=== PATIENT | female | born 1960 | race Caucasian/White ===

== ENCOUNTER 2017-08-06 12:02 | Inpatient (IN) | payer OTHER ==
[2017-08-06] MEDS ORDERED: NA CHLORIDE 0.9% 1,000 ML ONE ×3 (12:37→21:25)
[2017-08-06 13:06] LABS: Absolute Lymphocytes (CBC) 0.8 K/uL (0.7-4.9); Absolute Monocytes 1.2 K/uL (0.1-1.3); Absolute Neutrophil 11.9 K/uL (1.8-8.0); Basophils % 0.1 % (0-1.3); Eosinophils % 0.7 % (0-4.4); Hematocrit 43.9 % (36.0-45.0); MCH 29.6 pg (27.0-35.0); MPV 8.7 fL (7.6-11.3); Monocytes % 8.5 % (3.3-12.3); RBC Red Blood Cell Count 4.93 M/uL (3.86-4.86)
[2017-08-06] MEDS ORDERED: FENTANYL CITR 100 MCG/2 ML ONE ×2 (13:09→19:45)
[2017-08-06 13:11] LABS: Bilirubin Direct 0.2 mg/dL (0-0.2); Bilirubin Total 1.2 mg/dL (0.3-1.2); Protein, Total 7.7 g/dL (6.0-8.3)
[2017-08-06 13:18] LABS: Arterial Blood Carboxyhemoglob 3.9 % (0-1.5); Blood Gas Oxyhemoglobin 79.3 % (94-97); Blood O2 Saturation 83.4 % (92-98.5)
--- NOTE | 2017-08-06 13:26 | RAD REPORT ---
EXAM DESCRIPTION: CT - Stone Protocol - 08/06/2017 12:45 pm CLINICAL HISTORY: Abdominal pain, left flank pain COMPARISON: None. TECHNIQUE: Axial 5 mm thick images were obtained without oral or IV contrast. The ohith-tb-buux span s the entirety of the system partially obscuring uppermost abdomen and lung bases. All CT scans are performed using dose optimization technique as appropriate and may include automated exposure control or mA/KV adjustment according to patient size. FINDINGS: Moderate severity hydronephrosis of the left pelvis and calices noted secondary to a 15 mm UPJ calculus. An additional 6 millimeter calcification is present in the lower pole on the left. Lef t kidney is enlarged and edematous relative to the right. No right-sided hydronephrosis or calculi. N o suspicious renal masses. Isodense masses and pyelonephritis are not excluded on a stone protocol CT scan. Small incidental left adrenal adenoma present. Contracted urinary bladder shows no bladder jennifer culi. Uterus and ovaries show no suspicious findings. Imaged portions of the liver, spleen and pancreas show no suspicious findings on non-contrast imaging . No gallbladder or biliary tree abnormality identified. No stomach or small bowel abnormality identified. There is a large amount of stool filling the colon from cecum to splenic flexure. No active colon process suspected. No hernia, mass or bulky lymphadenopathy noted. No free air, free fluid or inflammatory stranding. No acute or destructive bone process. Degenerative changes are present. Patient has relatively dense calcifications of the infrarenal aorta. No aneurysm. IMPRESSION: At least moderate severity hydronephrosis of the left pelvis and calices secondary to a 15 millimeter UPJ calculus. Left kidney is enlarged and edematous relative to the right. There is a nonobstructing 6 mm calcifica tion in the lower pole. Large amount of stool in the colon from cecum to splenic flexure. No active or acute GI process suspe cted. Isodense masses and pyelonephritis are not excluded on stone protocol technique.
[2017-08-06 13:29] LABS: Urine Blood 2+ (NEG); Urine Glucose 2+ (NEG); Urine Protein 1+ (NEG); Urine Specific Gravity 1.015 (1.005-1.030)
--- NOTE | 2017-08-06 15:53 | ER ---
Nurse's Notes [facility] Name: Melonie Boyd Age: 56 yrs Sex: Female : 1960 Arrival Date: 08/06/2017 Time: 12:05 Bed 19 Private MD: Diagnosis: Hydronephrosis with renal and ureteral calculous obstruction Presentation: 08/06 12:09 Presenting complaint: Patient states: I have pain across my lower back and on my left la1 flank, last BM on Tuesday and vomited a couple days ago. Transition of care: patient was not received from another setting of care. Onset of symptoms was August 06, 2017. Initial Sepsis Screen: Does the patient meet any 2 criteria? HR > 90 bpm. No. Patient's initial sepsis screen is negative. Does the patient have a suspected source of infection? No. Patient's initial sepsis screen is negative. Care prior to arrival: None. 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 N/A - ao Historical: - Allergies: 12:08 all abx except doxycycline; la1 12:08 Codeine; la1 - Home Meds: 19:17 Victoza 2-Maury 0.6 mg/0.1 mL (18 mg/3 mL) subcutaneous pnij 0.2 mL once daily [Active]; ao Farxiga 5 mg oral tab 1 tab once daily [Active]; digoxin 250 mcg Oral tab 1 tab once daily [Active]; digoxin 125 mcg Oral tab 1 tab once daily [Active]; losartan 25 mg oral tab 1 tab once daily [Active]; metformin 1,000 mg Oral tr24 1 tab once daily [Active]; glimepiride 4 mg Oral tab 1 tab once daily [Active]; - PMHx: 12:08 Diabetes - NIDDM; la1 - PSHx: 12:08 None; la1 - Immunization history:: Adult Immunizations up to date. - Social history:: Smoking status: Patient uses tobacco products, smokes one-half pack cigarettes per day. Screenin:38 Abuse screen: Denies threats or abuse. Denies injuries from another. Nutritional ch screening: No deficits noted. Tuberculosis screening: No symptoms or risk factors identified. Fall Risk None identified. Assessment: 12:38 General: Appears in no apparent distress. comfortable, Behavior is cooperative, appropriate for age, quiet. Pain: Complains of pain in posterior aspect of left lateral abdomen, anterior aspect of left lateral abdomen, right lower quadrant and left lower quadrant Pain currently is 9 out of 10 on a pain scale. Pain began gradually, 2-3 days ago. Neuro: No deficits noted. Respiratory: Airway is patent Respiratory effort is even, unlabored, Breath sounds are clear bilaterally. GI: Bowel sounds present X 4 quads. Abdomen is tender to palpation X 4 quads. pt abdomen is slightly firm. Reports bloating, constipation, nausea, vomiting. : No signs and/or symptoms were reported regarding the genitourinary system. Derm: Skin is jaundiced. Derm: mildly. Musculoskeletal: No signs and/or symptoms reported regarding the musculoskeletal system. 12:40 Reassessment: Patient appears in no apparent distress at this time. pt transported to ct. 14:02 Reassessment: Patient appears in no apparent distress at this time. Patient and/or rb1 family updated on plan of care and expected duration. Pain level reassessed. Patient is alert, oriented x 3, equal unlabored respirations, skin warm/dry/pink. 14:56 Reassessment: Patient appears in no apparent distress at this time. Patient and/or ch family updated on plan of care and expected duration. Pain level reassessed. Patient is alert, oriented x 3, equal unlabored respirations, skin warm/dry/pink. General: Appears in no apparent distress. comfortable, Behavior is calm, cooperative, appropriate for age. 15:16 Reassessment: Dr. Loaiza notified of pt status. awaiting erp reassessment. 17:25 Reassessment: Patient appears in no apparent distress at this time. Patient and/or ch family updated on plan of care and expected duration. Pain level reassessed. Patient is alert, oriented x 3, equal unlabored respirations, skin warm/dry/pink. Patient states feeling better. Patient states symptoms have improved. 18:21 Reassessment: Patient appears in no apparent distress at this time. Patient and/or ch family updated on plan of care and expected duration. Pain level reassessed. Patient is alert, oriented x 3, equal unlabored respirations, skin warm/dry/pink. pt sleeping in room, responds to verbal stimuli Patient states feeling better. Patient states symptoms have improved. 19:15 General: Appears in no apparent distress. comfortable, Behavior is calm, cooperative, ao appropriate for age. Pain: Complains of pain in left low back. Neuro: Level of Consciousness is awake, alert, obeys commands, Oriented to person, place, time, situation, Appropriate for age Moves all extremities. Speech is normal, Facial symmetry appears normal. Cardiovascular: Patient's skin is warm and dry. Respiratory: Airway is patent Respiratory effort is even, unlabored, Respiratory pattern is regular, symmetrical. GI: Abdomen is non-distended. : Reports pain in left flank(s). EENT: No signs and/or symptoms were reported regarding the EENT system. Derm: Skin is jaundiced. Musculoskeletal: No signs and/or symptoms reported regarding the musculoskeletal system. 19:25 Reassessment: Received a phone order from Dr Weber to give patient Reglan 10 MG IVP one ao time. Medication was order and administered. See MAR for administration. 19:30 Reassessment: Patient was taking to OR by OR nurse. Printed labs and other results for ao OR nurse. Patient has been put into a hospital gown. Report given to OR nurse. Patient to be going to her assigned room after surgery. Vital Signs: 12:08 BP 116 / 53; Pulse 120; Resp 24; Temp 99.0(TE); Pulse Ox 100% on R/A; Weight 58.97 kg; la1 Height 5 ft. 9 in. (175.26 cm); 13:25 BP 125 / 61; Pulse 94; Resp 15; Temp 99.5; Pulse Ox 99% on R/A; Pain 8/10; ch 15:17 BP 120 / 64; Pulse 88; Resp 16; Temp 98.9; Pulse Ox 99% on R/A; Pain 4/10; ch 17:25 BP 114 / 78; Pulse 96; Resp 13; Pulse Ox 99% on R/A; Pain 0/10; ch 18:21 BP 126 / 62; Pulse 110; Resp 12; Temp 99.8; Pulse Ox 99% on R/A; Pain 3/10; ch 19:20 BP 120 / 65; Pulse 105; Resp 14; Pulse Ox 97% on R/A; Pain 0/10; ao 12:08 Body Mass Index 19.20 (58.97 kg, 175.26 cm) la1 ED Course: 12:05 Patient arrived in ED. sb2 12:08 Arm band placed on right wrist. la1 12:10 Triage completed. la1 12:10 Yas Sawrtz, RN is Primary Nurse. ch 12:11 Grzegorz Loaiza MD is Attending Physician. gs 12:38 No apparent distress. Resting quietly. ch 12:38 Patient has correct armband on for positive identification. Placed in gown. Bed in low ch position. Call light in reach. Side rails up X 1. Adult w/ patient. Pulse ox on. NIBP on. Warm blanket given. 12:38 No provider procedures requiring assistance completed. Inserted saline lock: 18 gauge ch in right forearm, using aseptic technique. Blood collected. 12:43 CT completed. Patient tolerated procedure well. Patient moved back from CT. bq 12:45 CT Stone Protocol In Process Unspecified. EDMS 15:51 Hina Ace MD is Hospitalizing Provider. gs 16:04 Hospitalizing Provider role handed off by Hina Ace MD gs 16:04 Bello Love MD is Hospitalizing Provider. gs 18:21 Patient admitted, IV remains in place. ch Administered Medications: 12:59 Drug: NS 0.9% 1000 ml Route: IV; Rate: 1 bolus; Site: right forearm; ch 15:14 Follow up: IV Status: Completed infusion; IV Intake: 1000ml ch 14:01 Drug: fentaNYL (PF) 50 mcg Route: IVP; Site: right forearm; rb1 15:14 Follow up: Response: No adverse reaction; Marked relief of symptoms ch 16:45 Drug: Gentamicin 2 mg/kg Route: IVPB; Infused Over: 30 mins; Site: right forearm; ch 17:26 Drug: Gentamicin 117 mg Route: IVPB; Infused Over: 30 mins; Site: right forearm; ch 18:21 Follow up: IV Status: Completed infusion; IV Intake: 100ml ch 19:27 Drug: Reglan 10 mg Route: IVP; Site: right forearm; ao 19:30 Follow up: Response: Patient moved to OR ao Point of Care Testing: Blood Glucose: 19:10 Blood Glucose: 101 mg/dL; ch Ranges: Intake: 15:14 IV: 1000ml; Total: 1000ml. ch 18:21 IV: 100ml; Total: 1100ml. ch Outcome: 15:52 Decision to Hospitalize by Provider. gs 19:11 Condition: stable ao 19:31 Admitted to OR accompanied by nurse, via stretcher, with chart, Other bedside report ao given to OR Nurse. Patient to go to her room after surgery 19:31 Instructed on the need for admit. 19:35 Patient left the ED. ao Signatures: Dispatcher [employer] EDMS Yas Swartz, RN RN Katie Chapman Lee, RN RN la1 Dionne Willis RN RN [facility] Alvarado Sow RN RN ao Starr, Gregory, MD MD [place] sb2 Corrections: (The following items were deleted from the chart) 12:11 12:08 BP 116 / 53; Pulse 120bpm; Resp 19bpm; Pulse Ox 100% RA; Temp 99.0F Temporal; la1 58.97 kg; Height 5 ft. 9 in.; BMI: 19.2; la1 12:11 12:09 Acuity: ABRAHAM 3 la1 la1
--- NOTE | 2017-08-06 15:53 | EDPHYS ---
Physician Documentation [facility] Name: Melonie Byod Age: 56 yrs Sex: Female : 1960 Arrival Date: 08/06/2017 Time: 12:05 Bed 19 Private MD: ED Physician Grzegorz Loaiza HPI: 08/06 15:47 This 56 yrs old Female presents to ER via Ambulatory with complaints of gs Abdominal Pain, Back Pain. 15:47 The patient complains of pain in the left low back and left mid back. The pain radiates gs to the left upper quadrant and left lower quadrant. Onset: The symptoms/episode began/occurred 3 day(s) ago, and became worse and became persistent. Modifying factors: The symptoms are alleviated by nothing. the symptoms are aggravated by nothing. Associated signs and symptoms: Pertinent positives: vomiting. Severity of pain: At its worst the pain was severe in the emergency department the pain is unchanged. The patient has experienced similar episodes in the past, a few times. 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 - ao Historical: - Allergies: 12:08 all abx except doxycycline; la1 12:08 Codeine; la1 - Home Meds: 19:17 Victoza 2-Maury 0.6 mg/0.1 mL (18 mg/3 mL) subcutaneous pnij 0.2 mL once daily [Active]; ao Farxiga 5 mg oral tab 1 tab once daily [Active]; digoxin 250 mcg Oral tab 1 tab once daily [Active]; digoxin 125 mcg Oral tab 1 tab once daily [Active]; losartan 25 mg oral tab 1 tab once daily [Active]; metformin 1,000 mg Oral tr24 1 tab once daily [Active]; glimepiride 4 mg Oral tab 1 tab once daily [Active]; - PMHx: 12:08 Diabetes - NIDDM; la1 - PSHx: 12:08 None; la1 - Immunization history:: Adult Immunizations up to date. - Social history:: Smoking status: Patient uses tobacco products, smokes one-half pack cigarettes per day. ROS: 15:47 All other systems are negative. gs Exam: 15:47 Head/Face: Normocephalic, atraumatic. Eyes: Pupils equal round and reactive to light, gs extra-ocular motions intact. Lids and lashes normal. Conjunctiva and sclera are non-icteric and not injected. Cornea within normal limits. Periorbital areas with no swelling, redness, or edema. ENT: Nares patent. No nasal discharge, no septal abnormalities noted. Tympanic membranes are normal and external auditory canals are clear. Oropharynx with no redness, swelling, or masses, exudates, or evidence of obstruction, uvula midline. Mucous membranes moist. Neck: Trachea midline, no thyromegaly or masses palpated, and no cervical lymphadenopathy. Supple, full range of motion without nuchal rigidity, or vertebral point tenderness. No Meningismus. Chest/axilla: Normal chest wall appearance and motion. Nontender with no deformity. No lesions are appreciated. Cardiovascular: Regular rate and rhythm with a normal S1 and S2. No gallops, murmurs, or rubs. Normal PMI, no JVD. No pulse deficits. Respiratory: Lungs have equal breath sounds bilaterally, clear to auscultation and percussion. No rales, rhonchi or wheezes noted. No increased work of breathing, no retractions or nasal flaring. Abdomen/GI: Soft, non-tender, with normal bowel sounds. No distension or tympany. No guarding or rebound. No evidence of tenderness throughout. 15:47 Skin: Warm, dry with normal turgor. Normal color with no rashes, no lesions, and no evidence of cellulitis. MS/ Extremity: Pulses equal, no cyanosis. Neurovascular intact. Full, normal range of motion. Neuro: Awake and alert, GCS 15, oriented to person, place, time, and situation. Cranial nerves II-XII grossly intact. Motor strength 5/5 in all extremities. Sensory grossly intact. Cerebellar exam normal. Normal gait. 15:47 Constitutional: The patient appears alert, awake, in obvious distress, severely distressed. 15:47 Back: CVA tenderness, that is moderate, is noted on the left. Vital Signs: 12:08 BP 116 / 53; Pulse 120; Resp 24; Temp 99.0(TE); Pulse Ox 100% on R/A; Weight 58.97 kg; la1 Height 5 ft. 9 in. (175.26 cm); 13:25 BP 125 / 61; Pulse 94; Resp 15; Temp 99.5; Pulse Ox 99% on R/A; Pain 8/10; ch 15:17 BP 120 / 64; Pulse 88; Resp 16; Temp 98.9; Pulse Ox 99% on R/A; Pain 4/10; ch 17:25 BP 114 / 78; Pulse 96; Resp 13; Pulse Ox 99% on R/A; Pain 0/10; ch 18:21 BP 126 / 62; Pulse 110; Resp 12; Temp 99.8; Pulse Ox 99% on R/A; Pain 3/10; ch 19:20 BP 120 / 65; Pulse 105; Resp 14; Pulse Ox 97% on R/A; Pain 0/10; ao 12:08 Body Mass Index 19.20 (58.97 kg, 175.26 cm) la1 MDM: 12:25 Patient medically screened. gs 15:47 Differential diagnosis: nephrolithiasis, pyelonephritis, UTI, pancreatitis. Data gs reviewed: vital signs, nurses notes. Response to treatment: and as a result, I will admit patient. Physician consultation: Nazia Weber MD and will see patient in inpatient room. 08/06 12:25 Order name: Basic Metabolic Panel; Complete Time: 13:19 08/06 12:25 Order name: CBC with Diff; Complete Time: 13:19 08/06 12:25 Order name: Hepatic Function; Complete Time: 13:19 08/06 12:25 Order name: Lipase; Complete Time: 13:19 08/06 12:25 Order name: Blood Culture* 08/06 12:25 Order name: Urine Culture 08/06 12:25 Order name: Lactate; Complete Time: 13:59 08/06 12:25 Order name: CT Stone Protocol; Complete Time: 13:59 08/06 12:25 Order name: ABG; Complete Time: 13:59 08/06 12:28 Order name: Urine Dipstick--Ancillary (enter results); Complete Time: 13:59 ag 08/06 12:28 Order name: Urine --Ancillary (enter results); Complete Time: 13:59 ag 08/06 13:20 Order name: Urine Microscopic Only 08/06 19:15 Order name: Glucose, Ancillary Testing EDMS 08/06 12:25 Order name: IV Saline Lock; Complete Time: 12:40 08/06 12:25 Order name: Labs collected and sent; Complete Time: 15:14 08/06 15:53 Order name: NPO; Complete Time: 15:57 08/06 19:09 Order name: Fingerstick Glucose; Complete Time: 19:09 Administered Medications: 12:59 Drug: NS 0.9% 1000 ml Route: IV; Rate: 1 bolus; Site: right forearm; ch 15:14 Follow up: IV Status: Completed infusion; IV Intake: 1000ml ch 14:01 Drug: fentaNYL (PF) 50 mcg Route: IVP; Site: right forearm; rb1 15:14 Follow up: Response: No adverse reaction; Marked relief of symptoms ch 16:45 Drug: Gentamicin 2 mg/kg Route: IVPB; Infused Over: 30 mins; Site: right forearm; ch 17:26 Drug: Gentamicin 117 mg Route: IVPB; Infused Over: 30 mins; Site: right forearm; ch 18:21 Follow up: IV Status: Completed infusion; IV Intake: 100ml ch 19:27 Drug: Reglan 10 mg Route: IVP; Site: right forearm; ao 19:30 Follow up: Response: Patient moved to OR ao Point of Care Testing: Blood Glucose: 19:10 Blood Glucose: 101 mg/dL; ch Ranges: Critical Glucose Levels:Adult <50 mg/dl or >400 mg/dl <40 mg/dl or >180 mg/dl Disposition: 08/06/17 15:52 Hospitalization ordered by Bello Love for Inpatient Admission. Preliminary diagnosis is Hydronephrosis with renal and ureteral calculous obstruction. - Bed requested for Telemetry/MedSurg (Inpatient). - Status is Inpatient Admission. ao - Condition is Stable. - Problem is new. - Symptoms have improved. UTI on Admission? Yes Signatures: Dispatcher [employer] EDMS Yas Swartz RN RN ch Solis, Maria ms Attema, Lee RN RN la1 Dionne Willis RN RN rb1 Alvarado Sow RN RN ao Grzegorz Loaiza MD MD Corrections: (The following items were deleted from the chart) 16:04 15:52 Hospitalization Ordered by Hina Ace MD for Inpatient Admission. Preliminary gs diagnosis is Hydronephrosis with renal and ureteral calculous obstruction. Bed requested for Telemetry/MedSurg (Inpatient). Status is Inpatient Admission. Condition is Stable. Problem is new. Symptoms have improved. UTI on Admission? Yes. gs 18:33 16:04 08/06/2017 15:52 Hospitalization Ordered by Bello Love MD for Inpatient ms Admission. Preliminary diagnosis is Hydronephrosis with renal and ureteral calculous obstruction. Bed requested for Telemetry/MedSurg (Inpatient). Status is Inpatient Admission. Condition is Stable. Problem is new. Symptoms have improved. UTI on Admission? Yes. 19:35 18:33 08/06/2017 15:52 Hospitalization Ordered by Bello Love MD for Inpatient ao Admission. Preliminary diagnosis is Hydronephrosis with renal and ureteral calculous obstruction. Bed requested for Telemetry/MedSurg (Inpatient). Status is Inpatient Admission. Condition is Stable. Problem is new. Symptoms have improved. UTI on Admission? Yes. ms
[2017-08-06] MEDS ORDERED: Gentamicin Inj 120 MG in NA CHLORIDE 0.9% 100 ML IVPB ONE (16:00)
[2017-08-06] MEDS ORDERED: ACETAMINOPHEN 500 MG TAB PO PRN (17:37)
[2017-08-06] MEDS ORDERED: FENTANYL CITR 100 MCG/2 ML IV PRN (17:38)
[2017-08-06] MEDS ORDERED: NA CHLORIDE 0.9% 1,000 ML IV SCH ×2 (18:00→22:00)
[2017-08-06] MEDS ORDERED: METOCLOPRAMIDE 10 MG/2mL INJ ONE (19:27)
[2017-08-06] MEDS ORDERED: PROPOFOL 200 MG/20 ML VIAL IV ONE (19:45)
[2017-08-06] MEDS ORDERED: GENTAMICIN 80 MG/100 ML BAG 80 MG/100 ML BAG IV ONE (20:16)
[2017-08-06] MEDS ORDERED: KETOROLAC 30 MG/ML INJ ONE (20:31)
[2017-08-06] MEDS ORDERED: ONDANSETRON HCL 40 MG/20 ML VIAL ONE (20:31)
[2017-08-06] MEDS ORDERED: DEXAMETHASONE 10 MG/ML VIAL ONE (20:32)
--- NOTE | 2017-08-06 21:08 | CON ---
History Of Present Illness: This is a pleasant 56-year-old female, history of diabetes, began having pain a few days ago and became worse today with nausea and vomiting. So, [facility] She has been having some fevers also. CT scan revealed a moderate severe hydronephrosi s in the left pelvis and calices secondary to a 15 mm stone at the UPJ and also an additional [address] one seen in the lower pole of the left kidney. There are no stones on the right kidney. She got ele e hydration in the ER, felt a lot better. We made her n.p.o. for about 8 hours and decided to do a c ystoscopy and left double-J stent placement. All the risks and benefits were reviewed with her and s he wishes to proceed. Her heart rate was over 90 when she arrives and blood pressure was low, meetin g criteria for sepsis. She was not septic when I saw her. She was pretty stable. Allergies: SHE HAS MULTIPLE ALLERGIES. SHE SAID TO P.O. ANTIBIOTICS EXCEPT DOXYCYCLINE. SHE SAID S HE IS ALLERGIC TO CODEINE, BUT NOT HYDROCODONE. Home Medications: Victoza subcutaneous 0.2 mL once daily, Farxiga 5 mg daily, digoxin 250 mcg daily and also digoxin 125 daily, losartan 25 mg daily, metformin 1000 mg daily, glimepiride 4 mg daily. Past Medical History: Ojb-lyewnxi-yhaoitmag diabetes mellitus. Past Surgical History: None. Immunizations: Up-to-date. Physical Examination: Vital Signs: BP 120/65, pulse 105, respirations 14, pulse ox 97%. Pain was much better after receiv ing pain medication. Laboratory Data: The patient's laboratory reveal hematology, white count 14.1, H and H are 14 and 43 , platelets 233. ABG done showing pH 7.44, CO2 of 36, PO2 of 45, base excess 24. Hemoglobin 79 and inspired O2 21%. Chemistry shows sodium 132, potassium 4.0, chloride 99, carbon dioxide 21, BUN 22, creatinine 0.83, GFR 71, glucose 161. LFTs, calcium all normal. Lipase normal. Urine study showed pH 6.0, blood 2+, nitrite negative. Assessment And Plan: A 15-mm stone left ureteropelvic junction causing fevers and pain. The patient does need to be drained. She is diabetic. She does need a stent tonight, I do not want to wait unt il tomorrow. She has been n.p.o. for 8 hours. We also gave her Reglan half hour before surgery. Jenna rich is ready to proceed for cystoscopy and stent placement. She knows all the risks and benefits and w ishes to proceed. ROSENDO/JUSTICE Voice ID: [id number] Report ID: [id number]
--- NOTE | 2017-08-06 21:26 | RAD REPORT ---
EXAM DESCRIPTION: RAD - Urethrocystogrphy Retrograde - 08/06/2017 9:14 pm FINDINGS: Abdominal fluoroscopy performed. Multiple portable fluoroscopic images were obtained durin g placement of a left ureteral stent. No suspicious or unexpected finding.
[2017-08-06] MEDS ORDERED: GLUCAGON 1 MG/VIAL IM PRN (21:34)
[2017-08-06] MEDS ORDERED: D50W 25 GM/50 ML SYRINGE IV PRN (21:34)
--- NOTE | 2017-08-06 22:14 | OP ---
Surgeon: Nazia Weber MD Anesthesiologist: Dr. Ley. Preoperative Diagnosis: Left ureteropelvic junction stone with obstruction, rule out sepsis. Postoperative Diagnoses: 1.Left ureteropelvic junction stone with obstruction, rule out sepsis. 2.Pyonephrosis, pus from the left renal pelvis impacted stone. Procedures Performed: Cystoscopy, left retrograde pyelogram, insertion of double-J stent, 6 x 30 cm, Archer placement, string left attached to the meatus. Complex procedure secondary to pyonephrosis an d impacted stone. We had switched the guidewire to a glidewire and then switched back to a guidewire to place the stent. Anesthesia: General. Estimated Blood Loss: Minimal. Replacement: See record. Path Specimen: None. Drains Placed: Stent and Archer. Indications: A 56-year-old diabetic lady, came in with flank pain, fevers, and stone. Procedure In Detail: She was taken to the operative room after all the general information, alternat j carlos, and risks were given. She was placed in a supine lithotomy position. She was prepped and drap ed. After anesthesia was administered, the bladder was scoped with 70-degree lens. No lesions were found. Both orifices found in their normal anatomical position. We noticed that there was some pus coming from the left orifice after placing the guidewire inside. Retrograde was done gently, only a few cc to get the contrast to go toward the stone, seemed like it was blocked there. We then placed the guidewire up to the stone and also the ureteral catheter and tried to manipulate the regular Bent son past the stone, it would not pass. We tried a tiny amount of contrast to get by the stone, which went. We then used a glidewire to pass the stone after manipulation. The glidewire went by the sto ne, then we passed the ureteral catheter over the guidewire, switched to a regular Bentson wire. Aft er we placed the ureteral catheter in the pelvis, we aspirated a couple of cc of pus and sent that of f for culture and then we placed a few cc of contrast in the pelvis just to outline the pelvis taking care not to pressurize the pelvis to avoid sepsis. The Bentson guidewire was then placed and we willie nida a 30 cm x 6-Bengali stent that coiled in the renal pelvis and also in the bladder once the wire wa s removed. The patient tolerated the procedure well and went to recovery room in stable condition. ROSENDO/JUSTICE Voice ID: [id number] Report ID: [id number]
[2017-08-06] MEDS: CIPROFLOXACIN 400mg IV 400 MG/200 ML BAG IV SCH (22:50)
[2017-08-06] MEDS: NA CHLORIDE 0.9% 1,000 ML IV SCH (23:42)
[2017-08-07] MEDS ORDERED: GENTAMICIN 80 MG/100 ML BAG 80 MG/100 ML BAG IV SCH (04:00)
[2017-08-07] MEDS: NA CHLORIDE 0.9% 1,000 ML IV SCH (05:45)
[2017-08-07] MEDS ORDERED: TAMSULOSIN 0.4 MG SR CAP PO SCH (09:00)
[2017-08-07] MEDS: CIPROFLOXACIN 400mg IV 400 MG/200 ML BAG IV SCH ×2 (09:12→19:06)
[2017-08-07] MEDS: INSULIN -REGULAR HUMAN 50 UNIT/0.5 ML ML SQ SCH ×3 (09:13→18:04)
[2017-08-07 11:50] LABS: Absolute Lymphocytes (CBC) 0.9 K/uL (0.7-4.9); Absolute Monocytes 0.6 K/uL (0.1-1.3); Absolute Neutrophil 8.1 K/uL (1.8-8.0); Basophils % 0.1 % (0-1.3); Hematocrit 40.1 % (36.0-45.0); Lymphocytes % 9.3 % (15.3-44.8); MCH 29.1 pg (27.0-35.0); Monocytes % 6.1 % (3.3-12.3); RBC Red Blood Cell Count 4.45 M/uL (3.86-4.86)
[2017-08-07 12:05] LABS: Potassium 4.3 mEq/L (3.6-5.0)
--- NOTE | 2017-08-07 13:39 | PN ---
Subjective: The patient is feeling well, looks good objective. Objective: White count [place] down [place] 14,000 [place] 42696. Cultures are still pending. She responded wel l to Cipro. Chemistry shows glucose 316, to say that is high for her normal, when she walks at home is less than 200. She wants to get out and started walking again, get back to work. Sodium was 131, chloride 100, carbon dioxide 23, BUN 30, creatinine 0.68, GFR 88, estimated. Follow up glucose was 253. Assessment: Status post kidney stone, stent placement, pyelonephrosis. Archer was placed last night. Plan: Discontinue Archer. Discharge the patient home. On Cipro for 14 days. Follow up after that f or a more definitive therapy for her kidney stone. ROSENDO/MODL Voice ID: [id number] Report ID: [id number]
--- NOTE | 2017-08-07 15:35 | P.SSS ---
Patient History Date of Service: 08/07/17 Reason for admission: BACK PAIN, NAUSE AND VOMITING History of Present Illness: MS. LARKIN IS A DIABETIC WITH GOOD CONTROL COMES WITH BACK PAIN, NAUSEA , VOMITING FOR 3 DAYS. SHE THOUGHT IT WAS INDIGESTION. TOOK ADVIL , GOT BETTER AND THEN GOT WORSE. SHE HAS HAD RENAL STONE REMOVAL BY DR SOLANO LAST NIGHT. SHE IS A LOT BETTER . 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 I GAVE HER CIPRO ORALLY. SHE HAS REACTIONS TO MANY ABX. SHE HAS HAD NO ISSUES ON THIS ONE SO FAR. SHE KNOWS ABOUT INTERACTION WITH DIGOXIN. SHE IS STABLE TO GO HOME. WILL FU ON CULTURE. Allergies ampicillin Allergy (Verified 08/07/17 02:23) Itching cephalexin [From Keflex] Allergy (Verified 08/07/17 02:23) Itching codeine Allergy (Unverified 08/06/17 19:40) Unknown Penicillins Allergy (Verified 08/07/17 02:23) Itching Home Medications: Dapagliflozin Propanediol [Farxiga] 5 mg PO [id number] 08/06/17 Digoxin [Lanoxin*] 125 mcg PO [id number] 08/06/17 Digoxin [Lanoxin*] 250 mcg PO [id number] 08/06/17 Glimepiride 4 mg PO BEDTIME 08/06/17 Liraglutide [Victoza 2-Maury] 1.2 mg SQ [id number] 08/06/17 Losartan Potassium 25 mg PO [id number] 08/06/17 Metformin HCl 1,000 mg PO BID 08/06/17 - Past Medical/Surgical History Has patient received pneumonia vaccine in the past: Yes Diabetic: Yes -: Diabetes -: Arrythmia -: Tendon repair left upper arm - Family History Father History Unknown: Yes -: Lung disease, Cancer Mother -: Heart disease, Hypertension, Diabetes, Other (see notes) Notes: thyroid problems - Social History Smoking Status: Current every day smoker Alcohol use: No CD- Drugs: No Caffeine use: No Place of Residence: Home Review of Systems 10-point ROS is otherwise unremarkable Physical Examination - Vital Signs Temperature: 97 F Blood Pressure: 121/55 Pulse: 64 Respirations: 18 Pulse Ox (%): 100 - Physical Exam General: Alert, In no apparent distress HEENT: Atraumatic, PERRLA, Mucous membr. moist/pink, EOMI, Sclerae nonicteric Neck: Supple, 2+ carotid pulse no bruit, No LAD, Without JVD or thyroid abnormality Respiratory: Clear to auscultation bilaterally, Normal air movement Cardiovascular: Regular rate/rhythm, Normal S1 S2 Gastrointestinal: Normal bowel sounds, No tenderness Musculoskeletal: No tenderness Integumentary: No rashes Neurological: Normal gait, Normal speech, Normal strength at 5/5 x4 extr, Normal tone, Normal affect Lymphatics: No axilla or inguinal lymphadenopathy - Diagnosis (Problem(s)) (1) Acute pyelonephritis Current Visit: Yes Status: Acute Plan: ABOVE IV AND THEN ORAL CIPRO FU WITH DR SOLANO. (2) Hydronephrosis with renal and ureteral calculous obstruction Current Visit: Yes Status: Acute Plan: ABOVE. Treatment Summary: ABOVE, SHE IS DOING A LOT BETER. - Disposition Disposition: ROUTINE DISCHARGE Condition: FAIR Patient Discharge Instructions: VISIT DR. SOLANO IN CLINIC COMING WEEK. I WILL SEE YOU NEXT WEEK. CIPRO ORALLY BID IS THE ABX FOR YOU. YOU ARE ALLERGIC TO MANY ABX. CIPRO CAN INTERACT WITH DIGOXIN SO YOU MAY TAKE LESSER DOSE OF DIGOXIN. WE HAVE NO OTHER GOOD CHOICE FOR ABX. Diet: ADA Activity: Ad erlin
== END 2017-08-07 20:55 | disposition home or self-care (01) | DRG 694 ==
LOC: ER 12:02 → ERHOLD 15:56 → 2ND 21:26
PROVIDERS: ADMIT Internal Medicine; ATTEND Internal Medicine
PROC: 0WHR8YZ Insertion of Other Device into Genitourinary Tract, Via Natural or Artificial Opening Endoscopic (ICD-10-PCS; 2017-08-06)
PROC: BT1FZZZ Fluoroscopy of Left Kidney, Ureter and Bladder (ICD-10-PCS; principal; 2017-08-06 20:00)
DX: N13.2 Hydronephrosis with renal and ureteral calculous obstruction (principal); N13.6 Pyonephrosis; E11.9 Type 2 diabetes mellitus without complications; F17.210 Nicotine dependence, cigarettes, uncomplicated; Z88.0 Allergy status to penicillin
CPT/HCPCS: 36415; 51610; 74176; 74450; 76377; 80048; 80076; 81003; 81025; 82805; 82962; 83605; 83690; 85025; 87040; 87086; 87088; 87205; 96361; 96365; 96366; 96375; 99285; J0744; J1100; J1580; J2405; J2765; J3010; J7030; Q9967

== ENCOUNTER 2017-08-30 09:11 | Day surgery (SDC) | payer OTHER ==
[2017-08-30 08:40] LABS: Absolute Lymphocytes (CBC) 2.4 K/uL (0.7-4.9); Absolute Monocytes 0.6 K/uL (0.1-1.3); Absolute Neutrophil 3.7 K/uL (1.8-8.0); Basophils % 0.8 % (0-1.3); Eosinophils % 3.2 % (0-4.4); Hematocrit 43.8 % (36.0-45.0); Lymphocytes % 35.1 % (15.3-44.8); MCH 29.6 pg (27.0-35.0); MCV 87.6 fL (80-100); MPV 8.5 fL (7.6-11.3)
[2017-08-30 08:52] LABS: Bicarbonate 29 mEq/L (21-31); Glucose Level 172 mg/dL (65-120); Protime INR 0.88; Sodium Level 141 mEq/L (135-145)
[2017-08-30 08:56] LABS: BUN Blood Urea Nitrogen 18 mg/dL (6-20); Uric Acid 2.9 mg/dL (2.6-8.0)
--- NOTE | 2017-08-30 09:26 | RAD REPORT ---
EXAM DESCRIPTION: Daisy Calix (2 Views)08/30/2017 9:00 am CLINICAL HISTORY: Abdominal pain/preop COMPARISON: 2008 FINDINGS: The lungs appear clear of acute infiltrate. The heart is normal size IMPRESSION: No acute abnormalities displayed
[2017-08-30] MEDS ORDERED: GENTAMICIN 100 MG/100 ML BAG 100 MG/100 ML BAG IV ONE (09:28)
[2017-08-30] MEDS ORDERED: Ringers Lactate 0 ML IV ONE (09:28)
[2017-08-30] MEDS ORDERED: NA CHLORIDE 0.9% 1,000 ML ONE (09:34)
--- NOTE | 2017-08-30 09:52 | RAD REPORT ---
EXAM DESCRIPTION: RAD - Abdomen 1 View (KUB) - 08/30/2017 9:00 am CLINICAL HISTORY: ICD N 20.0 FINDINGS: The bowel gas pattern is unremarkable. A large amount of stool is present throughout the c olon. 15 millimeter left renal calculus is unchanged in appearance and position from the August 23, 2017 exam
[2017-08-30 10:29] LABS: Urine Appearance CLEAR; Urine Bilirubin NEGATIVE (NEG); Urine Color YELLOW; Urine Glucose 1+ (NEG); Urine Specific Gravity 1.025 (1.005-1.030)
[2017-08-30 10:30] LABS: Urine Blood TRACE (NEG); Urine Microscopic Reflex ORDER UMIC; Urine Protein TRACE (NEG); Urine Urobilinogen 0.2 mg/dL (0.2-1.0)
[2017-08-30 10:31] LABS: Urine Bacteria <20 /HPF (<20); Urine RBC <5 /HPF (NONE SEEN)
[2017-08-30 10:32] LABS: Calcium Oxalate Crystals- Ur FEW (NONE SEEN); Urine Culture Reflex Order REFLEXED
[2017-08-30] MEDS ORDERED: MIDAZOLAM HCL 2 MG/2 ML INJ ONE (10:56)
[2017-08-30] MEDS ORDERED: PROPOFOL 200 MG/20 ML VIAL IV ONE (10:56)
[2017-08-30] MEDS ORDERED: LIDOCAINE 2% MPF 5 ML VIAL ONE (10:57)
[2017-08-30] MEDS ORDERED: FENTANYL CITR 100 MCG/2 ML ONE (10:57)
--- NOTE | 2017-08-30 14:42 | EKG ---
Test Date: 2017-08-30 Test Time: 08:14:27 Form Setter Helper: JESSI MEASUREMENT RESULTS: Intervals: Rate: 67 CT: 184 QRSD: 74 QT: 376 QTc: 397 [place]: P: 58 CT: 184 QRS: 65 T: 40 INTERPRETIVE STATEMENTS: Normal sinus rhythm with sinus arrhythmia ST abnormality, possible digitalis effect Abnormal ECG Compared to ECG 06/25/2008 08:44:21 ST (T wave) deviation now present Electronically Signed On 08-30-17 14:40:06 CDT by Josh Lora
== END 2017-08-30 13:40 | disposition home or self-care (01) ==
LOC: OR 09:11
PROVIDERS: ATTEND Urology
PROC: 0TF4XZZ Fragmentation in Left Kidney Pelvis, External Approach (ICD-10-PCS; principal; 2017-08-30 11:00)
DX: N20.0 Calculus of kidney (principal); E11.9 Type 2 diabetes mellitus without complications; I49.9 Cardiac arrhythmia, unspecified; F17.210 Nicotine dependence, cigarettes, uncomplicated; Z88.0 Allergy status to penicillin; Z88.6 Allergy status to analgesic agent
CPT/HCPCS: 36415; 50590; 71046; 74018; 80048; 81003; 81015; 82962; 84100; 84550; 85025; 85610; 85730; 87086; 87088; 93005; J1580; J2250; J3010; J7030

== ENCOUNTER 2019-01-03 06:25 | Day surgery (SDC) | payer OTHER ==
--- NOTE | 2019-01-02 10:37 | RAD REPORT ---
EXAM DESCRIPTION: RAD - Chest Pa And Lat (2 Views) - 01/02/2019 10:23 am CLINICAL HISTORY: preop Chest pain. COMPARISON: Abdomen 1 View (KUB) dated 09/07/2017; Abdomen 1 View (KUB) dated 08/30/2017; Chest Pa And Lat (2 Views) dated 08/30/2017; Abdomen 1 View (KUB) dated 08/23/2017 FINDINGS: The lungs are emphysematous but clear. The heart is upper limit of normal in size. No disp laced fractures. IMPRESSION: COPD.
[2019-01-02 11:19] LABS: Absolute Lymphocytes (CBC) 2.4 K/uL (0.7-4.9); Basophils % 0.8 % (0-1.3); Lymphocytes % 33.9 % (15.3-44.8); RBC Red Blood Cell Count 4.61 M/uL (3.86-4.86)
[2019-01-02 11:26] LABS: BUN Blood Urea Nitrogen 20 mg/dL (7-18); Bicarbonate 32 mmol/L (21-32); Glucose Level 119 mg/dL (74-106); Potassium 3.7 mmol/L (3.5-5.1); Sodium Level 140 mmol/L (136-145)
--- NOTE | 2019-01-02 12:11 | EKG ---
Test Date: 2019-01-02 Test Time: 09:55:11 Flying Teacher: JESSI MEASUREMENT RESULTS: Intervals: Rate: 75 WI: 182 QRSD: 78 QT: 354 QTc: 395 [place]: P: 66 WI: 182 QRS: 70 T: 53 INTERPRETIVE STATEMENTS: Normal sinus rhythm Possible Left atrial enlargement Nonspecific ST and T wave abnormality Abnormal ECG Compared to ECG 08/30/2017 08:14:27 Sinus arrhythmia no longer present ST (T wave) deviation still present Electronically Signed On 01-02-19 12:10:09 CDT by Josh Lora
[2019-01-03] MEDS ORDERED: NA CHLORIDE 0.9% 1,000 ML ONE (06:49)
[2019-01-03] MEDS ORDERED: CIPROFLOXACIN 400mg IV 400 MG/200 ML BAG IV ONE (06:49)
[2019-01-03] MEDS ORDERED: FENTANYL CITR 100 MCG/2 ML ONE ×2 (06:55→12:25)
[2019-01-03] MEDS ORDERED: PROPOFOL 200 MG/20 ML VIAL IV ONE ×2 (06:55→12:25)
[2019-01-03] MEDS ORDERED: ROCURONIUM 50 MG/5 ML VIAL IV ONE ×2 (06:55→12:29)
[2019-01-03] MEDS ORDERED: LIDOCAINE 2% MPF 5 ML VIAL ONE ×2 (06:55→12:25)
[2019-01-03] MEDS ORDERED: MIDAZOLAM HCL 2 MG/2 ML INJ ONE ×2 (06:56→12:25)
[2019-01-03] MEDS ORDERED: ONDANSETRON 4 MG/2 ML VIAL ONE ×2 (06:56→12:28)
[2019-01-03] MEDS ORDERED: BUPIVACAINE 0.5% PF 10 ML VIAL ONE (07:12)
[2019-01-03] MEDS ORDERED: LIDOCAINE JELLY 2%- 5 ML TUBE ONE (07:42)
[2019-01-03] MEDS ORDERED: BSS OPTHALMIC SOL 15 ML BOT OPTH ONE (07:48)
[2019-01-03] MEDS ORDERED: EPHEDRINE SULF 50 MG/ML VIAL ONE (08:01)
--- NOTE | 2019-01-03 08:43 | P.BOP ---
Preoperative diagnosis: right eyelid subQ mass, right upper arm tender subQ masses with ulceration Primary procedure: 1. Excisional biopsy of right eyelid subQ mass 2x1cm Secondary procedure: 2. Excisional biopsy of right prox upper arm tender subQ mass 1x1cm Other procedure(s): 3. Excisional biopsy of right mid-distal upper arm tender subQ mass 1x1cm Foreman/Project Manager: with frozen Estimated blood loss: <5cc Specimen: masses x 3 Findings: keratosis, solar elastosis . Final diagnosis pending Anesthesia: General Complications: None Transferred to: Recovery Room Condition: Good
[2019-01-03 10:33] VITALS: BP 121/68; TEMP 97.5; O2SAT 97
--- NOTE | 2019-01-03 20:39 | OP ---
Surgeon: Ruy Ruvalcaba MD Diagnoses: Right periorbital eyelid subcutaneous mass and 2 masses from the right upper arm. Procedure: Excisional biopsy of frozen section of the 2 right arm masses and the eyelid mass. Disposition: Home. Activity: As tolerated. No heavy lifting. Followup: Follow up in my office in 1 week. Call for appointment [phone]. Keep area dry for 48 ho urs, then may shower. Keep Steri-Strips intact. In the area of the eye, avoid direct sunlight. May use Neosporin ointment over the area. WERNER/JUSTICE Voice ID: [id number] Report ID: [id number]
--- NOTE | 2019-01-03 20:39 | OP ---
Date of Procedure: 01/03/2019 Surgeon: Ruy Ruvalcaba MD Preoperative Diagnoses: 1.Right eyelid subcutaneous enlarging mass. 2.Right upper arm tender subcutaneous masses. 3.Right upper arm tender subcutaneous mass, mid distal, with ulceration. Procedure: 1.Excisional biopsy of right eyelid subcutaneous tender mass, 2 x 1 cm. 2.Excisional biopsy of right proximal arm subcutaneous tender mass, 1 x 1 cm. 3.Excisional biopsy of right mid distal upper arm tender subcutaneous mass with ulceration, 1 x 1 cm . The last 2 are with frozen section. Anesthesia: General plus local. Findings: This is the case of a female who comes with 3 problems. On eyelid, a subcutaneous mass th at is enlarging fast, she wants that excised. She has history of cysts in the past with infection an d she does not want that on her eyelid, especially when her skin has discomfort under the groin. She also have 2 more masses and those are subcutaneous masses in the right upper arm. She noticed some scales present all over the skin, all over those subcutaneous masses and also some ulceration too. S he wants them excised during the same anesthesia. Those 2, we are going to sent for frozen section. Indication: This is a case of a female who comes to us with above diagnosis. Fully explained the be nefits, alternatives, and risks of excisional biopsy of these 3 masses, which include, but not limite d to infection, bleeding, damage to adjacent structures, anesthesia complication, eschar, tenderness, ME, and even . She also understands this may not relieve any symptoms. She might need more th an one surgical intervention. She understood, signed a consent. Three areas were marked by and t he patient in the holding room. Description Of Procedure: Patient was brought to the operating room, placed in supine position. Ane sthesia was done without complication. Each area was prepped and draped in a sterile fashion. Speci al attention was placed to the area of the eye to avoid any abrasion. We covered the eye for protect ion. The eyelid was then exposed. We proceeded to withhold the skin in that area with the subcutane ous tissues and then proceeded to remove the mass with the help of a knife. The area was irrigated. Hemostasis was obtained. Then, the area was closed with 6-0 plain gut sutures. Hemostasis was obta ined before closure. Then, we proceeded to go to the right arm region. Those were the ones that hav e ulcerations and scales suspicious for cancer. So, we proceeded to do each one individually at the same technique, which consisted of wedge incision of the skin all the way down to subcutaneous tissue not only to include the subcutaneous mass, but also the skin covering that area because of the ulcer ation and the scales. We sent the specimen to the pathologist, each 1 comes back as keratosis, but n o clear evidence of a cancer at this moment, although final pathology will give us a better idea. Ea ch area was irrigated and closed with 3-0 chromic in a subcuticular fashion with a Steri-Strip on top . Sponge counts and instrument counts were correct. Patient tolerated the procedure well. Patient was sent to Recovery in stable condition. WERNER/JUSTICE Voice ID: [id number] Report ID: [id number]
--- NOTE | 2019-01-04 08:55 | DS ---
Date of Discharge: 01/03/2019 Diagnoses: Right periorbital eyelid subcutaneous mass and 2 masses from the right upper arm. Procedure: Excisional biopsy of frozen section of the 2 right arm masses and the eyelid mass. Disposition: Home. Activity: As tolerated. No heavy lifting. Followup: Follow up in my office in 1 week. Call for appointment [phone]. Keep area dry for 48 ho urs, then may shower. Keep Steri-Strips intact. In the area of the eye, avoid direct sunlight. May use Neosporin ointment over the area. WERNER/JUSTICE Voice ID: [id number] Report ID: [id number]
== END 2019-01-03 10:20 | disposition home or self-care (01) ==
LOC: OR 06:25
PROVIDERS: ATTEND Surgery
PROC: 0JBD0ZZ Excision of Right Upper Arm Subcutaneous Tissue and Fascia, Open Approach (ICD-10-PCS; 2019-01-03)
PROC: 0JBD0ZZ Excision of Right Upper Arm Subcutaneous Tissue and Fascia, Open Approach (ICD-10-PCS; 2019-01-03)
PROC: 0JB10ZZ Excision of Face Subcutaneous Tissue and Fascia, Open Approach (ICD-10-PCS; principal; 2019-01-03 07:30)
DX: L72.0 Epidermal cyst (principal); R22.31 Localized swelling, mass and lump, right upper limb; L98.499 Non-pressure chronic ulcer of skin of other sites with unspecified severity; L57.8 Other skin changes due to chronic exposure to nonionizing radiation; E11.9 Type 2 diabetes mellitus without complications; F17.210 Nicotine dependence, cigarettes, uncomplicated; Z88.0 Allergy status to penicillin; Z88.6 Allergy status to analgesic agent; Z88.3 Allergy status to other anti-infective agents; Z91.048 Other nonmedicinal substance allergy status; Z80.1 Family history of malignant neoplasm of trachea, bronchus and lung; Z83.3 Family history of diabetes mellitus; Z82.49 Family history of ischemic heart disease and other diseases of the circulatory system
CPT/HCPCS: 93005; 85025; 80048; 36415 ×2; 80162; 82962 ×2; 88331; 88304; 88305; 71046; 11442; 11401 ×2; J2704; J2250; J3010; J7030; J2405; J0744

== ENCOUNTER 2019-04-15 17:50 | Emergency (ER) | payer OTHER ==
[2019-04-15] MEDS ORDERED: NA CHLORIDE 0.9% 1,000 ML ONE (19:45)
[2019-04-15 20:33] LABS: BUN Blood Urea Nitrogen 14 mg/dL (7-18); Bicarbonate 31 mmol/L (21-32); Glucose Level 168 mg/dL (74-106); Potassium 3.6 mmol/L (3.5-5.1); Sodium Level 139 mmol/L (136-145)
--- NOTE | 2019-04-15 20:36 | EDPHYS ---
Physician Documentation [facility] Name: Melonie Boyd Age: 58 yrs Sex: Female : 1960 Arrival Date: 04/15/2019 Time: 17:52 Bed 28 Private MD: Bello Love V ED Physician Keon Zapata HPI: 04/15 19:45 This 58 yrs old Female presents to ER via Ambulatory with complaints of High rn Blood Sugar - 280. 19:45 The patient or guardian reports hyperglycemia. Onset: The symptoms/episode rn began/occurred 1 week(s) ago. Current symptoms: In the emergency department the patient's symptoms are unchanged from the initial presentation. The patient has not experienced similar symptoms in the past. The patient has been recently seen by a physician:. Reports recently started on insulin, taken off glimepride unless needed, is supposed to increase 2 units daily up to 20, currently taking 14. Reports glucose has been high 200s, no 300s, reports fatigue and increased urination. NO syncope. No vomiting/abd pain. Is used to stricter control and is stressing about it. Sees endocrine for this.. Historical: - Allergies: 18:51 all abx except doxycycline; rv 18:51 Codeine; rv - PMHx: 18:51 Diabetes - NIDDM; Atrial Fib; Kidney stones; rv - PSHx: 18:51 None; rv - Immunization history:: Adult Immunizations up to date. - Coronavirus screen:: The patient has NOT traveled to [place], [place], or [place] in the past 14 days. Proceed with normal triage process as indicated. The patient has NOT had contact with known/suspected case of Coronavirus? Proceed with normal triage procedures. - Social history:: Smoking status: Patient reports the use of cigarette tobacco products, smokes one pack cigarettes per day. - Family history:: not pertinent. - Ebola Screening: : No symptoms or risks identified at this time. - Hospitalizations: : No recent hospitalization is reported. ROS: 19:45 Constitutional: Negative for fever, chills, and weight loss, Eyes: Negative for injury, rn pain, redness, and discharge, Neck: Negative for injury, pain, and swelling, Cardiovascular: Negative for chest pain, palpitations, and edema, Respiratory: Negative for shortness of breath, cough, wheezing, and pleuritic chest pain, Abdomen/GI: Negative for abdominal pain, nausea, vomiting, diarrhea, and constipation, MS/Extremity: Negative for injury and deformity, Skin: Negative for injury, rash, and discoloration, Neuro: Negative for headache, numbness, tingling, and seizure. Exam: 19:45 Constitutional: This is a well developed, well nourished patient who is awake, alert, rn and in no acute distress. Head/Face: Normocephalic, atraumatic. Eyes: Pupils equal round and reactive to light, extra-ocular motions intact. Lids and lashes normal. Conjunctiva and sclera are non-icteric and not injected. Cornea within normal limits. Periorbital areas with no swelling, redness, or edema. ENT: MMM Cardiovascular: Regular rate and rhythm. No pulse deficits. Respiratory: No increased work of breathing, no retractions or nasal flaring. Abdomen/GI: soft, non-tender MS/ Extremity: Pulses equal, no cyanosis. Neurovascular intact. Full, normal range of motion. Equal circumference. Neuro: Awake and alert, GCS 15, oriented to person, place, time, and situation. Cranial nerves II-XII grossly intact. Motor strength 5/5 in all extremities. Sensory grossly intact. Cerebellar exam normal. Normal gait. Vital Signs: 18:48 BP 140 / 73; Pulse 76; Resp 17; Temp 98.2; Pulse Ox 100% ; Weight 61.23 kg; rv 21:00 BP 131 / 61; Pulse 65; Resp 14; Temp 98.6; Pulse Ox 98% on R/A; Pain 0/10; ch2 MDM: 19:06 Patient medically screened. rn 20:35 Differential diagnosis: hyperglycemia. Data reviewed: vital signs, nurses notes, labeler test result(s), and as a result, I will discharge patient. Counseling: I had a detailed discussion with the patient and/or guardian regarding: the historical points, exam findings, and any diagnostic results supporting the discharge/admit diagnosis, lab results, the need for outpatient follow up, to return to the emergency department if symptoms worsen or persist or if there are any questions or concerns that arise at home. Response to treatment: the patient's symptoms have mildly improved after treatment, and as a result, I will discharge patient. Special discussion: I discussed with the patient/guardian in detail that at this point there is no indication for admission to the hospital. It is understood, however, that if the symptoms persist or worsen the patient needs to return immediately for re-evaluation. 04/15 19:06 Order name: Glucose, Ancillary Testing; Complete Time: 19:07 EDMS 04/15 19:31 Order name: BMP; Complete Time: 20:35 rn 04/15 19:31 Order name: IV Start; Complete Time: 20:01 rn 04/15 19:31 Order name: Glucose Level; Complete Time: 20:02 rn 04/15 20:04 Order name: Glucose, Ancillary Testing; Complete Time: 20:35 EDMS Administered Medications: Discontinued: NS 0.9% 1000 ml IV at 1000 ml once 19:45 Drug: NS 0.9% 1000 ml Route: IV; Rate: 1000 ml; Site: left antecubital; ch2 Disposition: 04/15/19 20:35 Discharged to Home. Impression: Hyperglycemia, unspecified. - Condition is Stable. - Discharge Instructions: Hyperglycemia, Blood Glucose Monitoring, Adult. - Medication Reconciliation Form, Thank You Letter, Antibiotic Education, Prescription Opioid Use form. - Follow up: Private Physician; When: As needed; Reason: Recheck today's complaints, Re-evaluation by your physician. - Problem is new. - Symptoms have improved. Signatures: Dispatcher [employer] EDPA Keon Zapata MD MD rn Hanna, Leelee RN RN ch2 Gustavo Llamas RN RN rv Corrections: (The following items were deleted from the chart) 21:22 20:35 04/15/2019 20:35 Discharged to Home. Impression: Hyperglycemia, unspecified. ch2 Condition is Stable. Forms are Medication Reconciliation Form, Thank You Letter, Antibiotic Education, Prescription Opioid Use. Follow up: Private Physician; When: As needed; Reason: Recheck today's complaints, Re-evaluation by your physician. Problem is new. Symptoms have improved. rn
--- NOTE | 2019-04-15 20:36 | ER ---
Nurse's Notes [facility] Name: Melonie Boyd Age: 58 yrs Sex: Female : 1960 Arrival Date: 04/15/2019 Time: 17:52 Bed 28 Private MD: Bello Love V Diagnosis: Hyperglycemia, unspecified Presentation: 04/15 18:46 Presenting complaint: Patient states: I started taking insulin Tuesday and hold on to rv my Glimiperide just in case my sugar is high. I took it yesterday and still my sugar is high. complains of weakness and eyes are blurry, shaking and sweating. Transition of care: patient was not received from another setting of care. Onset of symptoms was April 14, 2019 at 08:00. Risk Assessment: Do you want to hurt yourself or someone else? Patient reports no desire to harm self or others. Initial Sepsis Screen: Does the patient meet any 2 criteria? No. Patient's initial sepsis screen is negative. Does the patient have a suspected source of infection? No. Patient's initial sepsis screen is negative. Care prior to arrival: None. 18:46 Method Of Arrival: Ambulatory rv 18:46 Acuity: ABRAHAM 3 rv Historical: - Allergies: 18:51 all abx except doxycycline; rv 18:51 Codeine; rv - PMHx: 18:51 Diabetes - NIDDM; Atrial Fib; Kidney stones; rv - PSHx: 18:51 None; rv - Immunization history:: Adult Immunizations up to date. - Coronavirus screen:: The patient has NOT traveled to [place], [place], or [place] in the past 14 days. Proceed with normal triage process as indicated. The patient has NOT had contact with known/suspected case of Coronavirus? Proceed with normal triage procedures. - Social history:: Smoking status: Patient reports the use of cigarette tobacco products, smokes one pack cigarettes per day. - Family history:: not pertinent. - Ebola Screening: : No symptoms or risks identified at this time. - Hospitalizations: : No recent hospitalization is reported. Screenin:30 Abuse screen: Denies threats or abuse. Denies injuries from another. ch2 20:30 Nutritional screening: No deficits noted. On diabetic diet. Tuberculosis screening: No ch2 symptoms or risk factors identified. Never had TB. Possible symptoms: None Risk factors: None. Fall Risk None identified. No fall in past 12 months (0 pts). No secondary diagnosis (0 pts). IV access (20 points). Ambulatory Aid- None/Bed Rest/Nurse Assist (0 pts). Gait- Normal/Bed Rest/Wheelchair (0 pts) Mental Status- Oriented to own ability (0 pts). Total Mayer Fall Scale indicates No Risk (0-24 pts). Assessment: 19:45 General: Appears in no apparent distress. comfortable, well groomed, well developed, ch2 well nourished, Behavior is calm, cooperative, appropriate for age. 19:45 General: Reports chills for. Pain: Denies pain. Neuro: No deficits noted. Level of ch2 Consciousness is awake, alert, obeys commands, Oriented to person, place, time, situation, Appropriate for age Reports blurred vision dizziness, fatigue prior to arriving at ER, has now resolved. Denies difficulty swallowing, numbness headache. Neuro: Reports. Neuro: Reports. Cardiovascular: No deficits noted. Capillary refill < 3 seconds in bilateral fingers Clubbing of nail beds is absent Patient's skin is warm and dry. Cardiovascular: Respiratory: No deficits noted. Airway is patent Respiratory effort is even, unlabored, Respiratory pattern is regular, symmetrical. GI: No deficits noted. No signs and/or symptoms were reported involving the gastrointestinal system. Abdomen is flat. : No deficits noted. No signs and/or symptoms were reported regarding the genitourinary system. EENT: No deficits noted. No signs and/or symptoms were reported regarding the EENT system. Derm:. Musculoskeletal: No deficits noted. No signs and/or symptoms reported regarding the musculoskeletal system. Range of motion: intact in all extremities. 20:15 Reassessment: Patient appears in no apparent distress at this time. No changes from [facility] previously documented assessment. Patient and/or family updated on plan of care and expected duration. Pain level reassessed. Patient is alert, oriented x 3, equal unlabored respirations, skin warm/dry/pink. Patient denies pain at this time. Patient states feeling better. Patient states symptoms have improved. 20:15 General: Appears in no apparent distress. comfortable, Behavior is calm, cooperative. [facility] Vital Signs: 18:48 BP 140 / 73; Pulse 76; Resp 17; Temp 98.2; Pulse Ox 100% ; Weight 61.23 kg; rv 21:00 BP 131 / 61; Pulse 65; Resp 14; Temp 98.6; Pulse Ox 98% on R/A; Pain 0/10; ch2 ED Course: 17:52 Patient arrived in ED. as 17:52 Bello Love MD is Private Physician. as 18:48 Triage completed. rv 19:06 Keon Zapata MD is Attending Physician. rn 19:58 Arm band placed on right wrist. ch2 19:59 Patient has correct armband on for positive identification. Bed in low position. Call [facility] light in reach. Noise minimized. Warm blanket given. Pillow given. Head of bed elevated. 19:59 Initial lab(s) drawn, by me, sent to lab. Inserted saline lock: 22 gauge in left ch2 antecubital area, using aseptic technique. 20:45 Assisted to bathroom. ch2 21:19 No provider procedures requiring assistance completed. IV discontinued, intact, ch2 bleeding controlled, No redness/swelling at site. Pressure dressing applied. Administered Medications: Discontinued: NS 0.9% 1000 ml IV at 1000 ml once 19:45 Drug: NS 0.9% 1000 ml Route: IV; Rate: 1000 ml; Site: left antecubital; ch2 Outcome: 20:35 Discharge ordered by MD. rn 21:19 Discharged to home ambulatory. ch2 21:19 Condition: improved 21:19 Discharge instructions given to patient, Instructed on discharge instructions, follow up and referral plans. safety practices, Demonstrated understanding of instructions, follow-up care, medications. 21:22 Patient left the ED. ch2 Signatures: Zoila Ruvalcaba as Keon Zapata MD MD rn Hanna, Candace RN OTONIEL ch2 Gustavo Llamas, RN RN rv Corrections: (The following items were deleted from the chart) 21:15 19:45 General: Appears in no apparent distress. comfortable, well groomed, well ch2 developed, well nourished, Behavior is calm, cooperative, appropriate for age, Smells of ch2 21:21 21:00 BP 131 / 61; Pulse 65bpm; Resp 14bpm; Pulse Ox 98% RA; ch2 ch2
[2019-04-15 21:29] VITALS: BP 131/61; TEMP 98.6; O2SAT 98
== END 2019-04-15 21:22 | disposition home or self-care (01) ==
LOC: ER 17:50
DX: E11.65 Type 2 diabetes mellitus with hyperglycemia (principal); Z88.6 Allergy status to analgesic agent
CPT/HCPCS: 80048; 36415; 82947 ×2; 99284; J7030

== ENCOUNTER 2021-01-19 07:16 | Day surgery (SDC) | payer OTHER ==
[2021-01-19] MEDS ORDERED: NA CHLORIDE 0.9% 1,000 ML ONE (08:40)
[2021-01-19 09:15] VITALS: TEMP 97.1; O2SAT 97
--- NOTE | 2021-01-19 10:04 | ENDO RPT ---
[address], [address] COLONOSCOPY PROCEDURE REPORT EXAM DATE: 01/19/2021 PATIENT NAME: Melonie Boyd MR #: [id number] BIRTHDATE: 1960 ATTENDING: Ruy Ruvalcaba MD STATUS: outpatient [employer] OPERATOR: Danielle Hastings RN and Karen Poe CST INDICATIONS: The patient is a 60 yr old Female here for a colonoscopy due to personal history of colon polyps and colon cancer screening PROCEDURE PERFORMED: Colonoscopy with biopsy - cold polypectomy MEDICATIONS: Per Anesthesia. ESTIMATED BLOOD LOSS: None CONSENT: The patient understands the risks and benefits of the procedure and understands that these risks include, but are not limited to: sedation, allergic reaction, infection, perforation and/or bleeding. Alternative means of evaluation and treatment include, among others: physical exam, x-rays, and/or surgical intervention. The patient elects to proceed with this endoscopic procedure. DESCRIPTION OF PROCEDURE: During intra-op preparation period all mechanical medical equipment was checked for proper function. Hand hygiene and appropriate measures for infection prevention was taken. Procedure, possible complications, alternatives including, but not limited to possibility of bleeding, perforation, tear, infection, sepsis, need for surgery, need for blood transfusion, were explained to the patient. After the risks, benefits and alternatives of the procedure were thoroughly explained, Informed consent was verified, confirmed and timeout was successfully executed by the treatment team. The patient was placed in the left lateral position. A digital rectal exam was performed and revealed external hemorrhoids. After appropriate level of anesthesia, the scope was passed. The EC-[id number] ([id number]) endoscope was introduced through the anus and advanced to the cecum, which was identified by transillumination from the light source, the appendix, and the ileocecal valve. The quality of the prep was good. The instrument was then slowly withdrawn as the colon was fully examined. Scope withdrawal time was . COLON FINDINGS: Moderate sized internal and external hemorrhoids were found. Two sessile polyps measuring 3 mm in size were found in the rectum. A polypectomy was performed using hot forceps. The resection was complete, the polyp tissue was completely retrieved and sent to histology. Retroflexed views revealed no abnormalities. The scope was then completely withdrawn from the patient and the procedure terminated. ADVERSE EVENTS: There were no complications. IMPRESSIONS: 1. Moderate sized internal and external hemorrhoids 2. Two sessile polyps were found in the rectum; polypectomy was performed using hot forceps RECOMMENDATIONS: 1. follow-up: office 1 week(s) 2. await biopsy results RECALL: for Colonoscopy, pending biopsy results. Ruy Ruvalcaba MD eSigned: Ruy Ruvalcaba MD 01/19/2021 10:03 AM cc: Bello Love M.D. CPT CODES: ICD9 CODES: PATIENT NAME: Melonie Boyd MR#: [id number]
[2021-01-19] MEDS ORDERED: propofoL 200 MG/20 ML VIAL IV ONE (10:29)
[2021-01-19 12:37] VITALS: BP 120/62
== END 2021-01-19 10:30 | disposition home or self-care (01) ==
LOC: OR 07:16
PROVIDERS: ATTEND Surgery
PROC: 0DBP8ZX Excision of Rectum, Via Natural or Artificial Opening Endoscopic, Diagnostic (ICD-10-PCS; principal; 2021-01-19 08:30)
DX: R19.5 Other fecal abnormalities (principal); I10 Essential (primary) hypertension; E11.9 Type 2 diabetes mellitus without complications; Z88.0 Allergy status to penicillin; Z88.6 Allergy status to analgesic agent; Z88.1 Allergy status to other antibiotic agents; Z20.822 Contact with and (suspected) exposure to COVID-19; K63.5 Polyp of colon; K64.4 Residual hemorrhoidal skin tags; K64.8 Other hemorrhoids
CPT/HCPCS: 36415; 80162; 82947; 88305; 45380; U0003; J2704; J7030

== ENCOUNTER 2021-09-23 09:24 | Inpatient (IN) | payer OTHER, SELFPAY ==
--- NOTE | 2021-09-23 10:21 | RAD REPORT ---
EXAM DESCRIPTION: Daisy Single View09/23/2021 10:04 am CLINICAL HISTORY: Chest pain COMPARISON: 2019 FINDINGS: Medial right base is mildly hazy The remainder of the lungs appear clear of acute infiltrate. The heart is normal size IMPRESSION: Medial right base is mildly hazy which may indicate a mild pneumonia
[2021-09-23 10:37] LABS: Absolute Lymphocytes (CBC) 2.7 K/uL (0.7-4.9); Hematocrit 41.4 % (36.0-45.0); Lymphocytes % 23.9 % (15.3-44.8); MCV 87.7 fL (80-100); RBC Red Blood Cell Count 4.72 M/uL (3.86-4.86)
--- NOTE | 2021-09-23 11:57 | EDPHYS ---
Physician Documentation [facility] Name: Melonie Boyd Age: 60 yrs Sex: Female : 1960 Arrival Date: 09/23/2021 Time: 09:27 Bed 14 Private MD: ED Physician Erich Salvador HPI: 09/23 09:53 This 60 yrs old Female presents to ER via Ambulatory with complaints of Abnormal EKG. kdr 09:53 Patient has had intermittent chest pain for the past 2 weeks. She states that when her kdr pain is more intense, she has discomfort in her arms exteriorly just above her elbows. She has not been evaluated for this before. She was just sent from Dr. Balderrama's office where she had an episode of discomfort. At that time they were able to do an EKG and noted that she had diffuse ST depression laterally and inferiorly. Dr. Balderrama subsequently sent the patient to the ED for evaluation and admission. Onset: The symptoms/episode began/occurred 2 week(s) ago. Historical: - Allergies: 09:51 all abx except doxycycline; ss 09:51 Codeine; ss - Home Meds: 11:25 metformin 1,000 mg Oral tr24 1 tab once daily [Active]; jg9 14:09 digoxin 250 mcg Oral tab 1 tab once daily [Active]; digoxin 1.25 Oral tab 1 tab once jg9 daily [Active]; losartan 100-25mg Oral tab 1 tab once daily [Active]; Zetia 10 mg Oral tab 1 tab once daily [Active]; - PMHx: 09:51 Atrial Fib; Diabetes - NIDDM; Kidney stones; ss - Immunization history:: Adult Immunizations up to date. - Social history:: Smoking status: Patient reports the use of cigarette tobacco products, smokes two packs cigarettes per day. ROS: 09:53 Constitutional: Negative for fever, chills, and weight loss, Eyes: Negative for injury, kdr pain, redness, and discharge, ENT: Negative for injury, pain, and discharge, Neck: Negative for injury, pain, and swelling, Respiratory: Negative for shortness of breath, cough, wheezing, and pleuritic chest pain, Abdomen/GI: Negative for abdominal pain, nausea, vomiting, diarrhea, and constipation, Back: Negative for injury and pain, : Negative for injury, bleeding, discharge, and swelling, MS/Extremity: Negative for injury and deformity, Skin: Negative for injury, rash, and discoloration, Neuro: Negative for headache, weakness, numbness, tingling, and seizure activity. Psych: Negative for depression, anxiety, suicide ideation, homicidal ideation, and hallucinations, Allergy/Immunology: Negative for hives, rash, and allergies, Endocrine: Negative for neck swelling, polydipsia, polyuria, polyphagia, and marked weight changes, Hematologic/Lymphatic: Negative for swollen nodes, abnormal bleeding, and unusual bruising. 09:53 Cardiovascular: Positive for chest pain, Negative for edema, orthopnea, palpitations, paroxysmal nocturnal dyspnea. Exam: 09:53 Constitutional: This is a well developed, well nourished patient who is awake, alert, kdr and in no acute distress. Head/Face: Normocephalic, atraumatic. Eyes: Pupils equal round and reactive to light, extra-ocular motions intact. Lids and lashes normal. Conjunctiva and sclera are non-icteric and not injected. Cornea within normal limits. Periorbital areas with no swelling, redness, or edema. Neck: Trachea midline, no thyromegaly or masses palpated, and no cervical lymphadenopathy. Supple, full range of motion without nuchal rigidity, or vertebral point tenderness. No Meningismus. Chest/axilla: Normal chest wall appearance and motion. Nontender with no deformity. No lesions are appreciated. Cardiovascular: Regular rate and rhythm with a normal S1 and S2. No gallops, murmurs, or rubs. Normal PMI, no JVD. No pulse deficits. Respiratory: Lungs have equal breath sounds bilaterally, clear to auscultation and percussion. No rales, rhonchi or wheezes noted. No increased work of breathing, no retractions or nasal flaring. Abdomen/GI: Soft, non-tender, with normal bowel sounds. No distension or tympany. No guarding or rebound. No evidence of tenderness throughout. Back: No spinal tenderness. No costovertebral tenderness. Full range of motion. Skin: Warm, dry with normal turgor. Normal color with no rashes, no lesions, and no evidence of cellulitis. MS/ Extremity: Pulses equal, no cyanosis. Neurovascular intact. Full, normal range of motion. Neuro: Awake and alert, GCS 15, oriented to person, place, time, and situation. Cranial nerves II-XII grossly intact. Motor strength 5/5 in all extremities. Sensory grossly intact. Cerebellar exam normal. Normal gait. Psych: Awake, alert, with orientation to person, place and time. Behavior, mood, and affect are within normal limits. Vital Signs: 09:48 BP 161 / 86; Pulse 89; Resp 16; Temp 98.2(TE); Pulse Ox 98% on R/A; Weight 71.67 kg; ss Height 5 ft. 9 in. (175.26 cm); Pain 0/10; 11:00 BP 125 / 60; Pulse 80; Resp 20 S; Pulse Ox 97% ; jg9 11:30 BP 145 / 66; Pulse 89; Resp 17 S; Pulse Ox 97% on R/A; jg9 12:30 BP 119 / 59; Pulse 85; Resp 17 S; Pulse Ox 96% on R/A; jg9 13:30 BP 124 / 62; Pulse 82; Resp 16 S; Pulse Ox 97% on R/A; jg9 14:15 BP 126 / 63; Pulse 76; Resp 16 S; Pulse Ox 96% on R/A; jg9 09:48 Body Mass Index 23.33 (71.67 kg, 175.26 cm) ss MDM: 09:53 Data reviewed: vital signs, nurses notes, lab test result(s), EKG, radiologic studies. kdr Counseling: I had a detailed discussion with the patient and/or guardian regarding: the historical points, exam findings, and any diagnostic results supporting the discharge/admit diagnosis, lab results, radiology results. 11:56 Patient medically screened. kdr 09/23 09:47 Order name: Basic Metabolic Panel; Complete Time: 15:23 kdr 09/23 09:47 Order name: CBC with Diff; Complete Time: 11:53 kdr 09/23 09:47 Order name: NT PRO-BNP; Complete Time: 15:23 kdr 09/23 09:47 Order name: Troponin HS; Complete Time: 15:23 kdr 09/23 12:07 Order name: Basic Metabolic Panel EDMS 09/23 12:07 Order name: Basic Metabolic Panel EDMS 09/23 09:47 Order name: XRAY Chest (1 view); Complete Time: 11:53 kdr 09/23 09:47 Order name: EKG; Complete Time: 09:47 kdr 09/23 12:07 Order name: CBC with Automated Diff EDMS 09/23 12:07 Order name: CBC with Automated Diff EDMS 09/23 12:10 Order name: SARS-COV-2 RT PCR (Document "Date of Onset" if Symptomatic); Complete Time: em1 15:23 09/23 12:20 Order name: Ptt, Activated; Complete Time: 15:23 j9 09/23 12:21 Order name: PT-INR; Complete Time: 15:23 9 09/23 09:47 Order name: Cardiac monitoring; Complete Time: 11:04 kdr 09/23 09:47 Order name: IV Saline Lock; Complete Time: 11:04 kdr 09/23 09:47 Order name: Labs collected and sent; Complete Time: 11:04 kdr 09/23 12:07 Order name: CONS Physician Consult EDMS 09/23 12:07 Order name: EKG Electrocardiogram EDMS 09/23 12:07 Order name: EKG Electrocardiogram EDMS 09/23 12:07 Order name: EKG Electrocardiogram EDMS 09/23 12:07 Order name: EKG Electrocardiogram EDMS Administered Medications: 13:35 Drug: Heparin ([place] Drip) 12 units/kg/hr - (HEParin 39846 units, D5W 500 ml) jg9 {Co-Signature: ll1 (Aditya Lacy RN).} Route: IV; Rate: calculated rate; Site: right antecubital; Disposition Summary: 09/23/21 11:56 Hospitalization Ordered Hospitalization Status: Inpatient Admission kdr Provider: Bello Love Location: Telemetry/MedSurg (Inpatient) kdr Condition: Fair kdr Problem: new kdr Symptoms: have improved kdr Bed/Room Type: Standard kdr Room Assignment: 206(09/23/21 16:00) ss Diagnosis - Chest pain, unspecified kdr Forms: - Medication Reconciliation Form kdr - SBAR form kdr Signatures: Dispatcher [employer] EDMS Erich Salvador MD MD kdr Shahnaz Muniz RN RN ss Kylah Brown RN RN jg9 Aditya Lacy RN ll1 Corrections: (The following items were deleted from the chart) 11:04 09:47 EKG - Nurse/Tech ordered. kdr jg9 14:16 11:25 Home Meds: digoxin 250 mcg Oral tab 1 tab once daily; jg9 jg9 14:16 11:25 Home Meds: digoxin 125 mcg Oral tab 1 tab once daily; jg9 jg9 14:16 11:25 Home Meds: Farxiga 5 mg Oral tab 1 tab once daily; jg9 jg9 14:16 11:25 Home Meds: glimepiride 4 mg Oral tab 1 tab once daily; jg9 jg9 14:16 11:25 Home Meds: losartan 25 mg Oral tab 1 tab once daily; jg9 jg9 14:16 11:25 Home Meds: Victoza 2-Maury 0.6 mg/0.1 mL (18 mg/3 mL) subcutaneous pnij 0.2 mL once jg9 daily; jg9 16:00 11:56 kdr ss
--- NOTE | 2021-09-23 11:57 | ER ---
Nurse's Notes [facility] Name: Melonie Boyd Age: 60 yrs Sex: Female : 1960 Arrival Date: 09/23/2021 Time: 09:27 Bed 14 Private MD: Diagnosis: Chest pain, unspecified Presentation: 09/23 09:48 Chief complaint: Patient states: sent by Dr. Balderrama for evaluation of abnormal EKG. PT ss reports that she has been having episodic chest discomfort for two weeks which seems to be worsening. Coronavirus screen: Client denies travel out of the [place] in the last 14 days. Ebola Screen: Patient denies exposure to infectious person. Patient denies travel to an Ebola-affected area in the 21 days before illness onset. Initial Sepsis Screen: Does the patient meet any 2 criteria? No. Patient's initial sepsis screen is negative. Does the patient have a suspected source of infection? No. Patient's initial sepsis screen is negative. Risk Assessment: Do you want to hurt yourself or someone else? Patient reports no desire to harm self or others. Onset of symptoms was August 2021. 09:48 Method Of Arrival: Ambulatory ss 09:48 Acuity: ABRAHAM 3 ss Triage Assessment: 11:00 General: Appears in no apparent distress. Behavior is calm, cooperative. jg9 Historical: - Allergies: 09:51 all abx except doxycycline; ss 09:51 Codeine; ss - Home Meds: 11:25 metformin 1,000 mg Oral tr24 1 tab once daily [Active]; jg9 14:09 digoxin 250 mcg Oral tab 1 tab once daily [Active]; digoxin 1.25 Oral tab 1 tab once jg9 daily [Active]; losartan 100-25mg Oral tab 1 tab once daily [Active]; Zetia 10 mg Oral tab 1 tab once daily [Active]; - PMHx: 09:51 Atrial Fib; Diabetes - NIDDM; Kidney stones; ss - Immunization history:: Adult Immunizations up to date. - Social history:: Smoking status: Patient reports the use of cigarette tobacco products, smokes two packs cigarettes per day. Screenin:53 Abuse screen: Denies threats or abuse. Denies injuries from another. Nutritional ss screening: No deficits noted. Tuberculosis screening: Never had TB. 11:00 Fall Risk None identified. jg9 Assessment: 09:52 Reassessment: Pt refuses EKG in ED. States she does not have insurance and does not ss want to be charged for an additional EKG when she just had one completed in Dr. Balderrama's office this AM. 11:24 Reassessment: No changes from previously documented assessment. Patient and/or family jg9 updated on plan of care and expected duration. Pain level reassessed. Patient is alert, oriented x 3, equal unlabored respirations, skin warm/dry/pink. Pain: Denies pain. 12:53 Reassessment: No changes from previously documented assessment. Patient and/or family jg9 updated on plan of care and expected duration. Pain level reassessed. Patient is alert, oriented x 3, equal unlabored respirations, skin warm/dry/pink. 13:48 Reassessment: Patient and/or family updated on plan of care and expected duration. Pain jg9 level reassessed. Patient is alert, oriented x 3, equal unlabored respirations, skin warm/dry/pink. Vital Signs: 09:48 BP 161 / 86; Pulse 89; Resp 16; Temp 98.2(TE); Pulse Ox 98% on R/A; Weight 71.67 kg; Height 5 ft. 9 in. (175.26 cm); Pain 0/10; 11:00 BP 125 / 60; Pulse 80; Resp 20 S; Pulse Ox 97% ; jg9 11:30 BP 145 / 66; Pulse 89; Resp 17 S; Pulse Ox 97% on R/A; jg9 12:30 BP 119 / 59; Pulse 85; Resp 17 S; Pulse Ox 96% on R/A; jg9 13:30 BP 124 / 62; Pulse 82; Resp 16 S; Pulse Ox 97% on R/A; jg9 14:15 BP 126 / 63; Pulse 76; Resp 16 S; Pulse Ox 96% on R/A; jg9 09:48 Body Mass Index 23.33 (71.67 kg, 175.26 cm) ED Course: 09:27 Patient arrived in ED. rg4 09:30 Erich Salvador MD is Attending Physician. kdr 09:33 Kylah Brown RN is Primary Nurse. jg9 09:45 Inserted saline lock: 22 gauge in right antecubital area, using aseptic technique. jg9 Blood collected. 09:51 Triage completed. ss 09:51 Arm band placed on right wrist. ss 10:06 XRAY Chest (1 view) In Process Unspecified. EDMS 11:07 Patient has correct armband on for positive identification. Bed in low position. Call jg9 light in reach. Side rails up X 1. 11:49 No apparent distress. Resting quietly. jg9 11:54 Bello Love MD is Hospitalizing Provider. kdr 12:00 Patient requests food. patient is diabetic and reports she is having food brought in jg9 for her to eat. 12:15 Notified ED physician of a critical lab result(s). troponin is 1,141.9. jg9 12:53 No apparent distress. Resting quietly. Awaiting bed assignment. jg9 13:49 No apparent distress. Resting quietly. jg9 16:58 No provider procedures requiring assistance completed. jg9 17:00 Patient admitted, IV remains in place. jg9 Administered Medications: 13:35 Drug: Heparin ([place] Drip) 12 units/kg/hr - (HEParin 05057 units, D5W 500 ml) jg9 {Co-Signature: ll1 (Aditya Lacy RN).} Route: IV; Rate: calculated rate; Site: right antecubital; Medication: 17:00 VIS not applicable for this client. jg9 Outcome: 11:56 Decision to Hospitalize by Provider. kdr 16:58 Admitted to Med/surg accompanied by nurse, via wheelchair, room 206, with chart, Report jg9 called to nurse 17:00 Condition: stable jg9 17:00 Patient left the ED. jg9 Signatures: Dispatcher [employer] EDMD Erich Salvador MD MD kdr Smirch, Shelby, RN RN Sandra Levy4 Kylah Brown RN RN jg9 Aditya Lacy RN ll1 Corrections: (The following items were deleted from the chart) 14:16 11:25 Home Meds: digoxin 250 mcg Oral tab 1 tab once daily; jg9 jg9 14:16 11:25 Home Meds: digoxin 125 mcg Oral tab 1 tab once daily; jg9 jg9 14:16 11:25 Home Meds: Farxiga 5 mg Oral tab 1 tab once daily; jg9 jg9 14:16 11:25 Home Meds: glimepiride 4 mg Oral tab 1 tab once daily; jg9 jg9 14:16 11:25 Home Meds: losartan 25 mg Oral tab 1 tab once daily; jg9 jg9 14:16 11:25 Home Meds: Victoza 2-Maury 0.6 mg/0.1 mL (18 mg/3 mL) subcutaneous pnij 0.2 mL once jg9 daily; jg9
[2021-09-23] MEDS ORDERED: ONDANSETRON 4 MG/2 ML VIAL IV PRN (12:02)
[2021-09-23] MEDS ORDERED: ACETAMINOPHEN 500 MG TAB PO PRN (12:02)
[2021-09-23 12:09] LABS: Potassium 3.6 mmol/L (3.5-5.1); Troponin High Sensitivity 1141.9 pg/mL (<58.9)
[2021-09-23 12:53] LABS: Protime INR 0.99
[2021-09-23] MEDS ORDERED: HEPARIN/D5W 25,000 UNIT/500 ML BAG IV SCH (13:00)
[2021-09-23] MEDS ORDERED: HEPARIN/D5W 25,000 UNIT/500 ML BAG IV ONE (13:08)
[2021-09-23 16:17] VITALS: BMI 23.3
[2021-09-23] MEDS ORDERED: LORazepam 2 MG/ML VIAL IV PRN (18:22)
[2021-09-24 04:18] LABS: Absolute Lymphocytes (CBC) 3.5 K/uL (0.7-4.9); Hematocrit 39.1 % (36.0-45.0); Lymphocytes % 41.9 % (15.3-44.8); MCV 88.8 fL (80-100); MPV 8.1 fL (7.6-11.3)
[2021-09-24 04:32] LABS: Potassium 3.8 mmol/L (3.5-5.1)
[2021-09-24] MEDS ORDERED: GLUCAGON 1 MG/VIAL IV PRN (05:01)
[2021-09-24] MEDS ORDERED: D50W 25 GM/50 ML SYRINGE IV PRN (05:01)
[2021-09-24] MEDS ORDERED: D10W 125 ML IV PRN (05:05)
[2021-09-24] MEDS ORDERED: INSULIN LISPRO SQ SCH (06:30)
--- NOTE | 2021-09-24 06:35 | P.HP ---
Certification for Inpatient Patient admitted to: Inpatient With expected LOS: >2 Midnights Practitioner: I am a practitioner with admitting privileges, knowledge of patient current condition, hospital course, and medical plan of care. Services: Services provided to patient in accordance with Admission requirements found in Title 42 Section 412.3 of the Code of Federal Regulations Patient History Date of Service: 09/23/21 Reason for admission: CHEST PAIN History of Present Illness: JOSE G IS A DIABETIC SMOKER WHO HAS BEEN ADVISED TO QUIT SMOKING FOR MORE THAN15 YEARS BUT KEPT ON SMOKING COMES WITH CHEST PAIN ON EXERSION TO OFFICE. EKG WAS UNCHANGED WITH ST DEPRESSION INFERIOR LEADS. I CALLED DR. ESPAÑA TO GET HER SEEN [facility]. HE ADMITTED HER FOR HEPARIN DRIP AND CATH. I SAW HER ON 6TH PM. 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 Allergies ampicillin Allergy (Verified 09/23/21 14:50) Itching cephalexin [From Keflex] Allergy (Verified 09/23/21 14:50) Itching codeine Allergy (Verified 09/23/21 14:50) Itching Penicillins Allergy (Verified 09/23/21 14:50) Itching adhesive tape Adverse Reaction (Verified 09/23/21 14:50) skin irritation Home Medications: Digoxin [Lanoxin*] 125 mcg PO [id number] 08/06/17 Digoxin [Lanoxin*] 250 mcg PO [id number] 08/06/17 Metformin HCl 1,000 mg PO BID 08/06/17 Cranberry Conc/Ascorbic Acid [Cranberry Plus Vitamin C Sftgl] 1 each PO DAILY 08/30/17 Cyanocobalamin [Vitamin B-12] 1,000 mcg PO DAILY 08/30/17 Docosahexanoic AC/Epa [Fish Oil 1,000 MG CAP] 1,000 mg PO BEDTIME 08/30/17 Glucosamine/Chondr Cortez A Sod [Osteo Bi-Flex Caplet] 1 each PO DAILY 08/30/17 Multivit-Min/Iron/Folic/Lutein [Centrum Silver Women Tablet] 1 each PO DAILY 08/30/17 Turmeric Root Extract [Turmeric] 1,000 mg PO DAILY 08/30/17 Aspirin [Adult Aspirin Regimen] 81 mg PO DAILY 01/16/21 Ezetimibe [Zetia*] 10 mg PO DAILY 01/16/21 Insulin Lispro [Humalog] 1 units SQ SEECOM 01/16/21 Losartan/Hydrochlorothiazide [Losartan-Hctz 100-25 mg Tab] 1 tab PO DAILY 01/16/21 Peppermint Oil [Ibgard] 90 gm PO DAILY 01/16/21 Zinc Sulfate [Zinc Sulfate*] 220 mg PO DAILY 09/23/21 - Past Medical/Surgical History Has patient received pneumonia vaccine in the past: No Diabetic: Yes -: Diabetes -: Arrythmia- ON DIGOXIN FOR 20 YEARS FROM PREVIOUS [employer]. -: kidney stones -: NEVER DOCUMENTED TO HAVE A FIB AT MY OFFICE. -: Tendon repair left upper arm - Family History Father -: Lung disease, Cancer Mother -: Heart disease, Hypertension, Diabetes, Other (see notes) Notes: thyroid problems - Social History Smoking Status: Current every day smoker Alcohol use: No CD- Drugs: No Caffeine use: No Place of Residence: Home Review of Systems 10-point ROS is otherwise unremarkable Physical Examination - Vital Signs Temperature: 97.2 F Blood Pressure: 118/58 Pulse: 76 Respirations: 17 Pulse Ox (%): 93 - Physical Exam General: Oriented x3, Mild distress HEENT: Atraumatic, PERRLA, Mucous membr. moist/pink, EOMI, Sclerae nonicteric Neck: Supple, 2+ carotid pulse no bruit, No LAD, Without JVD or thyroid abnormality Respiratory: Clear to auscultation bilaterally, Normal air movement Cardiovascular: Regular rate/rhythm, Normal S1 S2 Gastrointestinal: Normal bowel sounds, No tenderness Musculoskeletal: No tenderness Integumentary: No rashes Neurological: Normal gait, Normal speech, Normal strength at 5/5 x4 extr, Normal tone, Normal affect Lymphatics: No axilla or inguinal lymphadenopathy - Studies Laboratory Data (last 24 hrs) 09/23/21 09:55: WBC 11.2 H, Hgb 13.8, Hct 41.4, Plt Count 261 09/23/21 09:55: Sodium 136, Potassium 3.6, BUN 16, Creatinine 0.72, Glucose 151 H Assessment and Plan - Problems (Diagnosis) (1) Coronary artery disease due to type 2 diabetes mellitus Current Visit: Yes Status: Acute Plan: SHE WILL GET CATH IN AM. CONT HEPARIN DRIP. MOST LIKELY WILL HAVE CORONARY DISEASE. (2) HTN (hypertension) Current Visit: Yes Status: Chronic Qualifiers: Hypertension type: primary hypertension Qualified Code(s): I10 - Essential (primary) hypertension (3) Encounter for smoking cessation counseling Current Visit: Yes Status: Chronic Plan: SHE SAYS PATCH [employer] GUM GIVE HER PALPITATIONS. WELLBUTRIN AND CHANTIX DID NOT WORK. SHE WANTED TO GO DOWN TO SMOKE. I ADVISED HER ATIVAN INSTEAD FOR NOW. SHE IS NOW GOING TO QUIT SMOKING. - Advance Directives Does patient have a Living Will: Yes Does patient have a Durable POA for Healthcare: No
[2021-09-24] MEDS: METFORMIN HCL 500 MG TAB PO SCH ×2 (08:00→17:00)
[2021-09-24] MEDS ORDERED: GLUCOSAM/CHONDROI 500mg-400mg PO SCH (09:00)
[2021-09-24] MEDS ORDERED: levoFLOXacin 500 MG TAB PO SCH (09:00)
[2021-09-24] MEDS ORDERED: EZETIMIBE 10 MG TAB PO SCH (09:00)
[2021-09-24] MEDS ORDERED: CYANOCOBALAMIN 1,000 MCG TAB PO SCH (09:00)
[2021-09-24] MEDS ORDERED: ASPIRIN EC 81 MG TAB PO SCH (09:00)
[2021-09-24] MEDS ORDERED: MULTIVITAMIN TAB PO SCH (09:00)
[2021-09-24] MEDS ORDERED: ASPIRIN 81 MG PO SCH (09:00)
[2021-09-24] MEDS ORDERED: LOSARTAN/HCTZ 50-12.5 PO SCH (09:00)
[2021-09-24] MEDS ORDERED: NA CHLORIDE 0.9% 500 ML ONE (09:24)
[2021-09-24] MEDS ORDERED: MIDAZOLAM HCL 2 MG/2 ML INJ ONE ×2 (13:37→14:18)
[2021-09-24] MEDS ORDERED: VERAPAMIL HCL 10 MG/4 ML VIAL IV ONE (13:37)
[2021-09-24] MEDS ORDERED: FENTANYL CITR 100 MCG/2 ML ONE (13:37)
[2021-09-24] MEDS ORDERED: HEPARIN 5000 UNIT/ML 1 ML VIAL ONE (13:37)
[2021-09-24] MEDS ORDERED: HEPA 1000U/500MLS 2,000 UNIT/1,000 ML BAG IV ONE (13:37)
[2021-09-24] MEDS ORDERED: NITROGLYCERIN 100 MCG/ML SYR (for cath lab use only) IV ONE (13:38)
[2021-09-24] MEDS ORDERED: ATROPINE SULF 1 MG/10 ML SYR IV ONE (13:38)
[2021-09-24] MEDS ORDERED: HEPARIN 10,000 UNIT/10 ML VIAL IV ONE (13:38)
--- NOTE | 2021-09-24 13:50 | EKG ---
Test Date: 2021-09-24 Test Time: 07:21:07 Lead Driver: DANUTA MEASUREMENT RESULTS: Intervals: Rate: 71 VT: 176 QRSD: 94 QT: 408 QTc: 443 [place]: P: 78 VT: 176 QRS: 92 T: 128 INTERPRETIVE STATEMENTS: Normal sinus rhythm Rightward axis Nonspecific ST and T wave abnormality Abnormal ECG Compared to ECG 01/02/2019 09:55:11 Right-axis deviation now present ST (T wave) deviation still present Electronically Signed On 09-24-21 13:50:07 CDT by Alberto Lopez
[2021-09-24] MEDS ORDERED: ASPIRIN 325 MG TAB ONE (14:11)
[2021-09-24] MEDS ORDERED: TICAGRELOR 90 MG TABLET PO ONE (14:11)
[2021-09-24] MEDS ORDERED: METOPROLOL TARTRATE 5 MG/5 ML INJ IV ONE (14:20)
[2021-09-24] MEDS ORDERED: TICAGRELOR 90 MG TABLET PO SCH (20:00)
[2021-09-24] MEDS ORDERED: DOCOSAHEXANOIC AC/EPA 1000 MG PO SCH (21:00)
--- NOTE | 2021-09-25 01:05 | OP ---
Date of Procedure: 09/24/2021 Surgeon: SHEMAR OCONNELL Procedures Performed: 1.Selective coronary angiogram. 2.Left heart catheterization. 3.Percutaneous coronary intervention of severe proximal left anterior descending stenosis using a 3. 5 x 28 mm Synergy drug-eluting stent. 4.Percutaneous coronary intervention of severe mid left anterior descending stenosis using a 3.0 x 3 2 mm Synergy drug-eluting stent. Both stents are overlapped together. Indication: Unstable angina. Access: Right radial artery 6-Guyanese, closed with TR band. Complications: None. Bleeding: Less than 10 mL. Total Sedation Time: 55 minutes, used fentanyl and Versed. Description Of Procedure: After risks, benefits, and alternatives were explained, the patient agreed to proceed and signed informed consent. The patient was brought into the cardiac catheterization la boratory, prepped and draped in usual sterile fashion. Then, I accessed right radial artery using pe diatric micropuncture kit and placed 6-Guyanese slender sheath and took 5-Guyanese [place] 4.0 catheter in the aortic root, engaged left main and right coronary artery, took standard views. The catheter was advanced to the LV, measured LVEDP, and pullback did not record any gradient. Then, we gave 180 of B rilinta, 325 mg of aspirin, and full dose of heparin to assure ACT level above 250 and then took an E BU 3.5 guide into aortic root, engaged left main, took a short Runthrough wire into the LAD, passing the area of stenosis. Both lesions were pre-dilated and then we first placed the distal stent 3.0 x 32 mm to cover the mid LAD stenosis and overlapped proximally using 3.5 x 28 mm Synergy drug-eluting stent, post dilating using a 3.5 x 15 mm NC balloon throughout the whole stent except the HS with exc ellent results. Then, I removed the wire and the guide and the sheath and placed TR band with good h emostasis. Findings: 1.Left main: Large and normal. 2.LAD: Proximal 99% and then diffuse 60%, status post successful PCI as above and then the mid sect ion is 80% stenosed in the long segment, status post successful PCI as above. Diagonal branches appe ar free of disease. 3.Left circumflex: Large vessel with mid 20% to 30% and OM1 branch has 30% stenosis proximally. 4.RCA: Dominant vessel with mid 30% to 40% stenosis and luminal irregularity. 5.LVEDP elevated at 22 mmHg. Conclusion: 1.Severe LAD stenosis, status post successful PCI as above. 2.Moderate coronary artery disease elsewhere. Plan: Brilinta, aspirin, and high-dose statin. Follow up in the office in 4 weeks post discharge. SR/MODL Voice ID: [id number] Report ID: [id number]
[2021-09-25] MEDS ORDERED: DIGOXIN 0.125 MG TABLET PO SCH (06:00)
[2021-09-25] MEDS ORDERED: DIGOXIN 0.25 MG TABLET PO SCH (06:00)
[2021-09-25] MEDS ORDERED: NITROGLYCERIN 0.4 MG/TAB SL PRN (07:36)
[2021-09-25] MEDS ORDERED: ACETAMINOPHEN 325 MG TABLET PO PRN (07:36)
[2021-09-25] MEDS ORDERED: NA CHLORIDE 0.9% 1,000 ML IV SCH (08:00)
[2021-09-25 08:48] VITALS: BP 112/55; TEMP 97.6
[2021-09-25 08:59] VITALS: O2SAT 97
[2021-09-25] MEDS ORDERED: ASPIRIN EC 81 MG TAB PO SCH (09:00)
--- NOTE | 2021-09-29 12:58 | CON ---
Date of Consultation: 09/23/2021 Reason For Consultation: Unstable angina. History Of Present Illness: Ms. Boyd is a 60-year-old white woman, who saw me in the office. Has a history of diabetes, kidney stones, atrial fibrillation. She takes digoxin. She takes losartan an d Zetia. Comes into the office with classic unstable angina symptoms with substernal chest pain radi ating to both arms with exertion. She has diaphoresis. She has shortness of breath, nausea, but no vomiting. Sent to the emergency room after I discussed the case with Dr. Love to be admitted for ca theterization. Allergies: SHE IS ALLERGIC TO ALL ANTIBIOTICS EXCEPT FOR DOXYCYCLINE. SHE IS ALLERGIC TO CODEINE. Past Medical History: As stated above. Review of Systems: Negative. Social History: Positive for tobacco. Family History: Positive for heart disease. Medications: As listed earlier. Physical Examination: Vital Signs: Stable. She was afebrile. HEENT: Negative. Neck: Supple with no bruit. Chest: Clear to auscultation and percussion. Cardiac: Revealed a regular rhythm and rate. No murmurs, gallops, or rubs. Abdomen: Benign. Extremities: Revealed no clubbing, cyanosis, or edema. Diagnostic Data: EKG showed normal sinus rhythm, rightward axis, nonspecific changes. Chest x-ray s howed possible pneumonia. Impression And Plan: This is a patient with paroxysmal atrial fibrillation. She is in sinus rhythm. She has diabetes. She has classic unstable angina symptoms with an abnormal EKG and abnormal x-ray . I think it is best to perform a left heart catheterization on her to define her coronary anatomy i n the morning. Meanwhile, leave her on heparin, continue her present regimen at home and continue Ze tia. We will see what her catheterization shows before making further decisions. She understands th e risk and the benefits of the procedure. Case was discussed with her and Dr. Love. CARMEN/JUSTICE Voice ID: [id number] Report ID: [id number]
== END 2021-09-25 11:00 | disposition home or self-care (01) | DRG 247 ==
LOC: ER 09:24 → ERHOLD 12:05 → 2ND 16:47
PROVIDERS: ADMIT Internal Medicine; ATTEND Internal Medicine
PROC: 027035Z Dilation of Coronary Artery, One Artery with Two Drug-eluting Intraluminal Devices, Percutaneous Approach (ICD-10-PCS; principal; 2021-09-24)
PROC: 4A023N7 Measurement of Cardiac Sampling and Pressure, Left Heart, Percutaneous Approach (ICD-10-PCS; 2021-09-24)
DX: I25.110 Atherosclerotic heart disease of native coronary artery with unstable angina pectoris (principal); E11.9 Type 2 diabetes mellitus without complications; I10 Essential (primary) hypertension; I48.91 Unspecified atrial fibrillation; F17.210 Nicotine dependence, cigarettes, uncomplicated; Z79.4 Long term (current) use of insulin; Z87.442 Personal history of urinary calculi; Z20.822 Contact with and (suspected) exposure to COVID-19
CPT/HCPCS: 36415; 71045; 80048; 82947; 83880; 84484; 85025; 85347; 85610; 85730; 92920; 92928; 93005; 93458; 96374; 99285; C1725; C1769; C1893; J1644; J2250; J3010; J7040; Q9967; U0003

== ENCOUNTER → 2023-01-24 | Day surgery (SDC) | payer OTHER, SELFPAY ==
[~2023-01-24] MED LIST: EPINEPHRINE/PF 1 MG/ML AMP ONE; LIDOCAINE 1% MPF 5 ML VIAL ONE; propofoL 200 MG/20 ML VIAL IV ONE
[2023-01-24] MEDS: NA CHLORIDE 0.9% 1,000 ML ONE (07:50)
[2023-01-24 10:17] VITALS: BP 156/88; TEMP 97.8; O2SAT 97
== END ==
LOC: OR 07:00
PROVIDERS: ATTEND Surgery
PROC: 0DJD8ZZ Inspection of Lower Intestinal Tract, Via Natural or Artificial Opening Endoscopic (ICD-10-PCS; principal; 2023-01-24 08:30)
DX: Z12.11 Encounter for screening for malignant neoplasm of colon (principal); Z86.010 Personal history of colon polyps; K64.4 Residual hemorrhoidal skin tags; K64.8 Other hemorrhoids
CPT/HCPCS: J2704; J2001; J7030; G0105; J0171

== ENCOUNTER 2023-06-30 05:58 | Day surgery (SDC) | payer OTHER ==
--- NOTE | 2023-06-28 16:18 | EKG ---
Test Date: 2023-06-27 Test Time: 13:30:41 Automat Watcher: MEASUREMENT RESULTS: Intervals: Rate: 80 MA: 168 QRSD: 84 QT: 358 QTc: 412 [place]: P: 78 MA: 168 QRS: 78 T: 74 INTERPRETIVE STATEMENTS: Normal sinus rhythm Nonspecific ST and T wave abnormality Abnormal ECG Compared to ECG 09/24/2021 07:21:07 Right-axis deviation no longer present ST (T wave) deviation still present Electronically Signed On 06-28-23 16:14:59 CDT by Alberto Lopez
[2023-06-30] MEDS ORDERED: LIDOCAINE HCL/EPINEPHRINE 20 ML MDV ONE (06:29)
[2023-06-30] MEDS ORDERED: NA CHLORIDE 0.9% 100 ML ONE (06:33)
[2023-06-30] MEDS ORDERED: ONDANSETRON 4 MG/2 ML VIAL ONE (06:36)
[2023-06-30] MEDS ORDERED: dexAMETHasone 10 MG/ML VIAL ONE (06:36)
[2023-06-30] MEDS ORDERED: propofoL 200 MG/20 ML VIAL IV ONE (06:36)
[2023-06-30] MEDS: SCOPOLAMINE HYDROBROMIDE PATCH TD ONE (06:36)
[2023-06-30] MEDS ORDERED: KETOROLAC 30 MG/ML INJ ONE (06:36)
[2023-06-30] MEDS ORDERED: FENTANYL CITR 100 MCG/2 ML ONE (06:37)
[2023-06-30] MEDS ORDERED: MIDAZOLAM HCL 2 MG/2 ML INJ ONE (06:37)
[2023-06-30] MEDS ORDERED: LIDOCAINE 2% MPF 5 ML VIAL ONE (06:37)
[2023-06-30] MEDS: NA CHLORIDE 0.9% 1,000 ML ONE (07:10)
[2023-06-30] MEDS: Levofloxacin500mg IV 500 MG/100 ML BAG IV ONE (07:10)
[2023-06-30] MEDS ORDERED: NS 0.9% VIAL 10 ML ONE (07:28)
[2023-06-30] MEDS ORDERED: Phenylephrine HCl 10 MG/ML 1 ML VIAL ONE (07:28)
[2023-06-30] MEDS: CEFAZOLIN SODIUM 1 GM/VIAL ONE (07:42)
[2023-06-30] MEDS: VASOPRESSIN 20 UNIT/ML VIAL ONE (07:50)
[2023-06-30] MEDS ORDERED: HYDROCODONE/APAP 5/325 MG TAB PO PRN (10:10)
--- NOTE | 2023-06-30 10:13 | P.BOP ---
Preoperative diagnosis: KEVIN, UUI, fecal incontinence Postoperative diagnosis: Same Primary procedure: Transobturator mid urethral sling, cystoscopy Ski Lift Attendant: Tasia Whatley Estimated blood loss: 20 Specimen: None Findings: Cystoscopy was negative after the sling Anesthesia: General Complications: None Drain(s): Urinary catheter Implants: TVT O Transferred to: Recovery Room Condition: Good
[2023-06-30 10:47] VITALS: BP 141/62; TEMP 97.3; O2SAT 95
[2023-06-30] MEDS ORDERED: INSULIN REGULAR (HUMAN) 100 UNIT/ML SQ SCH (13:00)
--- NOTE | 2023-06-30 18:24 | OP ---
Date of Procedure: 06/30/2023 Surgeon: Sharon Beth MD Computer Installer: Tasia Low. Preoperative Diagnoses: Stress urinary incontinence, urgency incontinence, fecal incontinence. Postoperative Diagnoses: Stress urinary incontinence, urgency incontinence, fecal incontinence. Procedure Performed: Transobturator midurethral sling (TVT-O) cystoscopy. Estimated Blood Loss: Less than 10. Specimens: No specimens. Complications: No complications. Drains: Archer catheter. Anesthesia: General endotracheal. Findings: Cystoscopy was negative after the sling was placed. Urethra and bladder were visualized f or any perforation with the sling. No trauma or foreign body seen. Indications: The patient is a 62-year-old brittle diabetic presented with mixed urinary incontinence and fecal incontinence. She was evaluated in the office with a cystoscopy, urodynamic testing. Delisa hector complaint is stress urinary incontinence. So she was counseled on Kegel's exercises with biofee dback, then for fecal incontinence treated with a bowel regimen to start and then for urinary inconti nence, she was started on first-line therapies and she is a good candidate for third line with InterS vikas. As the incontinence with stress is interfering with her daily life, we started to discuss about a staged approach to use a sling first for treatment of this. Her midurethral closure pressure was high at 95, but she had a significant Valsalva leak. Although the leak point pressures seemed high, she is very symptomatic and she was consented for a sling. Her PVR was only 25 to 40 mL. She was co nsented and brought to the hospital. Her glycemic control is as optimized as they can be and she has an allergy to penicillin. She was given Levaquin preoperatively. In the preoperative area, she was re-consented and brought to the OR. Procedure In Detail: After she was placed in a supine fashion on the operating table, general anesth esia was given. She was placed in dorsal lithotomy position using Merritt stirrups. Vulva, vagina, an d perineum, and lower abdomen were prepped and draped in the sterile fashion. Archer was placed to dr deborahn the bladder. Speculum placed to expose the midurethral area. The vaginal epithelium was picked up in this area on either sides of the midline with Allis clamps and 10 mL of dilute vasopressin was injected for hydrodissection. Incision made with a 15 blade through the skin and the connective tiss ue down to the plane underlying it. Then pockets were created by introducing scissors and dissecting towards the ipsilateral obturator space hugging the inferior pubic ramus. Once the obturator membra ne was perforated on the right, similar dissection was performed on the left in an ample area underne ath the urethra with good coverage under the urethra was created for the sling. The markings for the exit sites of the sling were made 2 cm lateral to the groin fold and at the leve l of the external meatus on the medial thighs avoiding the adductor longus tendon. Then wing guide w as placed. The spine needle was passed with the plastic dilator, hugging the inferior pubic ramus an d it was exited through the skin avoiding the tendon. The plastic sheath was pulled out. Dilator wa s cut. The sheath and mesh were held with a Emili clamp. First the right side was done and then the left side. The mesh was tensioned in the middle with the help of Metzenbaum scissors, giving it amp le space between the urethra and the sling and accommodating it well in the midurethral area. The sheaths were pulled out. Mesh was cut flush with the skin. Skin closed with Dermabond. Antibio tic solution used for irrigation of the mesh before closure of the incision with a 3-0 Vicryl in a co ntinuous running horizontal mattress fashion. A simple horizontal mattress placed on the top. The F oley was removed and cystoscopy was performed. 30-degree lens, normal saline, 17-Mozambican sheath were used. The urethra was well visualized as well a s the bladder. The trigonal area lateral to it and superior were all visualized. No trauma, sling, any mass. The rest of the bladder was visualized, unremarkable, drained, and Archer replaced. Eamon lockhart was recovered from anesthesia and taken to PACU in a stable condition. She will have a voiding tri al in 2 hours and will be discharged home after that. Resume all diabetic care. She will come back for her 1 week in 6 week postop. All restrictions reviewed. Instructions in the chart. STANTON/JUSTICE Voice ID: [id number] Report ID: [id number]
[2023-06-30] MEDS ORDERED: MELATONIN 3 MG TABLET PO SCH (21:00)
[2023-06-30] MEDS ORDERED: HOME MED 1 EA UNK (Cholecalciferol (Vitamin D3) [Vitamin D3] 1,000 UNIT Capsule) PO SCH (21:00)
[2023-06-30] MEDS ORDERED: UBIQUINOL 100 MG PO SCH (21:00)
[2023-06-30] MEDS ORDERED: HOME MED 1 EA UNK (Calcium Carbonate [Calcium] 600 MG Tablet) PO SCH (21:00)
[2023-06-30] MEDS ORDERED: PEPPERMINT OIL PO SCH (21:00)
[2023-06-30] MEDS ORDERED: HOME MED 1 EA UNK (Potassium Gluconate [Potassium] 99 MG Tablet) PO SCH (21:00)
[2023-06-30] MEDS ORDERED: DOCOSAHEXANOIC AC/EPA 1000 MG PO SCH (21:00)
[2023-06-30] MEDS ORDERED: ATORVASTATIN 40 MG TAB PO SCH (21:00)
[2023-06-30] MEDS ORDERED: HOME MED 1 EA UNK (Glucosamine/Chondr Su A Sod [Osteo Bi-Flex Caplet] Tablet) PO SCH (21:00)
[2023-06-30] MEDS ORDERED: HOME MED 1 EA UNK (Multivit-Min/Iron/Folic/Lutein [Centrum Silver Women Tablet] Tablet) PO SCH (21:00)
[2023-06-30] MEDS ORDERED: [UNRECOGNIZED DRUG - OTHER] PO SCH (21:00)
[2023-06-30] MEDS ORDERED: PHOSPHATIDYL SERINE PO SCH (21:00)
[2023-06-30] MEDS ORDERED: DOCUSATE NA 100 MG CAP PO SCH (21:00)
[2023-06-30] MEDS ORDERED: HOME MED 1 EA UNK (Insulin Glargine,Hum.Rec.Anlog [Lantus Solostar] 100 UNIT/ML Insuln.Pen SQ SCH (21:00)
[2023-07-01] MEDS ORDERED: DIGOXIN 0.125 MG TABLET PO SCH ×2 (06:00)
[2023-07-01] MEDS ORDERED: HOME MED 1 EA UNK (Turmeric [Turmeric] 400 MG Capsule) PO SCH (09:00)
[2023-07-01] MEDS ORDERED: TURMERIC ROOT EXTRACT 500 MG PO SCH (09:00)
[2023-07-01] MEDS ORDERED: [UNRECOGNIZED DRUG - OTHER] PO SCH (09:00)
[2023-07-01] MEDS ORDERED: ZINC GLUCONATE 50 MG TAB PO SCH (09:00)
[2023-07-01] MEDS ORDERED: CRANBERRY PO SCH (09:00)
[2023-07-01] MEDS ORDERED: [UNRECOGNIZED DRUG - OTHER] PO SCH (09:00)
[2023-07-01] MEDS ORDERED: HOME MED 1 EA UNK (Losartan/Hydrochlorothiazide [Losartan-Hctz 100-25 Mg Tab] 1 EACH Table PO SCH (09:00)
[2023-07-01] MEDS ORDERED: CYANOCOBALAMIN 1,000 MCG TAB PO SCH (09:00)
[2023-07-01] MEDS ORDERED: EZETIMIBE 10 MG TAB PO SCH (09:00)
[2023-07-01] MEDS ORDERED: AMITRIPTYLINE 10 MG TAB PO SCH (09:00)
[2023-07-01] MEDS ORDERED: [UNRECOGNIZED DRUG - OTHER] PO SCH (09:00)
[2023-07-01] MEDS ORDERED: [UNRECOGNIZED DRUG - OTHER] PO SCH (09:00)
[2023-07-01] MEDS ORDERED: BACILLUS COAGULANS PO SCH (09:00)
[2023-07-01] MEDS ORDERED: HOME MED 1 EA UNK (Insulin Glargine,Hum.Rec.Anlog [Lantus Solostar] 100 UNIT/ML Insuln.Pen SQ SCH (09:00)
[2023-07-01] MEDS ORDERED: HOME MED 1 EA UNK (Bupropion Hcl [Budeprion Xl] 300 MG Tab.Sr.24h) PO SCH (09:00)
[2023-07-01] MEDS ORDERED: ASCORBIC ACID PO SCH (09:00)
[2023-07-01] MEDS ORDERED: HOME MED 1 EA UNK (Estradiol [Estradiol] 42.5 GM Cream.Appl) VG SCH (17:00)
[2023-07-03] MEDS ORDERED: ASPIRIN EC 81 MG TAB PO SCH (09:00)
== END 2023-06-30 09:30 | disposition home or self-care (01) ==
LOC: OR 05:58
PROVIDERS: ADMIT Obstetrics & Gynecology; ATTEND Obstetrics & Gynecology
PROC: 0TSD0ZZ Reposition Urethra, Open Approach (ICD-10-PCS; principal; 2023-06-30 07:00)
DX: N39.46 Mixed incontinence (principal); R15.9 Full incontinence of feces; Z88.0 Allergy status to penicillin
CPT/HCPCS: 36415; 82947; 85730; 86850; 86900; 86901; 93005; A4216; J0690; J1100; J2001; J2250; J2371; J2405; J2704; J3010; J7030

== ENCOUNTER 2023-07-05 06:23 | Day surgery (SDC) | payer OTHER ==
[2023-06-20 13:59] LABS: Absolute Basophils 0.1 K/uL (0-0.5); Absolute Eosinophils 0.2 K/uL (0-0.5); Absolute Lymphocytes (CBC) 2.3 K/uL (0.7-4.9); Absolute Monocytes 0.5 K/uL (0.1-1.3); Absolute Neutrophil 4.2 K/uL (1.8-8.0); Basophils % 0.7 % (0-1.3); Eosinophils % 3.4 % (0-4.4); Hematocrit 41.9 % (36.0-45.0); Hemoglobin 13.9 g/dL (12.0-15.0); Lymphocytes % 31.3 % (15.3-44.8); MCH 30.3 pg (27.0-35.0); MCHC 33.3 g/dL (32.0-36.0); MCV 90.9 fL (80-100); MPV 8.2 fL (7.6-11.3); Monocytes % 7.2 % (3.3-12.3); Neutrophils % 57.4 % (41.7-73.7); Platelets 249 thou/uL (152-406); Red Cell Distribution Width 14.2 % (12.1-15.2)
--- NOTE | 2023-06-20 13:59 | RAD REPORT ---
EXAM DESCRIPTION: Daisy Calix (2 Views)06/20/2023 1:44 pm CLINICAL HISTORY: Preop for lithotripsy COMPARISON: 2021 FINDINGS: The lungs appear clear of acute infiltrate. The heart is normal size IMPRESSION: No acute abnormalities displayed
[2023-06-20 14:09] LABS: Anion Gap 8.9 mEq/L (5.0-15.0); Potassium 3.9 mEq/L (3.5-5.1)
[2023-06-20 14:35] LABS: PT Prothrombin Time 10.9 SECONDS (9.5-12.5); Protime INR 0.99
[2023-07-05] MEDS: NA CHLORIDE 0.9% 1,000 ML ONE (06:55)
[2023-07-05] MEDS ORDERED: LIDOCAINE 1% MPF 5 ML VIAL ONE (07:28)
[2023-07-05] MEDS ORDERED: propofoL 200 MG/20 ML VIAL IV ONE (07:28)
[2023-07-05] MEDS ORDERED: MIDAZOLAM HCL 2 MG/2 ML INJ ONE (07:28)
[2023-07-05] MEDS ORDERED: FENTANYL CITR 100 MCG/2 ML ONE (07:29)
[2023-07-05] MEDS: CEFAZOLIN SODIUM 2 GM/VIAL ONE (07:30)
[2023-07-05] MEDS ORDERED: ONDANSETRON 4 MG/2 ML VIAL ONE (07:48)
[2023-07-05] MEDS ORDERED: EPHEDRINE SULF 50 MG/ML VIAL ONE (08:02)
[2023-07-05] MEDS ORDERED: TRAMADOL 37.5mg/APAP 325mg PER TAB ONE (09:34)
[2023-07-05] MEDS: TRAMADOL 37.5mg/APAP 325mg PER TAB PO ONE (09:35)
[2023-07-05 10:59] VITALS: BP 121/60; TEMP 97.7; O2SAT 97
--- NOTE | 2023-07-05 13:35 | OP ---
Surgeon: MELO BAUER Preoperative Diagnosis: Left nephrolithiasis: 2 stones; 8 mm and 4 mm in diameter. Postoperative Diagnosis: Left nephrolithiasis: 2 stones; 8 mm and 4 mm in diameter. Principal Procedure: Left extracorporeal shockwave lithotripsy/ESWL. Indication For Procedure: Ms. Boyd presented to the [facility] with a history of nephrouretero lithiasis and residual left nephrolithiasis that was radiopaque identified on fluoroscopic imaging. She was counseled on the opportunity for surgical management and elected to proceed with a shockwave lithotripsy accordingly. Procedure In Detail: The patient was consented in the preoperative holding area before being transfe rred to the operative suite where general anesthesia was induced. She was given Ancef 2 g IV antimic robial prophylaxis, and pneumo boots were provided for DVT prophylaxis. She was placed supine on the operative shockwave lithotripsy table with a water bath placed beneath her left flank. The case was begun using fluoroscopic imagery to target the stone in the anteroposterior and left to right positi ons. With the stone adequately targeted, shockwave lithotripsy was begun and the power was slowly in creased over a course of 500 shocks to a maximum of 6. A 2-minute pause was given after about 250 sh ocks. We then increased the rate to 1.5 hertz at around 600 shocks, and continued re-targeting and s hockwave lithotripsy of the stone and monitoring and moving to ensure adequate targeting along the wa y. At around 2000 shocks, we backed the therapeutic head out and reassessed the stone and it was mor e faintly present but still somewhat visible in its position within the left lower pole. As a result , we re-targeted the residual stone burden in that location where only 1 dominant calcification was n oted, and increased the power to a maximum of 7, and continued targeting of that stone for a remainde r of 1000 additional shocks for a total of 3000 shocks delivered. She was then awakened from general anesthesia, transferred to a stretcher, and then transferred to the recovery room in good condition. Complications: None. Discharge Disposition: She understands to essentially bedrest until the blood in the urine resolves and then she can resume normal physical activity. She was also counseled to avoid taking her baby as pirin and large quantities of turmeric and the baby aspirin should be held until at least [address] the last bit of visible blood in the urine is present. Subsequent followup should be established with me in the next 2 to 3 months with a KUB obtained prior to that followup appointment to assess t he success of the operation. GIOVANNY/JUSTICE Voice ID: [id number] Report ID: [id number]
== END 2023-07-05 10:08 | disposition home or self-care (01) ==
LOC: OR 06:23
PROVIDERS: ATTEND Urology
DX: N20.0 Calculus of kidney (principal); I10 Essential (primary) hypertension; E11.9 Type 2 diabetes mellitus without complications; E78.5 Hyperlipidemia, unspecified; I25.10 Atherosclerotic heart disease of native coronary artery without angina pectoris; N39.46 Mixed incontinence
CPT/HCPCS: 87088; 85025; 87086; 80048; 36415; 85610; 82947; 71046; 50590; J2704; J2001; J2250; J3010; J2405; J7030

== ENCOUNTER 2023-11-27 08:32 | Emergency (ER) | payer OTHER ==
--- OUTSIDE RECORDS SUMMARY | 2023-11-27 08:36 | XMS REPORT | Continuity of Care Document ---
Author Name Unknown Address [address] [facility] [address] [place] [address] [facility] thconnect Address [address] [place] [place] [address] Care Team Providers Care Pet Care Attendant Name Role Phone Bello Casper Primary Care Physician [phone] Bello Love Attending Clinician Unavailable DARELL ACEVES K.HShawn Attending Clinician Allan Rios Attending Clinician Unavailable Vik MCGHEE, Sendil K.H. Attending Clinician + [phone] PETEY ROCA Attending Clinician Unav PETEY Aviles Attending Clinician Unav ailable DENNIS_GCSharifZW_Radhamesa_S Attending Clinician Rg Aceves MD, Sendil K.H. Attending Clinician [phone] Doctor Unassigned, Ephraim Attending Clinician U ron Yeager, Leslie [facility] Main Attending Clinician Allan Erickson Admitting Clinician Unavailable [email or web address]_S Admitting Clinician DARELL Chung Admitting Clinician Rg baxter Payers Payer Name Policy Type Policy Number Effective Date Expirati on Date Source [employer] (PPO) [id number] [employer] (MEDICARE REPLACEMENT/ADVANTAGE - PPO) [id number] Problems Condition Name Condition Details Condition Category Status Onset Date Resolution Date Last Treatment Date Treating Clinician Comments Source Tear of lateral meniscus of knee Tear of Lateral Meniscus of Knee Problem Active 813 00:00: 00 [facility] Osteoarthr itis of right knee joint Osteoarthr itis of Right Knee Joint Problem Active 813 00:00: 00 [facility] Pain of bilateral knee regions Pain of Bilateral Knee Regions Problem Active 10-17 00:00: 00 [facility] Low back pain Low Back Pain Problem Active 716 00:00: 00 [facility] Cardiac arrhythmia Cardiac Arrhythmia Problem Active 4-03 00:00: 00 [facility] Palpitatio ns Palpitatio ns Problem Active 4-03 00:00: 00 [facility] 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 Active 04-20 00:00: 00 [facility] Neuropathy Neuropathy Problem Active 04-20 00:00: 00 [facility] Irritable bowel syndrome Irritable Bowel Syndrome Problem Active 04-20 00:00: 00 [facility] Atrophy of skeletal muscle of pelvis Atrophy of Skeletal Muscle of Pelvis Problem Active 04-20 00:00: 00 [facility] Female stress incontinen ce Female Stress Incontinen ce Problem Active 04-20 00:00: 00 [facility] Atrophic vaginitis Atrophic Vaginitis Problem Active 04-20 00:00: 00 [facility] Incontinen ce of feces Incontinen ce of Feces Problem Active 04-20 00:00: 00 [facility] Urge incontinen ce of urine Urge Incontinen ce of Urine Problem Active 04-20 00:00: 00 [facility] Hyperglyce nancie due to type 2 diabetes mellitus Hyperglyce nancie Due to Type 2 Diabetes Mellitus Problem Active - 00:00: 00 [facility] Tachyarrhy thmia Tachyarrhy thmia Disease Active 2022-03 1- 00:00: 00 [facility] [id number] Stress incontinen ce Problem [facility] Nephrolith iasis Left nephrolith iasis Problem [facility] [id number] OAB (overactiv e bladder) Problem [facility] [id number] Microscopi c hematuria Problem [facility] [id number] Acute UTI Problem [facility] [id number] Recurrent nephrolith iasis Problem [facility] Allergies, Adverse Reactions, Alerts Allergy Name Allergy Type Status Severity Reaction(s) Onset Date Inactive Date Treating Clinician Comments Source Sulfa (Sulfona mide Antibiot ics) DA Active [place] RASH 11-16 00:00: 00 [facility] Dihydroa minopryi dine Antibiot ics DA Active U UNKNOWN 11-16 00:00: 00 [facility] codeine DA Active [place] RASH 0 11-16 00:00: 00 [facility] Penicill ins DA Active NH RED BUMBS ON SKIN 11-16 00:00: 00 [facility] Dihydroa minopryi dine Antibiot ics DA Active U UNKNOWN 8- 00:00: 00 [facility] codeine DA Active U UNKNOWN 8- 00:00: 00 [facility] Penicill in Propensi ty to adverse reaction s Active Hives 2022-03 0-03 00:00: 00 [facility] Sulfa (Sulfona mide Antibiot ics) Propensi ty to adverse reaction s Active Hives 2022-03 0-03 00:00: 00 [facility] ADHESIVE Drug Class Active Rash 2022-03 0-03 00:00: 00 [facility] CODEINE DRUG INGREDI Active Hives 2022-03 0-03 00:00: 00 [facility] PENICILL IN DRUG INGREDI Active Hives 2022-03 0-03 00:00: 00 [facility] SULFA (SULFONA MIDE ANTIBIOT ICS) Drug Class Active Hives 2022-03 0-03 00:00: 00 [facility] Adhesive Propensi ty to adverse reaction s Active Rash 2022-03 0 00:00: 00 [facility] Codeine Propensi ty to adverse reaction s Active Hives 2022-03 003 00:00: 00 [facility] codeine DA Active SV RASH,SWELLIN G 2016-03 013 00:00: 00 [facility] [place] [facility] ANTIBIOT ICS DA Active SV RASH,SWELLIN G 2016-03 0 00:00: 00 [facility] DIHYDROA MINOPRYI DINE ANTIBIOT ICS Allergy to substanc e Active 05-11 00:00: 00 [facility] Codeine Allergy to substanc e Active 05-11 00:00: 00 [facility] ADHESIVE Allergy to substanc e Active [facility] PENICILL INS Allergy to substanc e Active Anaphylaxis [facility] SULFA (SULFONA MIDE ANTIBIOT ICS) Allergy to substanc e Active Rash [facility] codeine codeine Active Unknown [facility] [id number] Drug allergy Active Unknown [facility] Substanc e with sulfonam mattie structur e and antibact erial mechanis m of action (substan ce) Substanc e with sulfonam mattie structur e and antibact erial mechanis m of action (substan ce) Active Unknown [facility] NO KNOWN ALLERGIE S Drug Class Active [facility] Social History Social Habit Start Date Stop Date Quantity Comments Source History of Tobacco Use Current Smoker [facility] Sex Assigned At [facility] Sexual orientation U [facility] Tobacco use and exposure 2023-01-27 00:00:00 2023-01-27 00:00:00 Smokeless tobacco non-user [facility] History of Social function 2023-01-27 00:00:00 2023-01-27 00:00:00 [facility] Smoking Status Start Date Stop Date Source Current Every Day Smoker [facility] Tobacco smoking consumption unknown [facility] Heavy Tobacco Smoker [facility] Medications Ordered Medication Name Filled Medication Name Start Date Stop Date Current Medication? Ordering Clinician Indication Dosage Frequency Signature (SIG) Comments Components Source losartan-hy drochloroth iazide 100-25 mg per tablet 09-01 09:27: 35 09-01 00:00 :00 No [id number] 1{tbl} Take 1 tablet by mouth in the morning. [facility] aspirin (ASPIR-81 ORAL) 09-01 09:00: 52 Yes [id number] Take by mouth. [facility] aspirin (ASPIR-81 ORAL) 2022-03 2-20 09:52: 35 Yes [id number] Take by mouth. [facility] Insulin Glargine (LANTUS SOLOSTAR U-100 INSULIN) 100 unit/mL (3 mL) injection 2022-03 13:56: 52 Yes [id number] inject under the skin. [facility] insulin regular, human (NOVOLIN R INJECTION) 2022-03 13:56: 52 Yes [id number] Inject as directed. [facility] Insulin Glargine (LANTUS SOLOSTAR U-100 INSULIN) 100 unit/mL (3 mL) injection 2022-03 13:56: 52 Yes [id number] inject under the skin. [facility] aspirin (ASPIR-81 ORAL) 2022-03 13:56: 52 Yes [id number] Take by mouth. [facility] aspirin (ASPIR-81 ORAL) 2022-03 0 14:53: 21 Yes [id number] Take by mouth. [facility] Insulin Glargine (LANTUS SOLOSTAR U-100 INSULIN) 100 unit/mL (3 mL) injection 2022-03 0 14:50: 47 Yes [id number] inject under the skin. [facility] insulin regular, human (NOVOLIN R INJECTION) 2022-03 14:50: 47 Yes [id number] Inject as directed. [facility] ezetimibe 10 mg tablet 12-11 00:00: 00 Yes [id number] [facility] DEXCOM G7 SENSOR Debbie 12-01 00:00: 00 Yes [id number] DISCREETLY WORN UNDER CLOTHING TO MEASURE GLUCOSE LEVELS JUST UNDER THE SKIN. CHANGE EVERY 10 DAYS. [facility] Victoza 18 MG/3ML Victoza 18 MG/3ML No Victoza 18 MG/3ML Centrum Silver 50+Women - Centrum Silver 50+Women - No Centrum Silver 50+Women - Vitamin B12 100 MCG Vitamin B12 100 MCG No Vitamin B12 100 MCG Zinc 100 MG Zinc 100 MG No 1{table t} QD Zinc 100 MG Losartan Potassium 25 MG Losartan Potassium 25 MG No 1{table t} QD Losartan Potassium 25 MG Qunol Ultra CoQ10 100-150 MG-UNIT Qunol Ultra CoQ10 100-150 MG-UNIT No Qunol Ultra CoQ10 100-150 MG-UNIT Calcium 500 MG Calcium 500 MG No 1{table t_with_ meals} BID Calcium 500 MG Atorvastati n Calcium 40 MG Atorvastati n Calcium 40 MG No 1{table t} Atorvastat in Calcium 40 MG buPROPion HCl ER (XL) 300 MG buPROPion HCl ER (XL) 300 MG No 1{table t_in_th e_morni ng} QD buPROPion HCl ER (XL) 300 MG Vitamin D3 250 MCG (43186 UT) Vitamin D3 250 MCG (82067 UT) No 1{capsu le} QD Vitamin D3 250 MCG (35271 UT) Potassium 99 MG Potassium 99 MG No 1{table t} QD Potassium 99 MG Neuriva - Neuriva - No Neuriva - PARoxetine HCl 20 MG PARoxetine HCl 20 MG No 1{table t_in_th e_morni ng} QD PARoxetine HCl 20 MG amitriptyli ne amitriptyli ne No amitriptyl ine [facility] atorvastati n 40 mg tablet Take 1 tablet every day by oral route. atorvastati n 40 mg tablet Take 1 tablet every day by oral route. No 1 Q1D atorvastat in 40 mg tablet Take 1 tablet every day by oral route. [facility] B12 B12 No B12 [facility] Yissel Low Dose Aspirin Yissel Low Dose Aspirin No Yissel Low Dose Aspirin [facility] bupropion HBr bupropion HBr No bupropion HBr [facility] bupropion HCl XL 300 mg 24 hr tablet, extended release bupropion HCl XL 300 mg 24 hr tablet, extended release No bupropion HCl XL 300 mg 24 hr tablet, extended release [facility] calcium calcium No calcium [facility] Centrum Silver Centrum Silver No Centrum Silver [facility] CoQ-10 CoQ-10 No CoQ-10 [facility] cranberry cranberry No cranberry [facility] digoxin digoxin No digoxin [facility] estradiol 0.01% (0.1 mg/gram) vaginal cream Insert 0.5 g every day by vaginal route at bedtime for 90 days. estradiol 0.01% (0.1 mg/gram) vaginal cream Insert 0.5 g every day by vaginal route at bedtime for 90 days. No .5g Q1D estradiol 0.01% (0.1 mg/gram) vaginal cream Insert 0.5 g every day by vaginal route at bedtime for 90 days. [facility] Fish Oil Fish Oil No Fish Oil [facility] IBgard IBgard No IBgard [facility] Lantus U-100 Insulin Lantus U-100 Insulin No Lantus U-100 Insulin [facility] diazepam 10 mg tablet TAKE 1 TABLET BY MOUTH NEEDED DIRECTED FOR 2 DAYS diazepam 10 mg tablet TAKE 1 TABLET BY MOUTH NEEDED DIRECTED FOR 2 DAYS No diazepam 10 mg tablet TAKE 1 TABLET BY MOUTH NEEDED DIRECTED FOR 2 DAYS [facility] losartan losartan No losartan [facility] melatonin melatonin No melatonin [facility] Neuriva Original Neuriva Original No Neuriva Original [facility] Novolin R FlexPen Novolin R FlexPen No Novolin R FlexPen [facility] Osteo Bi-Flex Osteo Bi-Flex No Osteo Bi-Flex [facility] potassium potassium No potassium [facility] Vitamin D3 Vitamin D3 No Vitamin D3 [facility] zinc zinc No zinc [facility] Valium 10 mg tablet Take 1 tablet as needed by oral route as directed for 2 days. Valium 10 mg tablet Take 1 tablet as needed by oral route as directed for 2 days. No 1 Valium 10 mg tablet Take 1 tablet as needed by oral route as directed for 2 days. [facility] digoxin 125 mcg (0.125 mg) tablet RX by other MD digoxin 125 mcg (0.125 mg) tablet RX by other MD No digoxin 125 mcg (0.125 mg) tablet RX by other [facility]oxin 250 mcg (0.25 mg) tablet digoxin 250 mcg (0.25 mg) tablet No digoxin 250 mcg (0.25 mg) tablet [facility] estradiol 0.01% (0.1 mg/gram) vaginal cream estradiol 0.01% (0.1 mg/gram) vaginal cream No estradiol 0.01% (0.1 mg/gram) vaginal cream [facility] ezetimibe 10 mg tablet TAKE 1 TABLET BY MOUTH IN THE MORNING ezetimibe 10 mg tablet TAKE 1 TABLET BY MOUTH IN THE MORNING No ezetimibe 10 mg tablet TAKE 1 TABLET BY MOUTH IN THE MORNING [facility] Lantus Solostar U-100 Insulin 100 unit/mL (3 mL) subcutaneou s pen Lantus Solostar U-100 Insulin 100 unit/mL (3 mL) subcutaneou s pen No Lantus Solostar U-100 Insulin 100 unit/mL (3 mL) subcutaneo us pen [facility] losartan 100 mg-hydrochl orothiazide 25 mg tablet TAKE 1 TABLET BY MOUTH IN THE MORNING losartan 100 mg-hydrochl orothiazide 25 mg tablet TAKE 1 TABLET BY MOUTH IN THE MORNING No losartan 100 mg-hydroch lorothiazi de 25 mg tablet TAKE 1 TABLET BY MOUTH IN THE MORNING [facility] tramadol 37.5 mg-acetamin ophen 325 mg tablet tramadol 37.5 mg-acetamin ophen 325 mg tablet No tramadol 37.5 mg-acetami nophen 325 mg tablet [facility] amitriptyli ne 10 mg tablet TAKE 1 TABLET BY MOUTH AT BEDTIME amitriptyli ne 10 mg tablet TAKE 1 TABLET BY MOUTH AT BEDTIME No amitriptyl ine 10 mg tablet TAKE 1 TABLET BY MOUTH AT BEDTIME [facility] atorvastati n 40 mg tablet atorvastati n 40 mg tablet No atorvastat in 40 mg tablet [facility] Turmeric 500 MG Turmeric 500 MG No Turmeric 500 MG Centrum Silver - Centrum Silver - No Centrum Silver - [facility] Aspirin 325 MG [facility] Aspirin 325 MG No 1{table t} QD [facility] Aspirin 325 MG metFORMIN HCl 1000 MG metFORMIN HCl 1000 MG No 1{table t_with_ meals} BID metFORMIN HCl 1000 MG Oste[facility] Bi-Flex Joint Shield - Osteo Bi-Flex Joint Shield - No 1{table t} BID Osteo Bi-Flex Joint Shield - NovoLOG 100 UNIT/ML NovoLOG 100 UNIT/ML No NovoLOG 100 UNIT/ML Ezetimibe 10 MG Ezetimibe 10 MG No 1{table t} QD Ezetimibe 10 MG Osteo Bi-Flex One Per Day - Osteo Bi-Flex One Per Day - No Osteo Bi-Flex One Per Day - Lantus 100 UNIT/ML Lantus 100 UNIT/ML No Lantus 100 UNIT/ML Amitriptyli ne HCl 10 MG Amitriptyli ne HCl 10 MG No QD Amitriptyl ine HCl 10 MG Melatonin 10 MG Melatonin 10 MG No Melatonin 10 MG Fish Oil 1000 MG Fish Oil 1000 MG No 1{capsu le} QD Fish Oil 1000 MG Digoxin 250 MCG Digoxin 250 MCG No 1{table t} QD Digoxin 250 MCG Nexabiotic - Nexabiotic - No Nexabiotic - Mitochondri al Renewal Kit - Mitochondri al Renewal Kit - No Mitochondr ial Renewal Kit - Immunizations Ordered Immunization Name Filled Immunization Name Date Status Comments Source SARS-COV-2 COVID-19 PFIZER VACCINE Unknown Completed [facility] SARS-COV-2 COVID-19 PFIZER VACCINE Unknown Completed [facility] SARS-COV-2 COVID-19 PFIZER VACCINE Unknown Completed [facility] SARS-COV-2 COVID-19 PFIZER VACCINE Unknown Completed [facility] SARS-COV-2 COVID-19 PFIZER VACCINE Unknown Completed [facility] SARS-COV-2 COVID-19 PFIZER VACCINE Unknown Completed [facility] SARS-COV-2 COVID-19 PFIZER VACCINE Unknown Completed [facility] SARS-COV-2 COVID-19 PFIZER VACCINE Unknown Completed [facility] SARS-COV-2 COVID-19 PFIZER VACCINE Unknown Completed [facility] SARS-COV-2 COVID-19 PFIZER VACCINE Unknown Completed [facility] SARS-COV-2 COVID-19 PFIZER VACCINE Unknown Completed [facility] SARS-COV-2 COVID-19 PFIZER VACCINE Unknown Completed [facility] SARS-COV-2 COVID-19 PFIZER VACCINE Unknown Completed [facility] SARS-COV-2 COVID-19 PFIZER VACCINE Unknown Completed [facility] SARS-COV-2 COVID-19 PFIZER VACCINE Unknown Completed [facility] SARS-COV-2 COVID-19 PFIZER VACCINE Unknown Completed [facility] SARS-COV-2 COVID-19 PFIZER VACCINE Unknown Completed [facility] SARS-COV-2 COVID-19 PFIZER VACCINE Unknown Completed [facility] SARS-COV-2 COVID-19 PFIZER VACCINE Unknown Completed [facility] SARS-COV-2 COVID-19 PFIZER VACCINE Unknown Completed [facility] SARS-COV-2 COVID-19 PFIZER VACCINE Unknown Completed [facility] SARS-COV-2 COVID-19 PFIZER VACCINE Unknown Completed [facility] SARS-COV-2 COVID-19 PFIZER VACCINE Unknown Completed [facility] SARS-COV-2 COVID-19 PFIZER VACCINE Unknown Completed [facility] SARS-COV-2 COVID-19 PFIZER VACCINE Unknown Completed [facility] SARS-COV-2 COVID-19 PFIZER VACCINE Unknown Completed [facility] SARS-COV-2 COVID-19 PFIZER VACCINE Unknown Completed [facility] SARS-COV-2 COVID-19 PFIZER VACCINE Unknown Completed [facility] SARS-COV-2 COVID-19 PFIZER VACCINE Unknown Completed [facility] SARS-COV-2 COVID-19 PFIZER VACCINE Unknown Completed [facility] SARS-COV-2 COVID-19 PFIZER VACCINE Unknown Completed [facility] SARS-COV-2 COVID-19 PFIZER VACCINE Unknown Completed [facility] SARS-COV-2 COVID-19 PFIZER VACCINE Unknown Completed [facility] SARS-COV-2 COVID-19 PFIZER VACCINE Unknown Completed [facility] SARS-COV-2 COVID-19 PFIZER VACCINE Unknown Completed [facility] SARS-COV-2 COVID-19 PFIZER VACCINE Unknown Completed [facility] SARS-COV-2 COVID-19 PFIZER VACCINE Unknown Completed [facility] SARS-COV-2 COVID-19 PFIZER VACCINE Unknown Completed [facility] SARS-COV-2 COVID-19 PFIZER VACCINE Unknown Completed [facility] SARS-COV-2 COVID-19 PFIZER VACCINE Unknown Completed [facility] SARS-COV-2 COVID-19 PFIZER VACCINE Unknown Completed [facility] SARS-COV-2 COVID-19 PFIZER VACCINE Unknown Completed [facility] SARS-COV-2 COVID-19 PFIZER VACCINE Unknown Completed [facility] SARS-COV-2 COVID-19 PFIZER VACCINE Unknown Completed [facility] SARS-COV-2 COVID-19 PFIZER VACCINE Unknown Completed [facility] SARS-COV-2 COVID-19 PFIZER VACCINE Unknown Completed [facility] SARS-COV-2 COVID-19 PFIZER VACCINE Unknown Completed [facility] SARS-COV-2 COVID-19 PFIZER VACCINE Unknown Completed [facility] SARS-COV-2 COVID-19 PFIZER VACCINE Unknown Completed [facility] SARS-COV-2 COVID-19 PFIZER VACCINE Unknown Completed [facility] SARS-COV-2 COVID-19 PFIZER VACCINE Unknown Completed [facility] SARS-COV-2 COVID-19 PFIZER VACCINE Unknown Completed [facility] SARS-COV-2 COVID-19 PFIZER VACCINE Unknown Completed [facility] SARS-COV-2 COVID-19 PFIZER VACCINE Unknown Completed [facility] SARS-COV-2 COVID-19 PFIZER VACCINE Unknown Completed [facility] SARS-COV-2 COVID-19 PFIZER VACCINE Unknown Completed [facility] SARS-COV-2 COVID-19 PFIZER VACCINE Unknown Completed [facility] SARS-COV-2 COVID-19 PFIZER VACCINE Unknown Completed [facility] SARS-COV-2 COVID-19 PFIZER VACCINE Unknown Completed [facility] SARS-COV-2 COVID-19 PFIZER VACCINE Unknown Completed [facility] SARS-COV-2 COVID-19 PFIZER VACCINE Unknown Completed [facility] SARS-COV-2 COVID-19 PFIZER VACCINE Unknown Completed [facility] SARS-COV-2 COVID-19 PFIZER VACCINE Unknown Completed [facility] SARS-COV-2 COVID-19 PFIZER VACCINE Unknown Completed [facility] SARS-COV-2 COVID-19 PFIZER VACCINE Unknown Completed [facility] SARS-COV-2 COVID-19 PFIZER VACCINE Unknown Completed [facility] SARS-COV-2 COVID-19 PFIZER VACCINE Unknown Completed [facility] SARS-COV-2 COVID-19 PFIZER VACCINE Unknown Completed [facility] SARS-COV-2 COVID-19 PFIZER VACCINE Unknown Completed [facility] SARS-COV-2 COVID-19 PFIZER VACCINE Unknown Completed [facility] SARS-COV-2 COVID-19 PFIZER VACCINE Unknown Completed [facility] SARS-COV-2 COVID-19 PFIZER VACCINE Unknown Completed [facility] SARS-COV-2 COVID-19 PFIZER VACCINE Unknown Completed [facility] SARS-COV-2 COVID-19 PFIZER VACCINE Unknown Completed [facility] SARS-COV-2 COVID-19 PFIZER VACCINE Unknown Completed [facility] SARS-COV-2 COVID-19 PFIZER VACCINE Unknown Completed [facility] SARS-COV-2 COVID-19 PFIZER VACCINE Unknown Completed [facility] SARS-COV-2 COVID-19 PFIZER VACCINE Unknown Completed [facility] SARS-COV-2 COVID-19 PFIZER VACCINE Unknown Completed [facility] SARS-COV-2 COVID-19 PFIZER VACCINE Unknown Completed [facility] SARS-COV-2 COVID-19 PFIZER VACCINE Unknown Completed [facility] SARS-COV-2 COVID-19 PFIZER VACCINE Unknown Completed [facility] SARS-COV-2 COVID-19 PFIZER VACCINE Unknown Completed [facility] SARS-COV-2 COVID-19 PFIZER VACCINE Unknown Completed [facility] SARS-COV-2 COVID-19 PFIZER VACCINE Unknown Completed [facility] SARS-COV-2 COVID-19 PFIZER VACCINE Unknown Completed [facility] SARS-COV-2 COVID-19 PFIZER VACCINE Unknown Completed [facility] SARS-COV-2 COVID-19 PFIZER VACCINE Unknown Completed [facility] SARS-COV-2 COVID-19 PFIZER VACCINE Unknown Completed [facility] SARS-COV-2 COVID-19 PFIZER VACCINE Unknown Completed [facility] SARS-COV-2 COVID-19 PFIZER VACCINE Unknown Completed [facility] SARS-COV-2 COVID-19 PFIZER VACCINE Unknown Completed [facility] SARS-COV-2 COVID-19 PFIZER VACCINE Unknown Completed [facility] SARS-COV-2 COVID-19 PFIZER VACCINE Unknown Completed [facility] SARS-COV-2 COVID-19 PFIZER VACCINE Unknown Completed [facility] SARS-COV-2 COVID-19 PFIZER VACCINE Unknown Completed [facility] SARS-COV-2 COVID-19 PFIZER VACCINE Unknown Completed [facility] SARS-COV-2 COVID-19 PFIZER VACCINE Unknown Completed [facility] SARS-COV-2 COVID-19 PFIZER VACCINE Unknown Completed [facility] SARS-COV-2 COVID-19 PFIZER VACCINE Unknown Completed [facility] SARS-COV-2 COVID-19 PFIZER VACCINE Unknown Completed [facility] SARS-COV-2 COVID-19 PFIZER VACCINE Unknown Completed [facility] SARS-COV-2 COVID-19 PFIZER VACCINE Unknown Completed [facility] SARS-COV-2 COVID-19 PFIZER VACCINE Unknown Completed [facility] SARS-COV-2 COVID-19 PFIZER VACCINE Unknown Completed [facility] SARS-COV-2 COVID-19 PFIZER VACCINE Unknown Completed [facility] SARS-COV-2 COVID-19 PFIZER VACCINE Unknown Completed [facility] SARS-COV-2 COVID-19 PFIZER VACCINE Unknown Completed [facility] SARS-COV-2 COVID-19 PFIZER VACCINE Unknown Completed [facility] SARS-COV-2 COVID-19 PFIZER VACCINE Unknown Completed [facility] SARS-COV-2 COVID-19 PFIZER VACCINE Unknown Completed [facility] SARS-COV-2 COVID-19 PFIZER VACCINE Unknown Completed [facility] SARS-COV-2 COVID-19 PFIZER VACCINE Unknown Completed [facility] SARS-COV-2 COVID-19 PFIZER VACCINE Unknown Completed [facility] SARS-COV-2 COVID-19 PFIZER VACCINE Unknown Completed [facility] SARS-COV-2 COVID-19 PFIZER VACCINE Unknown Completed [facility] SARS-COV-2 COVID-19 PFIZER VACCINE Unknown Completed [facility] SARS-COV-2 COVID-19 PFIZER VACCINE Unknown Completed [facility] SARS-COV-2 COVID-19 PFIZER VACCINE Unknown Completed [facility] SARS-COV-2 COVID-19 PFIZER VACCINE Unknown Completed [facility] SARS-COV-2 COVID-19 PFIZER VACCINE Unknown Completed [facility] SARS-COV-2 COVID-19 PFIZER VACCINE Unknown Completed [facility] SARS-COV-2 COVID-19 PFIZER VACCINE Unknown Completed [facility] Vital Signs Vital Name Observation Time Observation Value Comments S ource BMI (Body Mass Index) 2023-11-01 00:00:00 27.8 kg/m2 [facility] Body Weight 2023-11-01 00:00:00 188 [lb_av] [facility] Height 2023-11-01 00:00:00 69 [in_i] [facility] BP Diastolic 2023-10-21 00:00:00 53 mm[Hg] [facility] Body Weight 2023-10-21 00:00:00 187.2 [lb_av] [facility] BMI (Body Mass Index) 2023-10-21 00:00:00 27.6 kg/m2 [facility] BP Systolic 2023-10-21 00:00:00 144 mm[Hg] [facility] Height 2023-10-21 00:00:00 69 [in_i] [facility] BMI (Body Mass Index) 2023-10-18 00:00:00 27.8 kg/m2 [facility] Height 2023-10-18 00:00:00 69 [in_i] [facility] Body Weight 2023-10-18 00:00:00 188 [lb_av] [facility] BMI (Body Mass Index) 2023-10-14 00:00:00 27.6 kg/m2 [facility] BP Diastolic 2023-10-14 00:00:00 65 mm[Hg] [facility] Body Weight 2023-10-14 00:00:00 187.2 [lb_av] [facility] BP Systolic 2023-10-14 00:00:00 152 mm[Hg] [facility] Height 2023-10-14 00:00:00 69 [in_i] [facility] BP Diastolic 2023-10-04 00:00:00 65 mm[Hg] [facility] Body Weight 2023-10-04 00:00:00 187.2 [lb_av] [facility] BP Systolic 2023-10-04 00:00:00 145 mm[Hg] [facility] Height 2023-10-04 00:00:00 69 [in_i] [facility] height 2023-09-14 11:00:00 69 [in_i] Commo n [facility] weight 2023-09-14 11:00:00 184.8 [lb_av] Co mmon [facility] temperature 2023-09-14 11:00:00 96.5 [degF] Com mon [facility] bmi 2023-09-14 11:00:00 27.29 kg/m2 Comm on [facility] oximetry 2023-09-14 11:00:00 95 % Commo n [facility] respiratory rate 2023-09-14 11:00:00 18 /min [facility] blood pressure systolic 2023-09-14 11:00:00 141 mm[Hg] Common [facility] blood pressure diastolic 2023-09-14 11:00:00 64 mm[Hg] [facility] Systolic blood pressure 2023-09-02 13:56:00 164 mm[Hg] [facility] Diastolic blood pressure 2023-09-02 13:56:00 73 mm[Hg] [facility] Heart rate 2023-09-02 13:56:00 88 /min [facility] Body temperature 2023-09-02 13:56:00 36.61 Carmen [facility] Body height 2023-09-02 13:56:00 175.3 cm [facility] Body weight 2023-09-02 13:56:00 85.004 kg [facility] BMI 2023-09-02 13:56:00 27.67 kg/m2 [facility] Oxygen saturation in Arterial blood by Pulse oximetry 2023-09-02 13:56:00 98 /min [facility] BP Diastolic 2023-08-10 00:00:00 98 mm[Hg] [facility] BP Systolic 2023-08-10 00:00:00 138 mm[Hg] [facility] Body Weight 2023-08-10 00:00:00 185.4 [lb_av] [facility] BMI (Body Mass Index) 2023-08-10 00:00:00 27.4 kg/m2 [facility] Height 2023-08-10 00:00:00 69 [in_i] [facility] Systolic blood pressure 2023-07-28 13:34:00 130 mm[Hg] [facility] Diastolic blood pressure 2023-07-28 13:34:00 67 mm[Hg] [facility] Heart rate 2023-07-28 13:34:00 89 /min [facility] Respiratory rate 2023-07-28 13:34:00 18 /min [facility] Body height 2023-07-28 13:34:00 175.3 cm [facility] Body weight 2023-07-28 13:34:00 82.356 kg [facility] BMI 2023-07-28 13:34:00 26.81 kg/m2 [facility] Oxygen saturation in Arterial blood by Pulse oximetry 2023-07-28 13:34:00 96 /min [facility] Body Weight 2023-06-22 00:00:00 183 [lb_av] [facility] Height 2023-06-22 00:00:00 69 [in_i] [facility] BP Systolic 2023-06-22 00:00:00 166 mm[Hg] [facility] BP Diastolic 2023-06-22 00:00:00 72 mm[Hg] [facility] BMI (Body Mass Index) 2023-06-22 00:00:00 27 kg/m2 [facility] height 2023-06-09 11:30:00 69 [in_i] Commo n [facility] weight 2023-06-09 11:30:00 182.6 [lb_av] Co mmon [facility] temperature 2023-06-09 11:30:00 97.8 [degF] Com mon [facility] bmi 2023-06-09 11:30:00 26.96 kg/m2 Comm on [facility] oximetry 2023-06-09 11:30:00 97 % Commo n [facility] respiratory rate 2023-06-09 11:30:00 18 /min [facility] blood pressure systolic 2023-06-09 11:30:00 149 mm[Hg] Common [facility] blood pressure diastolic 2023-06-09 11:30:00 67 mm[Hg] [facility] height 2023-04-06 15:15:00 69 [in_i] Commo n [facility] weight 2023-04-06 15:15:00 179.2 [lb_av] Co mmon [facility] temperature 2023-04-06 15:15:00 97.9 [degF] Com mon [facility] bmi 2023-04-06 15:15:00 26.46 kg/m2 Comm on [facility] oximetry 2023-04-06 15:15:00 96 % Commo n [facility] respiratory rate 2023-04-06 15:15:00 18 /min [facility] blood pressure systolic 2023-04-06 15:15:00 148 mm[Hg] [facility] blood pressure diastolic 2023-04-06 15:15:00 65 mm[Hg] [facility] Systolic blood pressure 2023-03-09 15:40:00 137 mm[Hg] [facility] Diastolic blood pressure 2023-03-09 15:40:00 68 mm[Hg] [facility] Heart rate 2023-03-09 15:40:00 77 /min [facility] Oxygen saturation in Arterial blood by Pulse oximetry 2023-03-09 15:40:00 95 /min [facility] Respiratory rate 2023-03-09 15:38:00 17 /min [facility] Body height 2023-03-09 15:38:00 175.3 cm [facility] Body weight 2023-03-09 15:38:00 78.472 kg [facility] BMI 2023-03-09 15:38:00 25.55 kg/m2 [facility] Systolic blood pressure 2023-01-27 14:14:00 134 mm[Hg] [facility] Diastolic blood pressure 2023-01-27 14:14:00 71 mm[Hg] [facility] Heart rate 2023-01-27 14:14:00 70 /min [facility] Respiratory rate 2023-01-27 14:11:00 18 /min [facility] Body height 2023-01-27 14:11:00 175.3 cm [facility] Body weight 2023-01-27 14:11:00 78.79 kg [facility] BMI 2023-01-27 14:11:00 25.65 kg/m2 [facility] Oxygen saturation in Arterial blood by Pulse oximetry 2023-01-27 14:11:00 97 /min [facility] height 2023-01-26 08:00:00 69 [in_i] Commo n [facility] weight 2023-01-26 08:00:00 171.4 [lb_av] Co mmon [facility] temperature 2023-01-26 08:00:00 97.6 [degF] Com mon [facility] bmi 2023-01-26 08:00:00 25.31 kg/m2 Comm on [facility] oximetry 2023-01-26 08:00:00 99 % Commo n [facility] respiratory rate 2023-01-26 08:00:00 18 /min Common [facility] blood pressure systolic 2023-01-26 08:00:00 138 mm[Hg] [facility] blood pressure diastolic 2023-01-26 08:00:00 63 mm[Hg] [facility] Systolic blood pressure 2022-12-21 20:00:00 136 mm[Hg] [facility] Diastolic blood pressure 2022-12-21 20:00:00 63 mm[Hg] [facility] Heart rate 2022-12-21 20:00:00 86 /min [facility] Body height 2022-12-21 20:00:00 175.3 cm [facility] Body weight 2022-12-21 20:00:00 79.379 kg [facility] BMI 2022-12-21 20:00:00 25.84 kg/m2 [facility] Oxygen saturation in Arterial blood by Pulse oximetry 2022-12-21 20:00:00 95 /min [facility] Procedures Procedure Date / Time Performed Performing Clinician Source XR, knee, 1 or 2 view 2023-10-18 00:00:00 [facility] MRI, knee, w/o contrast 2023-10-18 00:00:00 [facility] Percutaneous Sacral Nerve Evaluation 2023-10-14 00:00:00 [facility] Procedure on Kidney 2023-07-05 00:00:00 [facility] Pelvic Sling 2023-06-30 00:00:00 [facility] US, transvaginal 2023-04-22 00:00:00 [facility] PVR 2023-01-26 00:00:00 [facility] TRANSTHORACIC ECHO (TTE) COMPLETE 2023-01-05 14:56:26 Darell Aceves [facility] HB ECG ROUTINE & RHYTHM STRIP 2022-12-21 19:56:22 Darell Aceves [facility] ASSIGNMENT OF BENEFITS 2022-12-21 18:54:47 Docto r Unassigned, Ephraim [facility] CONSENT/REFUSAL FOR DIAGNOSIS AND TREATMENT 2022-12-21 18:54:27 Doctor Unassigned, Ephraim [facility] EXTERNAL PROVIDER - ADC REFERRAL 2022-12-14 05:01:00 Doctor Unassigned, Ephraim [facility] Procedure on Heart 2022-09-18 00:00:00 [facility] Lithotripsy 2016-03-25 00:00:00 [facility] Procedure on Shoulder 2012-03-21 00:00:00 [facility] ENT/Sinus Surgery [facility] Eye Surgery [facility] Heart Stent [facility] Tonsillectomy [facility] Encounters Start Date/Time End Date/Time Encounter Type Admission Type Attending [facility] Care Facility Care Department Encounter ID Source 2023-10-10 11:17:00 Outpatient Bello Love [facility] [id number] [facility] 2023-01-26 07:48:00 Outpatient Bello Love [facility] [id number] [facility] 2023-11-25 05:28:00 2023-11-25 05:28:00 Outpatient Allan Duff [facility] [id number] [facility] 2023-11-23 00:00:00 2023-11-23 15:02:36 Telephone Vik, Sendjean-claude K.H. [address]114 350.1.13.10 4.2.7.2.686 [id number] [facility] 2023-11-22 00:00:00 2023-11-22 15:58:39 Telephone Vik Sendjean-claude [facility] [address].114 350.1.13.10 4.2.7.2.686 [id number] [facility] 2023-11-16 00:00:00 2023-11-16 14:46:55 Telephone Aceves, Sendil [facility] [address].114 350.1.13.10 4.2.7.2.686 [id number] [facility] 2023-11-01 00:00:00 2023-11-01 00:00:00 Allan Chaves MD: [id number] [place] [address] , Ph. [phone] [facility] [place] [facility] [place] [id number] [facility] 2023-10-21 00:00:00 2023-10-21 00:00:00 BARI Miramontes: [address], [address] [phone] , Ph. [facility] - GC_GCBZW_Wi crystal Charanjit* [id number] [facility] 2023-10-18 00:00:00 2023-10-18 00:00:00 Allan Chaves MD: [id number] [place] [id number] , Ph. [phone] [facility] [place] [facility] [place] [id number] [facility] 2023-10-14 00:00:00 2023-10-14 00:00:00 BARI Miramontes: [address], [address] [phone] , Ph. [facility] - GC_GCBZW_Haydee rojas Charanjit* [id number] [facility] 2023-10-04 00:00:00 2023-10-04 00:00:00 Sharon Beth MD: [address], [facility] [address], [place] [phone] , Ph. [facility] - GC_GCBZW_Haydee rojas Charanjit* [id number] [facility] 2023-09-29 00:00:00 2023-09-29 00:00:00 BOLIVAR Altamirano: [address], [facility] [address], [place] [phone] , Ph. [facility] - GC_GCBZW_Haydee rojas Charanjit* [id number] [facility] 2023-09-21 00:00:00 2023-09-21 00:00:00 BOLIVAR Altamirano: [address], [address], [place] [address] , Ph. [facility] - GC_GCBZW_Haydee rojas Charanjit* [id number] [facility] 2023-09-15 00:00:00 2023-09-15 00:00:00 BOLIVAR Altamirano: [address], [address], [place] [phone] , Ph. [facility] - GC_GCBZW_Haydee rojas Charanjit* [id number] [facility] 2023-09-14 00:00:00 2023-09-14 00:00:00 OFFICE VISIT ESTAB PT LEVEL 3 STLMLC STLMLC [id number] [facility] 2023-09-08 00:00:00 2023-09-08 00:00:00 BOLIVAR Altamirano: [address], [address], [place] [phone] , Ph. [facility] - GC_GCBZW_Haydee rojas Charanjit* [id number] [facility] 2023-09-02 09:00:00 2023-09-02 09:17:28 Outpatient R DARELL ACEVES [facility] [id number] [facility] 2023-09-02 09:00:00 2023-09-02 09:17:28 [facility] 1.2.840.114 350.1.13.10 4.2.7.2.686 [id number] [facility] 2023-09-01 00:00:00 2023-09-01 00:00:00 BOLIVAR Altamirano: [address], [address], [place] [phone] , Ph. [facility] - GC_GCBZW_Haydee Donohue* [id number] [facility] 2023-08-25 00:00:00 2023-08-25 00:00:00 BOLIVAR Altamirano: [address], [address], [place] [phone] , Ph. [facility] - GC_GCBZW_Haydee rojas Charanjit* [id number] [facility] 2023-08-10 00:00:00 2023-08-10 00:00:00 Sharon Beth MD: [address], [address], [place] [phone] , Ph. [facility] - GC_GCBZW_Haydee rojas Charanjit* [id number] [facility] 2023-07-28 08:20:00 2023-07-28 08:52:14 Outpatient R JESICA ROCA CHOCKALINGA M [facility] [id number] [facility] 2023-07-28 08:20:00 2023-07-28 08:52:14 Office Visit Jesica Roca [facility] 1.2.840.114 350.1.13.10 4.2.7.2.686 [id number] [facility] 2023-06-23 00:00:00 2023-06-23 00:00:00 Outpatient GC_GCBZW_Ka eliuda_S [facility] [id number] [facility] 2023-06-22 00:00:00 2023-06-22 00:00:00 BOLIVAR Sharpe: [address], [address], [place] [phone] , Ph. [facility] - GC_GCBZW_Haydee Donohue* [id number] [facility] 2023-06-22 00:00:00 2023-06-22 00:00:00 Telephone Darell AcevesH. [facility] 1.2.840.114 350.1.13.10 4.2.7.2.686 [id number] [facility] 2023-06-20 00:00:00 2023-06-20 00:00:00 Telephone Aceves, Darell KimbleH. [facility] 1.2.840.114 350.1.13.10 4.2.7.2.686 [id number] [facility] 2023-06-20 00:00:00 2023-06-20 00:00:00 Patient Secure Msg Doctor Unassigned, Ephraim [facility] 1.2.840.114 350.1.13.10 4.2.7.2.686 [id number] [facility] 2023-06-10 00:00:00 2023-06-10 00:00:00 Telephone Aceves, Darell Marroquin.H. [facility] 1.2.840.114 350.1.13.10 4.2.7.2.686 [id number] [facility] 2023-06-09 00:00:00 2023-06-09 00:00:00 OFFICE VISIT ESTAB [facility]EVEL 4 [facility] [id number] 2023-05-28 00:00:00 2023-05-28 00:00:00 Outpatient GC_GCBZW_Ka diyala_S PRIV PRIV [id number] [facility] 2023-05-11 00:00:00 2023-05-11 00:00:00 Outpatient GC_GCBZW_Ka diyala_S PRIV PRIV [id number] [facility] 2023-05-11 00:00:00 2023-05-11 00:00:00 Sharon Beth MD: [facility] [address], [place] [address] , Ph. [facility] - GC_GCBZW_Haydee Donohue* [id number] [facility] 2023-05-03 00:00:00 2023-05-03 00:00:00 Outpatient GC_GCBZW_Ka diyala_S PRIV PRIV [id number] [facility] 2023-05-03 00:00:00 2023-05-03 00:00:00 BARI Miramontes: [address], [address], [place] [address] , Ph. [facility] - GC_GCBZW_Haydee crystal Charanjit* [id number] [facility] 2023-04-26 00:00:00 2023-04-26 00:00:00 Outpatient GC_GCBZW_Ka diyala_S PRIV PRIV [id number] [facility] 2023-04-26 00:00:00 2023-04-26 00:00:00 Sharon Beth MD: [address], [address], [place] [phone] , Ph. [facility] - GC_GCBZW_Haydee Donohue* [id number] [facility] 2023-04-25 00:00:00 2023-04-25 00:00:00 Outpatient GC_GCBZW_Ka diyala_S PRIV PRIV [id number] [facility] 2023-04-22 00:00:00 2023-04-22 00:00:00 Outpatient GC_GCBZW_Ka diyala_S PRIV PRIV [id number] [facility] 2023-04-22 00:00:00 2023-04-22 00:00:00 Sharon Beth MD: [address], [address], [place] [phone] , Ph. [facility] - GC_GCBZW_Haydee Donohue* [id number] [facility] 2023-04-20 00:00:00 2023-04-20 00:00:00 Outpatient GC_GCBZW_Ka diyala_S [facility] [id number] [facility] 2023-04-20 00:00:00 2023-04-20 00:00:00 Sharon Beth MD: [address] [place] [address] [address], [address], [place] [address] , Ph. [facility] - GC_GCBZW_La [facility]* [id number] [facility] 2023-04-14 00:00:00 2023-04-14 00:00:00 Outpatient GC_GCBZW_Ka diyala_S [facility] [id number] [facility] 2023-04-13 00:00:00 2023-04-13 00:00:00 (TEL) STLMLC STLMLC [id number] [facility] 2023-04-06 00:00:00 2023-04-06 00:00:00 OFFICE VISIT ESTAB PT LEVEL 4 STLMLC STLMLC [id number] [facility] 2023-03-28 12:53:08 2023-03-28 23:59:00 Outpatient DARELL LEONE [facility] [id number] [facility] 2023-03-28 12:53:08 2023-03-28 23:59:00 Hospital Encounter Darell Aceves [facility] 1.2.840.114 350.1.13.10 4.2.7.2.686 [id number] [facility] 2023-03-17 00:00:00 2023-03-17 00:00:00 Outpatient GC_GCBZW_Ka diyala_S [facility] [id number] [facility] 2023-03-09 09:30:00 2023-03-09 10:15:35 Outpatient DARELL LEONE [facility] [id number] [facility] 2023-03-09 09:30:00 2023-03-09 10:15:35 Office Visit Darell Aceves [facility] 1.2.840.114 350.1.13.10 4.2.7.2.686 [id number] [facility] 2023-02-18 08:30:00 2023-02-18 08:30:00 Outpatient R JESICA ROCA CHOCKALINGA M [facility] [id number] [facility] 2023-02-14 00:00:00 2023-02-14 00:00:00 Telephone Darell Aceves [facility] 1.2.840.114 350.1.13.10 4.2.7.2.686 [id number] [facility] 2023-02-07 08:00:00 2023-02-07 08:00:00 Outpatient R JESICA ROCA CHOCKALINGA M [facility] [id number] [facility] 2023-01-27 08:20:00 2023-01-27 08:43:20 Outpatient R JESICA ROCA CHOCKALINGA M [facility] [id number] [facility] 2023-01-27 08:20:00 2023-01-27 08:43:20 Office Visit Jesica Roca [facility] 1.2.840.114 350.1.13.10 4.2.7.2.686 [id number] [facility] 2023-01-26 00:00:00 2023-01-26 00:00:00 OFFICE VISIT NEW PT LEVEL 3 STLMLC STLMLC [id number] [facility] 2023-01-18 00:00:00 2023-01-18 00:00:00 [facility] 1.2.840.114 350.1.13.10 4.2.7.2.686 [id number] [facility] 2023-01-13 00:00:00 2023-01-13 00:00:00 Telephone Darell Aceves [facility] 1.2.840.114 350.1.13.10 4.2.7.2.686 [id number] [facility] 2023-01-10 10:30:00 2023-01-10 10:45:00 Audiology Doctor Visit Pob, Adc Lab Main Darell Aceves [facility] 1.2.840.114 350.1.13.10 4.2.7.2.686 [id number] [facility] 2023-01-10 10:30:00 2023-01-10 10:30:00 Outpatient R DARELL AECVES [facility] [id number] [facility] 2023-01-05 08:38:03 2023-01-05 23:59:00 Hospital Encounter Darell Aceves [facility] 1.2.840.114 350.1.13.10 4.2.7.2.686 [id number] [facility] 2023-01-05 08:38:03 2023-01-05 23:59:00 Outpatient R DARELL ACEVES [facility] [id number] [facility] 2023-01-05 00:00:00 2023-01-05 00:00:00 Telephone Darell Aceves [facility] 1.2.840.114 350.1.13.10 4.2.7.2.686 [id number] [facility] 2022-12-30 00:00:00 2022-12-30 00:00:00 Telephone Darell AcevesMcShawn [facility] 1.2.840.114 350.1.13.10 4.2.7.2.686 [id number] [facility] 2022-12-23 00:00:00 2022-12-23 00:00:00 Telephone Darell AcevesMcShawn [facility] 1.2.840.114 350.1.13.10 4.2.7.2.686 [id number] [facility] 2022-12-21 14:30:00 2022-12-21 15:28:38 Outpatient R DARELL ACEVES [facility] [id number] [facility] 2022-12-21 14:30:00 2022-12-21 15:28:38 Office Visit Darell AcevesMcShawn [facility] 1.2.840.114 350.1.13.10 4.2.7.2.686 [id number] [facility] 2022-12-21 00:00:00 2022-12-21 00:00:00 Orders Only Doctor Unassigned, [place] [facility] 1.2.840.114 350.1.13.10 4.2.7.2.686 [id number] [facility] 2022-12-14 00:00:00 2022-12-14 00:00:00 Orders Only Doctor Unassigned, [place] [facility] 1.2.840.114 350.1.13.10 4.2.7.2.686 [id number] [facility] Results Test Description Test Time Test Comments Results Result Co mments Source urinalysis, [id number] 16:23:00* Test Item Value Reference Range Interpretation Comme nts Leukocytes (test code = Leukocytes) Negative Nitrite (test code = Nitrite) negative Urobilinogen (test code = Urobilinogen) Normal Protein (test code = Protein) Negative pH (test code = pH) 6.0 Blood (test code = Blood) Negative Specific Otter (test code = Specific Otter) 1.005 Ketone (test code = Ketone) Negative Bilirubin (test code = Bilirubin) Negative Glucose (test code = Glucose) Negative Appearance (test code = Appearance) Clear Color (test code = Color) Yellow [facility] of post-voiding residual urine and/or bladder capacity (PROC)2023-10-04 11:12:00* Test Item Value Reference Range Interpretation Comme nts (PVR) (test code = (PVR)) 0 [facility] of post-voiding residual urine and/or bladder capacity (PROC)2023-08-10 09:10:00* Test Item Value Reference Range Interpretation Comme nts (PVR) (test code = (PVR)) 15 [facility] MedicalUrinalysis macro (dipstick) panel - [id number] 11:45:20* Test Item Value Reference Range Interpretation Comme nts Leukocytes (test code = Leukocytes) Negative Nitrite (test code = Nitrite) negative Urobilinogen (test code = Urobilinogen) Normal Protein (test code = Protein) Negative pH (test code = pH) 6.0 Blood (test code = Blood) Negative Specific Otter (test code = Specific Otter) 1.015 Ketone (test code = Ketone) Negative Bilirubin (test code = Bilirubin) Negative Glucose (test code = Glucose) 250 Appearance (test code = Appearance) Clear Color (test code = Color) Pale Yellow [facility]Urinalysis macro (dipstick) panel - [id number] 08:31:48* Test Item Value Reference Range Interpretation Comme nts Leukocytes (test code = Leukocytes) Negative Nitrite (test code = Nitrite) negative Urobilinogen (test code = Urobilinogen) Normal Protein (test code = Protein) Negative pH (test code = pH) 6.0 Blood (test code = Blood) Negative Specific Otter (test code = Specific Otter) 1.015 Ketone (test code = Ketone) Negative Bilirubin (test code = Bilirubin) Negative Glucose (test code = Glucose) Negative Appearance (test code = Appearance) Clear Color (test code = Color) Dark Yellow [facility] MedicalUrinalysis macro (dipstick) panel - [id number] 10:06:19* Test Item Value Reference Range Interpretation Comme nts Leukocytes (test code = Leukocytes) Negative Nitrite (test code = Nitrite) negative Urobilinogen (test code = Urobilinogen) Normal Protein (test code = Protein) Negative pH (test code = pH) 6.0 Blood (test code = Blood) Negative Specific Otter (test code = Specific Otter) 1.020 Ketone (test code = Ketone) Negative Bilirubin (test code = Bilirubin) Negative Glucose (test code = Glucose) Negative Appearance (test code = Appearance) Clear Color (test code = Color) Dark Yellow [facility]2023-01-05 17:32:05* Test Item Value Reference Range Interpretation Comme nts Height (test code = 0888496036) 69 in Weight (test code = 0301351386) 175 lbs Systolic BP (test code = 9735406166) 144 mmHg Diastolic BP (test code = 6200379614) 67 mmHg Heart Rate (test code = 2504972024) 80 bpm BSA (test code = 0424474408) 1.95 m2 LVIDD (test code = 2270258968) 4.10 cm Left Ventricular End Diastolic Volume by Teichholz Method (test code = 2737205) 72.7 mL IVS (test code = 3741111274) 1.19 cm Interventricular Septum Diastolic Thickness by 2D (test code = 6555724) 1.19 cm LVPWD (test code = 0314724345) 1.06 cm PW (test code = 9069287525) 1.06 cm 0.6-1.1 EF(Teich) (test code = 0168580836) 58.30 % LVIDS (test code = 7417168613) 2.80 cm Left Ventricular End Systolic Volume by Teichholz Method (test code = 5529770) 30.3 mL FS (test code = 1743651780) 30 % EF - 2D (test code = 20518108) 58.30 % LVOT diameter (test code = 9855948630) 1.98 cm LVOT area (test code = 0624592573) 3.10 cm2 ACS (test code = 6224489023) 2.01 cm Ao root diam (test code = 9881974905) 3.30 cm Aortic root (test code = 1481932191) 3.3 cm Ao root annulus (test code = 6361920747) 3.3 cm LA size (test code = 2473925329) 4.0 cm E wave decelartion time (test code = 8817305298) 0.32 s MV Peak E Curt (test code = 6078308530) 72.8 cm/s MV Peak A Curt (test code = 7183356534) 85.9 cm/s E/A ratio (test code = 3158071401) 0.85 ratio MV Prop V (test code = 2014375770) 45.60 cm/s Tapse (test code = 9735507591) 2.04 cm LVOT stroke volume (test code = 7653912047) 81.20 cm3 LVOT peak curt (test code = 0351397338) 109.5 cm/s LVOT mn grad (test code = 0921264187) 2.2 mmHg AV LVOT peak gradient (test code = 1565991092) 4.8 mmHg LVOT peak VTI (test code = 0521270432) 26.4 cm LV V1 mean (test code = 3072721151) 66.40 cm/s MR max PG (test code = 7415024430) 67.50 mm[Hg] MR max curt (test code = 3007194175) 410.70 cm/s Mr max curt (test code = 3088808205) 410.7 m/s Aortic valve mean velocity (test code = 4595142902) 110.1 cm/s Ao peak curt (test code = 0261379146) 189.3 cm/s Ao VTI (test code = 1329474486) 35.7 cm AV area by cont VTI (test code = 2061486192) 2.3 cm2 AV area peak curt (test code = 8207738331) 1.8 cm2 Ao max PG (test code = 5063704557) 14.30 mm[Hg] AV peak gradient (test code = 6617779278) 14.3 mmHg AV valve area (test code = 7211251777) 2.28 cm2 AV mean gradient (test code = 2826775198) 6.0 mmHg LAV(MOD-sp4) (test code = 3466904253) 32.80 mL Radiology Study observation (narrative) (test code = 31829-7) CHEY (test code = CHEY) ?Left?Ventricle: Left ventricle size is normal. Mildly increased wall thickness. Normal wall motion. Normal systolic function with a visually estimated EF of 55 - 60%. There is impaired relaxation. Normal left ventricular filling pressure. ?Right?Ventricle: Right ventricle size is normal. Normal systolic function. TAPSE is 2.04 cm. ?Tricuspid?Valve: Trace transvalvular regurgitation. Insufficient tricuspid regurgitation jet to estimate RVSP . ?RA pressure is 5-10 mmHg. ?Left?Atrium: Left atrium is mildly dilated. Left VentricleLeft ventricle size is normal. Mildly increased wall thickness. Normal wall motion. Normal systolic function with a visually estimated EF of 55 - 60%. There is impaired relaxation. Normal left ventricular filling pressure.Right VentricleRight ventricle size is normal. Normal systolic function. TAPSE is 2.04 cm.Left AtriumLeft atrium is mildly dilated.Right AtriumRight atrium size is normal.IVC/SVCRA pressure is 5-10 mmHg.Mitral ValveMildly thickened leaflets. Mild mitral annular calcification. Trace transvalvular regurgitation.Tricusp id ValveTricuspid valve structure is grossly normal. Trace transvalvular regurgitation. Insufficient tricuspid regurgitation jet to estimate RVSP . RA pressure is 5-10 mmHg.Aortic ValveTricuspid. Mildly calcified cusps.Pulmonic ValveNot well visualized.Ascending AortaNormal sized aortic root.PericardiumNo pericardial effusion.Study DetailsStudy quality was adequate. A complete echocardiogram was performed using 2D, color flow Doppler and spectral Doppler. The apical, parasternal and subcostal views were obtained. [facility]Abdomen 1 View (KUB) Notes Date/Time Note Provider Source 2023-11-25 07:27:00 [id number] [facility] [address] [address] PATIENT NAME: MELONIE BOYD ADMIT DATE: 11/25/23 ACCOUNT NO: [id number] ROOM NO: AGE: 63 REPORT TYPE: OPERATIVE REPORT SEX: F ADMITTING PHYSICIAN: ATTENDING PHYSICIAN:Allan Chaves MD OPERATION DATE: 11/25/2023 PREOPERATIVE DIAGNOSES: Right knee lateral meniscal tear with osteoarthropathy involving the left knee. POSTOPERATIVE DIAGNOSES: Right knee lateral meniscal tear with osteoarthropathy involving the left knee. 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 OPERATIVE PROCEDURES PERFORMED: 1. Right knee diagnostic arthroscopy with an arthroscopic partial lateral meniscectomy, . 2. Ultrasound-guided intra-articular injection, left knee, . ANESTHESIA: General. TOURNIQUET TIME: 15 minutes. ESTIMATED BLOOD LOSS: None. SURGEON: Allan Chaves M.D. LIBRARY CIRCULATION ASSISTANT: MARIA FERNANDA Coelho. OPERATIVE FINDINGS: As above. SURGICAL SPECIMENS SENT: None. CLINICAL INDICATIONS: Ms. Boyd is a 63-year-old female from [place], [place], who has been having progressive pain with frequent swelling, catching and locking involving the right knee. Her symptoms are occurring on a daily basis. Her pain has been refractory to nonoperative treatment. Due to her progressive disability, she is admitted for arthroscopic meniscectomy of the right knee with a concomitant intraarticular corticosteroid injection of the left knee. OPERATIVE NARRATIVE: 1. RIGHT KNEE DIAGNOSTIC ARTHROSCOPY WITH AN ARTHROSCOPIC PARTIAL LATERAL MENISCECTOMY, . 2. ULTRASOUND-GUIDED INTRAARTICULAR INJECTION, LEFT KNEE, . PATIENT NAME: MELONIE BOYD DESCRIPTION OF PROCEDURE: Mr. Boyd was brought to the operative suite at which time she was placed in supine position on the OR table. Routine monitors were established. General anesthesia was delivered. After satisfactory induction of general anesthesia, a tourniquet was applied to the patient's right lower extremity per Mr. Coelho and the leg was placed in arthroscopic leg mancuso per Mr. Coelho. The leg was then elevated, exsanguinated, tourniquet was then insufflated to 300 mmHg. The right knee was circumferentially prepped and draped in usual sterile fashion per Shawn Marshallmarylou. Anterior arthroscopic portals were established. Systematic arthroscopic evaluation performed. Patellofemoral evaluation revealed grade II-III changes involving the lateral patellar facet. Chondroplasty was performed to any and all unstable articular cartilage utilizing a synovial resector. Medial facet was unremarkable. Trochlea was unremarkable. Medial gutter was unremarkable. Medial compartment revealed no meniscal or chondral pathology. Femoral notch revealed an intact anterior as well as posterior cruciate ligament. Lateral compartment revealed complex tearing involving the body and posterior horn of lateral meniscus, which was resected to a stable configuration utilizing hand and motorized instrumentation. No significant chondral pathology was noted and the popliteal recess revealed no loose bodies. Thorough lavage was performed with lactated Ringer solution. Arthroscopic portals were closed respectively with a subcuticular 4-0 Vicryl suture per Mr. Coelho. Postoperative intra-articular anesthetic injection performed by Mr. Coelho. Sterile dressing was applied by Mr. Coelho. At this time, the left knee was aseptically prepped and utilizing biplanar ultrasound guidance, the knee was injected with 80 mg of Depo-Medrol. Ms. Boyd was then extubated, taken to recovery room awake and alert without any anesthetic or operative complications. At the end of the case, sponge and needle counts were correct x2. During the procedure, Mr. Coelho was invaluable in positioning the patient along with preparation and draping of the extremity. He was also vital for any surgical exposure throughout the procedure in addition to closure of the postoperative incisions, postoperative anesthetic injection and application of postoperative dressing. Dictated By: Allan Chaves MD Date Dictated: 11/25/2023 07:27:15 Date Transcribed: 11/25/2023 07:59:29 BRENDA/RYLAN Receipt ID: [id number] Authenticated by Allan Chaves MD On 11/25/2023 08:33:40 AM at 0833 PATIENT NAME: MELONIE BOYD [facility] 2023-11-25 07:21:00 [facility] Brief Op Note REPORT#:[id number] REPORT STATUS: Signed REPORT INITIALIZATION DATE:11/25/23 TIME: 720 PATIENT: MELONIE BOYD UNIT #: [id number] ROOM/BED: : 61 AGE: 63 SEX: F ATTEND: Allan Chaves MD ADM AUTHOR: Allan Chaves MD REPT SERVICE DT/TIME: 11/25/23720 * ALL edits or amendments must be made on the electronic/computer document * Op/Inv Proc Note - Brief Pre-procedure diagnosis: right knee LM tear/ left knee OA Post-procedure diagnosis: same as pre procedure dx Procedures performed: right knee PLM [id number] injection left knee Primary Surgeon: Anastacio Rack Cleaner(s): Meliton OPA/LSA Findings: as above Complications: none Estimated blood loss in ml's: none Specimens removed/altered: none at 0723 [facility] #:[id number] END OF REPORT [facility] 2023-11-24 13:06:00 [id number] [place] [address] PATIENT NAME: MELONIE BOYD ADMIT DATE: 11/25/23 ACCOUNT NO: [id number] ROOM NO: AGE: 63 REPORT TYPE: HISTORY AND PHYSICAL SEX: F ADMITTING PHYSICIAN: ATTENDING PHYSICIAN:Allan Chaves MD ADMISSION DATE: 11/25/2023 13:00:00 ADMITTING DIAGNOSES: 1. Right knee meniscal tear. 2. Left knee osteoarthritis. HISTORY OF PRESENT ILLNESS: Ms. Boyd is a very pleasant 63-year-old female who has been having frequent swelling, catching and locking and a bigger right knee for the past several months. She has also had chronic pain in the left knee for the past several years. She denies any mechanical symptoms involving the left knee. Her pain has not improved despite extensive nonoperative intervention. Due to her progressive disability, she is admitted for arthroscopic meniscectomy of the right knee with potential chondroplasty as well as a concomitant ultrasound-guided intraarticular injection of the left knee. PAST MEDICAL HISTORY: Diabetes, cardiac arrhythmia, and neuropathy. PAST SURGICAL HISTORY: Include sinus surgery, eye surgery, cardiac stent, and tonsillectomy. FAMILY HISTORY: Thyroid disease, cerebrovascular disease, arthritis, hypertension, coronary artery disease, diabetes, and malignancy. SOCIAL HISTORY: She is a pack a day smoker. She does not drink. ALLERGIES: TO CODEINE. MEDICATIONS: Amitriptyline, atorvastatin, aspirin, digoxin, diazepam, estradiol, ezetimibe, Lantus insulin, losartan. REVIEW OF SYSTEMS: Negative. PHYSICAL EVALUATION: VITAL SIGNS: Reveal her to be 5 feet 9 inches tall. She weighs 85.2 kg. ORTHOPEDIC EVALUATION: Leg lengths are equal. Full painless motion of both hips. Examination of the right knee reveals a neutral alignment. She has a positive effusion. She has pain along the joint line with a positive Katelynn sign. There is no instability. Distal neurovascular status is intact. DIAGNOSTIC DATA: Radiographic evaluation including an MRI scan revealed mild chondromalacia involving the right knee with a prominent tear involving the body and posterior horn of the lateral meniscus. PATIENT NAME: MELONIE BOYD IMAGING DATA: Radiographic evaluation involving the left knee demonstrates significant multifocal chondromalacia without meniscal tearing. ASSESSMENT: Symptomatic meniscal tear with chondromalacia, right knee with osteoarthritis involving the left knee. SURGICAL PLAN: Arthroscopic meniscectomy with probable chondroplasty of the right knee with a concomitant ultrasound-guided intraarticular injection of the left knee. I have gone over at length with the patient the associated risks involved with this procedure. She understands that these risks include but not limited to bleeding, infection, neurovascular damage, persistent pain, loss of motion, recurrent tear, progression of arthritis, deep vein thrombi leading to pulmonary emboli along with complications secondary to anesthesia. Furthermore, she understands that there are no guarantees or warranties that she will be pain free as a result of the procedure. She accepts these risks and gives her informed consent to proceed. Dictated By: Allan Chaves MD Date Dictated: 11/24/2023 13:06:14 Date Transcribed: 11/24/2023 13:24:48 RLB/MECHELLE/ABENA/ABIGAIL Receipt ID: [id number] Authenticated by Allan Chaves MD On 11/25/2023 06:07:04 AM at 0607 PATIENT NAME: MELONIE BOYD [facility] 2023-11-23 15:02:19 Results for echo/EKG faxed. Patient has not had a stress test at [facility] Olesya Ross RN [facility] 2023-11-23 13:07:28 Melonie Boyd is a 63 year old female Ileana with [facility] calling stating she is needing the actual test results for the following Echo Stress test EKG Ileana stated this can be faxed to [phone] Ileana can be contacted for any questions at [phone] Maximiliano Cintron [facility] 2023-11-23 10:36:17 Clearance note refaxed to correct fax number [phone]. Will scan confirmation into the chart. Olesya Ross RN [facility] 2023-11-22 15:57:13 Last OV dated 09.02.2023 completed. [facility] 2023-11-22 15:47:10 Cardiac Clearance Request received via fax from [facility] and placed in Dr Aceves's folder to be reviewed. Last O/V - 09/02/2023 Last EKG - 12/21/2022 Last ECHO - 01/05/2023 Last Stress Test - None on file Mayelin Lynne MA [facility] 2023-11-22 10:26:21 Melonie Boyd is a 63 year old female[address] [facility] requesting that we fax clearance to correct fax number. Tom Oneil [facility] 2023-11-21 09:11:52 Called and spoke to patient the cardiac clearance is going Kimberly starks, faxed. Thank you. Radha Lau MA [facility] 2023-11-20 19:18:21 Last office note updated. Please fax [facility] 2023-11-18 14:16:44 Received cardiac clearance. Placed in Dr. Aceves's folder for review. Colten Saleem MA [facility] 2023-11-16 14:46:12 Patient notified of need for clearance request. She will call her doctor's office and have them fax clearance request form to . Olesya Ross RN [facility] 2023-11-16 13:22:41 Pt is calling stating she is needing clearance for surgery that is on nov 24 Please advise Mansoor Mcdonald [facility] 2023-11-01 17:18:00 [id number] [address] PATIENT NAME: MELONIE BOYD ADMIT DATE: ACCOUNT NO: [id number] ROOM NO: AGE: 62 REPORT TYPE: HISTORY AND PHYSICAL SEX: F ADMITTING PHYSICIAN: ATTENDING PHYSICIAN:Allan Chaves MD ADMISSION DATE: 11/03/2023 13:00:00 ADMITTING DIAGNOSIS: Right knee meniscal tear with associated chondromalacia with osteoarthritis involving the left knee. HISTORY OF PRESENT ILLNESS: Ms. Boyd is a 62-year-old female who has been having progressive pain in both knees for the past several months. Pain is occurring on a daily basis in the right knee. She notes frequent swelling, catching, and locking. She has chronic pain in the left knee without mechanical symptomatology. Due to her progressive disability, she is admitted for arthroscopic meniscectomy ____ potential chondroplasty with a concomitant intraarticular corticosteroid injection of the left knee. PAST MEDICAL HISTORY: Diabetes, cardiac arrhythmia, and neuropathy. PAST SURGICAL HISTORY: Include sinus surgery, eye surgery, cardiac stent, and tonsillectomy. FAMILY HISTORY: Thyroid disease, cerebrovascular disease, arthritis, hypertension, coronary artery disease, diabetes and malignancy. SOCIAL HISTORY: She is a pack a day smoker. She does not drink. ALLERGIES: TO CODEINE. MEDICATIONS: Amitriptyline, atorvastatin, digoxin, estradiol, ezetimibe, Lantus, losartan. REVIEW OF SYSTEMS: Negative. PHYSICAL EVALUATION: VITAL SIGNS: 5 feet 9 inches tall, 85.2 kg. EXTREMITIES: Leg lengths are equal. Full painless motion of both hips. Examination of the right knee reveals neutral alignment. She has 0 to 120 degrees of motion. She has severe pain on the lateral joint line with a positive Katelynn's sign. No instability is present. Her distal neurovascular status is intact. Examination of the left knee reveals neutral alignment. Tricompartmental crepitus. Negative Katelynn's sign. Negative instability. DIAGNOSTIC DATA: Radiographic evaluation including an MRI scan of the right knee revealed chondromalacia with a prominent tear of the lateral meniscus, multifocal chondromalacia noted involving the left knee. PATIENT NAME: MELONIE BOYD SURGICAL PLAN: Arthroscopy, meniscectomy, potential chondroplasty, right knee with a concomitant corticosteroid injection involving the left knee. I have gone over at length with the patient the associated risks involved with this procedure. She understands that these include but not limited to bleeding, infection, neurovascular damage, persistent pain, loss of motion, need for further operative intervention, progression of arthritis, recurrent tear, deep vein thrombi leading to pulmonary emboli along with complications secondary to anesthesia. Furthermore, she understands that there are no guarantees or warranties that she will be pain free as a result of the procedure. She accepts these risks and gives her informed consent to proceed. Dictated By: Allan Chaves MD Date Dictated: 11/01/2023 17:18:37 Date Transcribed: 11/01/2023 17:34:44 RLB/KANCHAN/SHANNONA/ABIGAIL Receipt ID: [id number] Authenticated by Allan Chaves MD On 11/03/2023 06:45:25 AM at 0645 PATIENT NAME: MELONIE BOYD [facility] 2023-09-02 09:00:00 Addended by: DARELL ACEVES on: 09/02/2023 09:27 AM Modules accepted: Orders [facility] 2023-06-22 15:15:06 Cardiac Clearance/Clinical Notes faxed back to [facility] and scanned into chart along with fax confirmation. Mayelin Lynne MA [facility] 2023-06-22 14:55:40 Faxing now. T [facility] 2023-06-22 09:02:18 Cardiac Clearance Request received via fax from [facility] and placed in Dr Portillo's folder to be reviewed. (Dr. Aceves is out of the clinic) Last O/V -03/09/2023 Last EKG - 12/21/2022 Last ECHO - 01/05/2023 Mayelin Lynne MA [facility] 2023-06-20 14:49:35 Melonie Boyd is a 62 year old female Pt calling to request a copy of her EKG to be faxed to [facility]. Pt is going to have surgery and they are requesting another copy. Please advise. [facility] Fx. [phone] Amarjit Henderson [facility] 2023-06-10 09:16:44 Cardiac Clearance Request received via fax from Dr. Hunter Moulton and placed in Dr Portillo's folder to be reviewed. (Dr. Aceves is out of the clinic) Last O/V -03/09/2023 Last EKG - 12/21/2022 Last ECHO - 01/05/2023 Mayelin Lynne MA [facility]
--- NOTE | 2023-11-27 10:00 | EDPHYS ---
Physician Documentation [facility] Name: Melonie Boyd Age: 63 yrs Sex: Female : 1960 Arrival Date: 11/27/2023 Time: 08:32 Bed 7 Private MD: ED Physician Camron Helms HPI: 11/26 09:08 This 63 yrs old Female presents to ER via Ambulatory with complaints of Knee Pain. kb 09:08 Pt is a 63 year old female who presents for right knee pain that started yesterday. kb states she had a meniscus repair on Tuesday at [facility]. Reports she was doing her exercises yesterday and felt a pop, but didn't have any pain afterwards. Then she felt another pop last night and started having throbbing pain. Denies any injury/fall. . Historical: - Allergies: 08:58 Codeine; hb 08:58 PENICILLINS; hb 08:58 Sulfa (Sulfonamide Antibiotics); hb 08:58 Adhesives; hb - Home Meds: 08:58 aspirin 81 mg oral tablet,chewable daily [Active]; Novolin R Sub-Q [Active]; Lantus hb U-100 Insulin 100 unit/mL Sub-Q solution 75 units 2 times per day [Active]; bupropion HCl 300 mg Oral Tablet, Extended Release 24 hr daily [Active]; ezetimibe 10 mg oral tablet daily [Active]; Digoxin Oral 2 times per day [Active]; losartan-hydrochlorothiazide 100-25 mg oral tablet daily [Active]; atorvastatin 40 mg oral tablet every day at bedtime [Active]; amitriptyline 10 mg Oral tablet daily [Active]; Centrum Silver oral daily [Active]; Vitamin D Oral daily [Active]; Potassium Chloride Oral daily [Active]; Fish Oil oral daily [Active]; - PMHx: 08:58 Atrial Fib; Kidney stones; Diabetes mellitus; Arthritis; Palpitations; hb - PSHx: 08:58 Heart Stents; hb - Immunization history:: Adult Immunizations up to date. - Infectious Disease History:: Denies. - Social history:: Smoking status: Patient denies any tobacco usage or history of. ROS: 09:07 Constitutional: As per HPI kb Exam: 09:07 Constitutional: This is a well developed, well nourished patient who is awake, alert, kb and in no acute distress. Head/Face: Normocephalic, atraumatic. ENT: Moist Mucous membranes Cardiovascular: Regular rate Respiratory: Respirations even and unlabored. No increased work of breathing. Talking in full sentences Abdomen/GI: Soft, non-tender. No distention Skin: Warm, dry with normal turgor. Normal color. Neuro: Awake and alert, GCS 15, oriented to person, place, time, and situation. Moves all extremities. Normal gait. 09:09 Musculoskeletal/extremity: Extremities: grossly normal except: noted in the right knee: kb pain, swelling, surgical incision with steristrips. no erythema, warmth or drainage, ROM: intact in all extremities, Circulation is intact in all extremities. Sensation intact. Vital Signs: 08:56 BP 150 / 65; Pulse 79; Resp 16; Temp 98.5(O); Pulse Ox 97% on R/A; Weight 85.28 kg; hb Height 5 ft. 9 in. ; Pain 4/10; 10:16 BP 133 / 55; Pulse 79; Resp 18; Temp 97.9; Pulse Ox 98% on R/A; ph 08:56 Body Mass Index 27.76 (85.28 kg, 175.26 cm) hb 08:56 Pain Scale: Adult hb MDM: 08:54 Patient medically screened. kb 09:11 Differential diagnosis: fracture, sprain, strain. Data reviewed: vital signs, nurses kb notes. 09:59 Test considered but Not performed: X-ray: knee xray considered but pt does not want kb that done. States she came to get an MRI to see if she reinjured her meniscus. Counseling: I had a detailed discussion with the patient and/or guardian regarding the historical points, exam findings, and any diagnostic results supporting the discharge/admit diagnosis, the need for outpatient follow up, a orthopedic surgeon, to return to the emergency department if symptoms worsen or persist or if there are any questions or concerns that arise at home. Administered Medications: No medications were administered Disposition: 12:01 Co-signature as Attending Physician, Camron Helms MD I reviewed the patient's care rt provided by the Advanced Practice Provider and agree with the diagnosis and treatment plan. Disposition Summary: 11/27/23 10:00 Discharge Ordered Notes: Location: Home kb Condition: Stable kb Diagnosis - Pain in right knee kb Followup: kb - With: Emergency Department - When: As needed - Reason: Worsening of condition Followup: kb - With: Private Physician - When: 2 - 3 days - Reason: Recheck today's complaints, Continuance of care, Re-evaluation by your physician Discharge Instructions: - Discharge Summary Sheet kb - Acute Knee Pain, Adult, [id number] kb Forms: - Medication Reconciliation Form kb - Antibiotic Education kb - Prescription Opioid Use kb - Patient Portal Instructions kb - Leadership Thank You Letter kb Signatures: Dispatcher [employer] EDMS Beatriz Donohue, CHEMICAL DEPENDENCY THERAPIST-C CHEMICAL DEPENDENCY THERAPIST-Lily Gudino, RN RN hb Camron Helms MD MD rt Corrections: (The following items were deleted from the chart) 09:11 08:58 PMHx: Diabetes - NIDDM; hb hb 09:11 09:07 Constitutional: This is a well developed, well nourished patient who is awake, kb alert, and in no acute distress. Head/Face: Normocephalic, atraumatic. ENT: Moist Mucous membranes Cardiovascular: Regular rate Respiratory: Respirations even and unlabored. No increased work of breathing. Talking in full sentences Abdomen/GI: Soft, non-tender. No distention Skin: Warm, dry with normal turgor. Normal color. MS/ Extremity: Pulses equal, no cyanosis. Neurovascular intact. Full, normal range of motion. Neuro: Awake and alert, GCS 15, oriented to person, place, time, and situation. Moves all extremities. Normal gait. kb 10:12 09:01 Knee Right 3 View+RAD.RAD.BRZ ordered. EDMS EDMS
--- NOTE | 2023-11-27 10:00 | ER ---
Nurse's Notes [facility] Name: Melonie Boyd Age: 63 yrs Sex: Female : 1960 Arrival Date: 11/27/2023 Time: 08:32 Bed 7 Private MD: Diagnosis: Pain in right knee Presentation: 11/26 08:56 Chief complaint: Had right knee meniscus repair by Dr. Chaves on Tuesday, reports hb increased pain after hearing loud pop x 2 yesterday. Coronavirus screen: At this time, the client does not indicate any symptoms associated with coronavirus-19. Ebola Screen: No symptoms or risks identified at this time. Initial Sepsis Screen: Does the patient meet any 2 criteria? No. Patient's initial sepsis screen is negative. Does the patient have a suspected source of infection? No. Patient's initial sepsis screen is negative. Risk Assessment: Do you want to hurt yourself or someone else? Patient reports no desire to harm self or others. Onset of symptoms was November 26, 2023. 08:56 Method Of Arrival: Ambulatory hb 08:56 Acuity: ABRAHAM 4 hb Historical: - Allergies: 08:58 Codeine; hb 08:58 PENICILLINS; hb 08:58 Sulfa (Sulfonamide Antibiotics); hb 08:58 Adhesives; hb - Home Meds: 08:58 aspirin 81 mg oral tablet,chewable daily [Active]; Novolin R Sub-Q [Active]; Lantus hb U-100 Insulin 100 unit/mL Sub-Q solution 75 units 2 times per day [Active]; bupropion HCl 300 mg Oral Tablet, Extended Release 24 hr daily [Active]; ezetimibe 10 mg oral tablet daily [Active]; Digoxin Oral 2 times per day [Active]; losartan-hydrochlorothiazide 100-25 mg oral tablet daily [Active]; atorvastatin 40 mg oral tablet every day at bedtime [Active]; amitriptyline 10 mg Oral tablet daily [Active]; Centrum Silver oral daily [Active]; Vitamin D Oral daily [Active]; Potassium Chloride Oral daily [Active]; Fish Oil oral daily [Active]; - PMHx: 08:58 Atrial Fib; Kidney stones; Diabetes mellitus; Arthritis; Palpitations; hb - PSHx: 08:58 Heart Stents; hb - Immunization history:: Adult Immunizations up to date. - Infectious Disease History:: Denies. - Social history:: Smoking status: Patient denies any tobacco usage or history of. Screenin:18 [facility] ED Fall Risk Assessment (Adult) History of falling in the last 3 months, ph including since admission No falls in past 3 months (0 pts) Confusion or Disorientation No (0 pts) Intoxicated or Sedated No (0 pts) Impaired Gait Yes (1 pt) Mobility Assist Device Used Yes (1 pt) Altered Elimination No (0 pt) Score/Fall Risk Level 0 - 2 = Low Risk Oriented to surroundings, Maintained a safe environment, Hourly rounding (assess needs \T\ fall precautionary measures) done. Abuse screen: Denies threats or abuse. Denies injuries from another. Nutritional screening: No deficits noted. Tuberculosis screening: No symptoms or risk factors identified. Assessment: 09:17 General: Appears in no apparent distress. Behavior is calm, cooperative. Pain: ph Complains of pain in right knee. Neuro: Level of Consciousness is awake, alert, obeys commands, Oriented to person, place, time, situation. Cardiovascular: Capillary refill < 3 seconds in bilateral fingers Patient's skin is warm and dry. Respiratory: Airway is patent Respiratory effort is even, unlabored, Respiratory pattern is regular, symmetrical. Derm: Skin is pink, warm \T\ dry. Musculoskeletal: Swelling present in right leg. 10:16 Reassessment: Patient appears in no apparent distress at this time. Patient and/or ph family updated on plan of care and expected duration. Pain level reassessed. Patient is alert, oriented x 3, equal unlabored respirations, skin warm/dry/pink. Pt d/c home w/ family. Vital Signs: 08:56 BP 150 / 65; Pulse 79; Resp 16; Temp 98.5(O); Pulse Ox 97% on R/A; Weight 85.28 kg; hb Height 5 ft. 9 in. ; Pain 4/10; 10:16 BP 133 / 55; Pulse 79; Resp 18; Temp 97.9; Pulse Ox 98% on R/A; ph 08:56 Body Mass Index 27.76 (85.28 kg, 175.26 cm) hb 08:56 Pain Scale: Adult hb ED Course: 08:34 Patient arrived in ED. mr 08:54 Beatriz Donohue [facility]C [facility] kb 08:54 Camron Helms MD is Attending Physician. kb 08:58 Triage completed. hb 09:11 Grace Lo, RN is Primary Nurse. ph 09:12 Arm band placed on. hb 09:18 Patient has correct armband on for positive identification. Bed in low position. Call ph light in reach. Side rails up X 1. Pulse ox on. NIBP on. Door closed. Noise minimized. 10:16 No provider procedures requiring assistance completed. Patient did not have IV access ph during this emergency room visit. Administered Medications: No medications were administered Medication: 09:18 VIS not applicable for this client. ph Outcome: 10:00 Discharge ordered by . kb 10:16 Discharged to home ambulatory, with friend, ph 10:16 Condition: good 10:16 Discharge instructions given to patient, Instructed on discharge instructions, follow up and referral plans. Demonstrated understanding of instructions, follow-up care, 10:17 Patient left the ED. ph Signatures: Beatriz Donohue, BOLIVAR-C TOBACCO CONDITIONER-Isidrob Eleanor Bynum, Reg Reg mr Grace Lo, RN RN ph Lily Garcia, OTONIEL RN hb Corrections: (The following items were deleted from the chart) 09:11 08:58 PMHx: Diabetes - NIDDM; hb hb
[2023-11-27 10:24] VITALS: BP 133/55; TEMP 97.9; O2SAT 98
== END 2023-11-27 10:17 | disposition home or self-care (01) ==
LOC: ER 08:32
DX: M25.561 Pain in right knee (principal); E11.9 Type 2 diabetes mellitus without complications; I48.91 Unspecified atrial fibrillation; Z88.0 Allergy status to penicillin; Z88.5 Allergy status to narcotic agent; Z88.2 Allergy status to sulfonamides; Z98.890 Other specified postprocedural states
CPT/HCPCS: 99283

== ENCOUNTER 2023-12-22 06:55 | Day surgery (SDC) | payer OTHER ==
[2023-12-22] MEDS ORDERED: ONDANSETRON 4 MG/2 ML VIAL ONE (07:07)
[2023-12-22] MEDS ORDERED: LIDOCAINE 2% MPF 5 ML VIAL ONE (07:07)
[2023-12-22] MEDS ORDERED: FENTANYL CITR 100 MCG/2 ML ONE ×2 (07:08→09:13)
[2023-12-22] MEDS ORDERED: MIDAZOLAM HCL 2 MG/2 ML INJ ONE (07:08)
[2023-12-22] MEDS ORDERED: propofoL 200 MG/20 ML VIAL IV ONE (07:08)
[2023-12-22] MEDS ORDERED: ROCURONIUM 50 MG/5 ML VIAL IV ONE (07:08)
[2023-12-22] MEDS ORDERED: SUCCINYLCHOLINE 20 MG/ML (10 ML) IV ONE (07:17)
[2023-12-22] MEDS ORDERED: SUGAMMADEX SODIUM 200 MG/2 ML VIAL IV ONE (07:17)
[2023-12-22] MEDS ORDERED: Levofloxacin500mg IV 500 MG/100 ML BAG IV ONE (07:20)
[2023-12-22] MEDS ORDERED: NA CHLORIDE 0.9% 1,000 ML ONE (07:20)
[2023-12-22] MEDS ORDERED: LIDOCAINE HCL/EPINEPHRINE 20 ML MDV ONE (07:26)
[2023-12-22] MEDS ORDERED: dexAMETHasone 4 MG/ML VIAL ONE (08:46)
[2023-12-22] MEDS ORDERED: EPHEDRINE SULF 50 MG/ML VIAL ONE (09:03)
[2023-12-22 11:36] VITALS: BP 120/62; TEMP 97.1; O2SAT 96
--- NOTE | 2023-12-22 13:23 | RAD REPORT ---
EXAM: Fluoroscopy use, Fluoroscopy <1 Hour HISTORY: SACRAL NEURO MOD COMPARISON: None FINDINGS: A total of 10 images were sent to PACS, during a fluoroscopically guided . No radiologist w as involved in protocoling or performance of the study, and no radiologist was present for the duration of the procedure. No interpretation of the saved images will be provided. Total fluoroscopy time: 0.5 minutes. IMPRESSION: Documentation of fluoroscopy use as above.
--- NOTE | 2023-12-26 07:42 | OP ---
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 Preoperative Diagnoses: Urge urinary incontinence, fecal incontinence. Postoperative Diagnoses: Urge urinary incontinence, fecal incontinence. Procedures Performed: 1.InterStim stage I and II (complete InterStim system implantation with incision and implantation of tined quadripolar lead electrodes into the S3 foramen with fluoroscopic guidance for needle placemen t). 2.Subcutaneous implantation of sacral nerve neurostimulator and electronic analysis and programming. Specimens: No specimens. Complications: No complications. Drains: No drains. Estimated Blood Loss: Minimal. Condition: Stable. Findings: Implant was placed in the right S3 foramen and then the battery in the right buttock pocke t. Strong responses on leads 2 and 3, but no response in 0 and 1, likely from the hematoma at the ti me of needle placement. Indications: The patient is 63-year-old, who had significant urge incontinence and fecal incontinenc e and going through the pathway for overactive bladder treatment. The patient underwent cystoscopy, negative for tumor or infection. Urodynamic testing showed severe urgency incontinence. She also lares s symptoms of fecal incontinence which were managed with diet and lifestyle changes, but not adequate ly controlled. So, the patient was given options of third line treatment with neuromodulation, both peripheral and sacral neuromodulation were all reviewed and the patient consented for an office PNE. After this, she had significant improvement in her symptoms, stage I and II. Consented a nd brought to the hospital. 2 g of Ancef were given and re-consented in the preoperative area. Description Of Procedure: She was taken back to the OR on the bed in a supine fashion. General endo tracheal anesthesia was placed. Then, she was flipped onto the OR bed using the OR protocol for pron e position. The leads were placed under her lower abdomen to flatten the sacrum and under her shins to allow the toes to dangle freely. The patient was prepped and draped in sterile fashion using Beta dine. C-arm was draped and moved into AP position. All the bony markings were marked. The sacral foramina from the borders were all visualized. After making the surface marking 9 cm above the coccyx in the midline until 12 cm, 2 cm on either harjeet es were marked at each level and after local injection was given, on both sides. S3 kelsey en was entered. Right S3 was pierced under fluoroscopic guidance. Needle was placed and once this w as completed and needle position was confirmed, visualization of ellen and toes, the stylet was rem geetha. A bidirectional guide was then placed and confirmed fluoroscopically. The foramen needle was then removed. Incision was made peripheral to the bidirectional guide with the 11 blade through the fascial layer. The lead introducer sheath and dilator were placed over the bidirectional guide and d irected to the foramen to ensure the radiopaque marker of the lead introducer did not extend beyond t he anterior edge of the sacrum. The dilator was unlocked and removed along with the bidirectional gu mattie and the lead was then placed through the introducer sheath to the first white line. The position was checked fluoroscopically. The lead was then further introduced until 3 electrodes were visible below the sacrum. Each electrode was tested for visualization of Ellen and plantar flexion of the great toe. After satisfactory positioning was checked in leads 2 and 3, I decided that the leads 0 a nd 1 were likely not responsive due to the significant amount of blood that initially was seen oozing out through the trocar. Once the needle was placed, this tamponaded and this could affect the signa l connection. On taking the AP and lateral views, appeared to be in an ideal direction and location. Th erefore, decision was made to leave this alone. Lead introducer sheath was retracted under continuous fluoroscopy deploying the tined leads into the presacral tissue. Incision was made into the subcutaneous tissue and the right buttock. A 5 cm incision was made after local was injected on the skin. Blunt dissection was continued until the gluteal fascia was identified, and hemostasis was secured for sufficient pocket for the neurostim ulator. Tunneling tool and straw was placed through the lead exit site subcutaneously to the incised pocket site. The tunneling tool was then fed through the straw and pulled out the pocket site. The lead was then cleaned off bodily fluids and dried. The lead was inserted into the InterStim neurost imulator and the metal bands were aligned with the blue lead tip clearly visible in the distal portio n of the header. The single set screw was tightened with the hex wrench. Neurostimulator was then placed in subcutaneous pocket with the etched identification side placed upw ards and the excessive lead wrapped counterclockwise on the neurostimulator. The programming head wa s placed over the implanted neurostimulator in a sterile cover to ensure adequate lead connection and that the parameters were within normal limits. Impedances were confirmed to be within normal limits . Wounds were irrigated with antibiotic solution and water and closed with the help of 3-0 running Archer cryl sutures in the subcutaneous plane and subcuticular closure with 4-0 Monocryl. were a ll closed. Counts were correct. Dermabond and 4x4s were placed. EBL was less than 5 mL. The patie nt was transferred to the recovery room after recovering her from anesthesia in the OR and programmin g was performed once she was more awake and these were entered into the chart. STANTON/JUSTICE Voice ID: [id number] Report ID: [id number]
== END 2023-12-22 11:10 | disposition home or self-care (01) ==
LOC: OR 06:55
PROVIDERS: ATTEND Obstetrics & Gynecology
PROC: 0JH73BZ Insertion of Single Array Stimulator Generator into Back Subcutaneous Tissue and Fascia, Percutaneous Approach (ICD-10-PCS; 2023-12-22)
PROC: 01HY3MZ Insertion of Neurostimulator Lead into Peripheral Nerve, Percutaneous Approach (ICD-10-PCS; principal; 2023-12-22 08:30)
DX: N39.41 Urge incontinence (principal); R15.9 Full incontinence of feces; E11.65 Type 2 diabetes mellitus with hyperglycemia; M54.50 Low back pain, unspecified; N95.2 Postmenopausal atrophic vaginitis; R00.2 Palpitations
CPT/HCPCS: 64561; 64590; J2704; J1100; J2001; J2250; J3010 ×2; J2405; J7030; C1778; C1767; 76000